=== PATIENT | male | born 1940 | race Caucasian/White ===

== ENCOUNTER 2023-03-27 20:06 | Inpatient (IN) | payer MEDICARE, OTHER, SELFPAY ==
[2023-03-27] VITALS (7 sets, daily range): BP systolic 132–143; BP diastolic 52–66; BMI 22.7; BMI 22.3
[2023-03-27 17:30] LABS: Hemoglobin 8.4 g/dL (13.0-18.0); Mean Corp Hgb Conc. 33.6 g/dL (33.0-37.0); Mean Corpuscular Hgb 29.2 pg (27.0-31.0); Mean Corpuscular Volume 86.8 fL (80.0-94.0); Mean Platelet Volume 10.6 fL (7.4-10.4); Platelet Count 103 10^3/uL (130-400); Red Blood Cell Count 2.88 10^6/uL (4.70-6.10); Red Cell Dist. Width 14.7 % (11.5-14.5)
[2023-03-27 17:40] LABS: INR 1.58; PT 18.7 Sec (11.4-14.6)
[2023-03-27 17:46] LABS: ALT (SGPT) 63 U/L (0-50); AST (SGOT) 66 U/L (17-59); Albumin 2.2 g/dl (3.5-5.0); Alkaline Phosphatase 326 U/L (38-126); Blood Urea Nitrogen 69 mg/dl (9-20); Calcium 8.5 mg/dl (8.4-10.2); Carbon Dioxide 24 mmol/L (22-30); Chloride 110 mmol/L (98-107); Estimated Creatinine Clearance 45 ml/min; Glucose 163 mg/dl (70-99); Potassium 4.5 mmol/L (3.5-5.1); Sodium 138 mmol/L (135-145); Total Bilirubin 1.3 mg/dl (0.2-1.3); Total Protein 5.1 g/dl (6.3-8.2); eGFR > 60.00
[2023-03-27 17:47] LABS: Lactic Acid 1.4 mmol/L (0.7-2.0)
--- NOTE | 2023-03-27 17:53 | PHANOTE ---
03/27/2023, [employer], spoke to pt.'s daughter to obtain pt.'s med. history; per daughter, pt. has Cyclophosphamide, Adriamycin, Rituxan, and Vincristine injections Q21D but is unsure of dosing. Could not confirm with another source. Per
daughter, pt. received chemo treatment last Monday (03/22/2023).
[2023-03-27 17:55] LABS: NT-proBNP 13000 pg/ml; Troponin I < 0.012 ng/ml
[2023-03-27 18:12] LABS: Absolute Neutrophils -Man Diff 1.4 10^3/uL (1.4-6.5); Band Neutrophils 8 % (0-3); Eosinophils 1 % (0-6); Lymphocytes 6 % (20-51); Monocytes 1 % (2-9); Normal RBC Morphology Yes; Platelets Checked Yes; Segmented Neutrophils 84 % (42-75); Total Cells Counted 100
[2023-03-27 18:13] LABS: White Blood Cell Count 1.6 10^3/uL (4.8-10.8)
--- NOTE | 2023-03-27 19:00 | EDRN ---
Report received, MART Silvestre in at bedside speaking with patient
--- NOTE | 2023-03-27 19:08 | ED.GENMED ---
History of Present Illness
General
Chief Complaint: Breathing Problem
Time Seen by Provider: 03/27/23 17:45
Travel History
Have you had any contact with someone who has COVID-19?: No
Do you have any symptoms of coronavirus? Fever > 100 degrees, chills, cough, shortness of breath, sore throat, loss of taste or smell, muscle aches, or headache?: Yes
Symptoms:: low pulseox.
History of Present Illness
History of Present Illness:
82-year-old male with history of hypertension and stage IV lymphoma currently being treated at [facility] in [facility] presents to the emergency department due to hypoxia. Patient was discharged from [facility]
last week, was admitted for inpatient chemotherapy and required multiple blood transfusions as well as iron infusion while inpatient. His last transfusion was 5 days ago. Per oncology protocol the patient is weighed and has a pulse ox screening
every day and was noted to have oxygen saturations in the low 80s today. He denies any chest pain or shortness of breath associated with that. He does note severe mouth discomfort and oral dryness as well as increase in urination today. He feels
generally weak and is unable to ambulate at his regular baseline. He also has reported leg swelling but his weights are stable. He is anticoagulated on Xarelto
Review of Systems
Review of Systems
Allergies reviewed?: Yes
All Other Systems: ROS reviewed and negative except as documented in HPI and ROS
Phy Exam
Physical Exam
Physical Exam:
GEN: Chronically ill-appearing, tachypneic but otherwise no immediate distress
Eyes: PERRLA, EOMs intact, no scleral icterus
HENT: NCAT, oral mucosa dry, no oral lesions
Lungs: Tachypneic, no accessory muscle use, faint crackles heard bilaterally but particularly in the left middle and lower [place]
Cardiac: RRR, no M/R/G, 1+ pitting edema bilateral lower extremities
Abdomen: S, NT, ND, NABS, no masses or hepatosplenomegaly
Neuro: AO x 3, no focal deficits to BUE/BLE, normal sensation throughout
MSK: No gross deformity or ecchymosis.
Skin: No rashes, petechiae. Normal color, no pallor or jaundice.
Psych: Calm, cooperative, proper hygiene
Scores
Heart Failure Risk
Heart Failure Risk Score: Yes
History of Stroke or TIA: No
History of intubation for respiratory distress: No
Heart rate on ED arrival >/= 110: No
SaO2 <90% on arrival on room air: Yes
HR >/=110 during 3min walk test (or too ill to perform test): Yes
ECG has acute ischemic changes: No
Urea >/=12mmol/L (BUN 33.6mg/dL): Yes
Serum CO2>/=35mmol/L: No
Troponin I or T elevated to HI Level (0.4mg/dL): No
NT-proBNP >/=5,000ng/L (5,000pg/ml): Yes
HF Risk Score: 5
Admission Status: VERY HIGH RISK 39.8% Consider admission to hospital
Course
Orders/Labs/Results
Orders:
Orders
03/27/23 16:54
Electrocardiogram (*1) Urgent
Reason for Study: Other
Other Reason for Exam: Possible Sepsis
Cardiac Monitoring- Treatment ONCE
EKG- Treatment ONCE
CR Chest - 2 Views Urgent
Comment:
Reason For Exam: suspected infection
03/27/23 17:12
Complete Blood Count/With Diff Urgent
Comprehensive Metabolic Panel Urgent
Lactic Acid Q4H
Comment: ON ICE, CANCEL 2ND ORDER IF FIRST LACTIC ACID LEVEL <2
Manual Differential Urgent
Prothrombin Time Urgent
Blood Culture Q30M
KEERTHI Source: Blood/Venous
Specimen Description:
Comment: FROM 2 SEPARATE SITES
Blood Culture Q30M
KEERTHI Source: Blood/Venous
Specimen Description:
Comment: FROM 2 SEPARATE SITES
03/27/23 17:23
NT-proBNP Urgent
Troponin I Urgent
03/27/23 19:08
0.9% Sodium Chloride 1000 ml [Nss] 1,000 ml IV BOLUS
03/27/23 19:14
COVID-19 Antigen Urgent
Source: Nasal Swab
Influenza A+B Rapid Molecular Urgent
KEERTHI Source: Nasal Swab
Specimen Description:
03/27/23 19:46
Procalcitonin Urgent
PCT Algorithmm Indication: Respiratory
03/27/23 19:49
Admit/Transfer Patient As Directed
Co-Sign Provider:
Level of Care: Inpatient admission
Assign to:: Telemetry
Physician / Group: vicente sandoval
Diagnosis: pneumonia
Reason for Telemetry: Arrhythmia
Date to Stop Telemetry: 03/30/23
Time to Stop Telemetry: 11:00
Reason for Hospitalization: pneumonia
Expected length of stay greater than two midnights?: Yes
ELOS- Estimated Length of Stay in days: 3
I certify the patient meets the requirements for IP care: Yes
03/27/23 19:51
Code Status As Directed
Resuscitation Status: Full Code
03/27/23 21:06
Acetaminophen [Tylenol] 650 mg PO Q4HPRN PRN
Sotalol [Betapace] 40 mg PO BID
03/27/23 21:06
ONCOLOGY CONSULT Routine
Consulting Provider: Bhargav Arzola
Was physician already notified: Yes
Legionella Urinary Antigen Routine
KEERTHI Source: Urine
Specimen Description:
Strep pneumoniae Antigen Routine
KEERTHI Source: Urine
Specimen Description:
Activity As Directed
Activity Level: Out of Bed-Early Mobility
Intake/ Output As Directed
Frequency: Per unit guidelines
Vital Signs As Directed
Frequency: Per unit guidelines
Weight As Directed
Frequency: Once
Comment: on admission
Pulse Ox/cont/shift [RESP] Routine
Quantity: 1
Pulse Ox/spot Check [RESP] Routine
Quantity: 1
Ot Eval And Treat Routine
Pt Eval And Treat Routine
Activity Level: As Tolerated
Speech Therapy Eval & Treat Routine
03/27/23 21:14
MRSA Screen Routine
KEERTHI Source: Nose
Specimen Description:
03/27/23 22:00
Latanoprost [Xalatan Ophthalmic Solution] 0 drop BOTH EYES HS
Piperacillin/Tazo 3.375 Gram [Zosyn] 3.375 gram in 50 ml IV Q6H
03/28/23 Breakfast
Regular
At Your Request: Limited Participation
Does patient need a safe tray?: No
Complete Blood Count/No Diff IN AM
Comprehensive Metabolic Panel IN AM
03/28/23 08:00
Allopurinol [Zyloprim] 300 mg PO DAILY
Amlodipine [Norvasc] 5 mg PO DAILY
Cholecalciferol (Vitamin D3) [VITAMIN D3 (cholecalciferol)] 25 mcg PO DAILY
Cyanocobalamin [Vitamin B-12] 1,000 mcg PO DAILY
Docusate Sodium [Colace] 100 mg PO DAILY
FOLic ACID [Folvite] 0.8 mg PO DAILY
Ferrous Sulfate [Feosol] 325 mg PO DAILY
Lactobac/Bifidobac [Visbiome] 1 cap PO DAILY
03/28/23 17:00
Rivaroxaban [Xarelto] 15 mg PO DAILY@1700
03/28/23 18:00
Atorvastatin [Lipitor] 20 mg PO QPM
Sodium Citrate/Citric Acid [Bicitra] 30 ml PO QPM
03/29/23 06:00
Complete Blood Count/No Diff IN AM
Comprehensive Metabolic Panel IN AM
03/30/23 06:00
Complete Blood Count/No Diff IN AM
Comprehensive Metabolic Panel IN AM
03/30/23 11:00
DC Protocol for Telemetry ONCE
03/31/23 06:00
Complete Blood Count/No Diff IN AM
Comprehensive Metabolic Panel IN AM
04/01/23 06:00
Complete Blood Count/No Diff IN AM
Comprehensive Metabolic Panel IN AM
Abnormal Lab Results
03/27/23 03/27/23
17:12 19:46
WBC 1.6 L* 10^3/uL
(4.8-10.8)
RBC 2.88 L 10^6/uL
(4.70-6.10)
Hgb 8.4 L g/dL
(13.0-18.0)
Hct 25.0 L %
(39.0-52.0)
RDW 14.7 H %
(11.5-14.5)
Plt Count 103 L 10^3/uL
(130-400)
MPV 10.6 H fL
(7.4-10.4)
Segmented Neutrophils 84 H %
(42-75)
Band Neutrophils 8 H %
(0-3)
Lymphocytes (Manual) 6 L %
(20-51)
Monocytes (Manual) 1 L %
(2-9)
PT 18.7 H Sec
(11.4-14.6)
Chloride 110 H mmol/L
(98-107)
BUN 69 H mg/dl
(9-20)
Glucose 163 H mg/dl
(70-99)
AST 66 H U/L
(17-59)
ALT 63 H U/L
(0-50)
Alkaline Phosphatase 326 H U/L
(38-126)
Total Protein 5.1 L g/dl
(6.3-8.2)
Albumin 2.2 L g/dl
(3.5-5.0)
Procalcitonin 1.75 H ng/ml
(0.0-0.25)
03/27/23 17:12
03/27/23 17:12
Vital Signs
Initial and Last Documented VS:
Initial Vital Signs
Temp Pulse Resp BP Pulse Ox
97.5 F 66 24 143/66 95
03/27/23 16:49 03/27/23 16:49 03/27/23 16:49 03/27/23 16:49 03/27/23 16:49
Last Documented Vital Signs
Temp Pulse Resp BP Pulse Ox
97.5 F 68 18 142/61 98
03/27/23 21:22 03/27/23 22:12 03/27/23 21:22 03/27/23 22:12 03/27/23 21:22
MDM/Problems Addressed
MDM/Problems Addressed:
At this point it is unclear whether the patient truly has a bilateral pneumonia versus vascular congestion with pulmonary edema. He does appear to be third spacing with lower extremity edema and bilateral crackles on exam however is intravascularly
dry. Hemoglobins are stable from his past hospitalization thus his elevated BUN to creatinine ratio is not likely indicative of a GI bleed particular given that he is anticoagulated. At this time we will try gentle IV hydration and determine if
the patient can handle this before jumping right to diuresis, feel it is prudent for the patient undergo an echocardiogram tomorrow morning to determine if this is truly acute CHF versus an alternative etiology such as pneumonia
*Critical Care Note
Total Time (30-74mins, 75-104mins- exclusive of procedures): Not Applicable
Update Note
Update Note:
Reviewed labs through patient's portal: Hemoglobin was in the mid eights at discharge from [facility]. BUN was 33 and creatinine 1.9 on March 21
ED Attending Note
-
Portions of this chart may have been created with voice recognition software.� Occasional wrong word or��sound alike� substitutions may have occurred due to the inherent limitations of voice recognition software.
Discharge Plan
Departure
Patient Disposition: Admit
Date of Disposition: 03/27/23
Time of Disposition: 19:14
Admit to: Med/Surg
Presentation/result/management discussed w/ accepting MD/DO: Hospitalist
Discharge Problem:
Acute hypoxemic respiratory failure
Interventions
Interventions:
*Risk Screen - Suicide Last Done: 03/27/23 16:56
*General Assessment Last Done: 03/27/23 16:56
*Neglect/Abuse Screening Last Done: 03/27/23 16:56
ED- Fall Risk Assessment Last Done: 03/27/23 16:57
*ED COVID-19 Vaccine History Last Done: 03/27/23 16:57
*Nursing Disposition Last Done: 03/27/23 21:19
ED- Cardiac Assessment Last Done: 03/27/23 16:57
ED- Pulmonary Assessment Last Done: 03/27/23 16:57
Discharge Date and Time
Discharge Date/Time: 03/27/23 21:22
[2023-03-27] MEDS: NSS 1000 IV (19:15)
--- NOTE | 2023-03-27 19:15 | HPS.HSE ---
Addendum entered and electronically signed by Kapil Martínez MD 03/27/23 20:36:
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
today at home. No fevers or cough or chest pain. Patient was recently hospitalized at [facility] in [place] for presumed pneumonia and heart failure. He received IV antibiotics and was diuresed. Patient completed cefdinir yesterday. Chest
x-ray shows bilateral reticulonodular markings. [place] [address] and pancytopenia with differential showing bands and decreased lymphocytes/monocytes.
Patient has hypoxic respiratory insufficiency. Cannot rule out recurrent pneumonia. Check blood cultures, Legionella, MRSA swab. Empiric vancomycin/Zosyn. Given IV fluid bolus. Could be an element of heart failure as well. Infiltrates on chest
x-ray concerning as well for diffuse large B-cell lymphoma/pneumonitis from chemotherapy. Oncology consulted. Patient recently had echocardiogram at [facility] and records available with daughter.
Original Note:
Family Physician
-
Family Physician:
Chief Complaint
-
Hypoxia
History of Present Illness
82-year-old with past medical history for A-fib, gout,, large B cell non-Hodgkin's lymphoma got his first dose of chemo last week presented to us with hypoxia at home. Patient was oxygenating only in the 80s at home. Patient denied any short of
breath, chest pain. Stated worsening of bilateral lower extremities edema. Denied weight gain. Stated chronic runny nose denied any cough. Patient denied any fever, chills. Patient denied any headache, dizziness, syncopal episode. Patient
denied any abdominal pain, nausea, vomiting, diarrhea.. Patient stated increased frequency in urination. Denied dysuria hematuria.
Chest x-ray with bilateral pneumonia. Admitting for further management.
Patient was admitted to hospital in [place] with pneumonia and heart failure. he was treated with diuretics and abx. patient also received multiple transfusion as well. Patient just finished cefdinir yesterday.
Medical History
Past Medical History
Past Medical History: Reports Other
Additional Past Medical History:
Diffuse large B cell non-Hodgkin's lymphoma
Glaucoma
Polycythemia
Hypertension
Gout
Hyperlipidemia
Past Surgical History: Reports Other
Additional Past Surgical History:
Meniscus repair
Hernia repair
Social History
Tobacco: Non-smoker
Alcohol: None
Drug: None
Personal: Single
Living: Alone
Family History
Family History: Not pertinent
Allergies / Home Medications
Allergies reflects when Allergies were last updated in [employer].
Home Medications with original date entered in [employer]
Allergy/Medication List:
Allergies
Allergy/AdvReac Type Severity Reaction Status Date / Time
No Known Allergies Allergy Unverified 03/27/23 16:49
Home Medications
Adriamycin 1 dose IV Q21D 03/27/23
Rituxan 1 dose IV Q21D 03/27/23
acidophilus-sporogenes 35 million-25 million cell tablet (Acidophilus Ex Str (L. sporog)) 1 tab PO DAILY 03/27/23
allopurinol 300 mg tablet 300 mg PO DAILY 03/27/23
amlodipine 5 mg tablet 5 mg PO DAILY 03/27/23
atorvastatin 20 mg tablet 20 mg PO QPM 03/27/23
cholecalciferol (vitamin D3) 1 tab PO DAILY 03/27/23
cyanocobalamin (vitamin B-12) 1 tab PO DAILY 03/27/23
cyclophosphamide 1 dose IV Q21D 03/27/23
docusate sodium 100 mg capsule (Stool Softener) 100 mg PO DAILY 03/27/23
ferrous sulfate 325 mg (65 mg iron) tablet 325 mg PO DAILY 03/27/23
folic acid 800 mcg tablet 0.8 mg PO DAILY 03/27/23
latanoprost 0.005 % eye drops 1 drp BOTH EYES HS 03/27/23
ondansetron 4 mg disintegrating tablet 4 mg PO Q6H PRN nausea/vomiting 03/27/23
prednisone 20 mg tablet 100 mg PO DIRECTED 03/27/23
rivaroxaban 15 mg tablet (Xarelto) 15 mg PO DAILY@1700 03/27/23
sodium citrate-citric acid 500 mg-334 mg/5 mL oral solution 30 ml PO QPM 03/27/23
sotalol 80 mg tablet 40 mg PO BID 03/27/23
vincristine 1 dose IV Q21D 03/27/23
Review of Systems
-
Constitutional: Reports No Symptoms
EENT: Reports No Symptoms
Respiratory: Reports Other (Hypoxia)
Cardiac: Reports No Symptoms
Abdomen/GI: Reports No Symptoms
: Reports No Symptoms
Musculoskeletal: Reports Edema (Bilateral lower extremities edema)
Skin: Reports No Symptoms
Neurological: Reports No Symptoms
Endocrine: Reports No Symptoms
Hematologic/Lymphatic: Reports No Symptoms
Psych: Reports No Symptoms
Physical Exam
Vital Signs
Vital Signs
Temp Pulse Resp BP Pulse Ox
97.5 F 61 19 137/54 95
03/27/23 16:49 03/27/23 19:00 03/27/23 19:00 03/27/23 19:00 03/27/23 16:49
Physical Exam
General: Well Developed, Well Nourished and No Apparent Distress
HEENT: NormoCephalic, Moist mucous membranes and Atraumatic
Respiratory: Clear
Cardiac: S1/S2 and Regular Rhythm; No Murmur or Rub
GI: Soft, Non Tender, Non Distended and Normal Bowel Sounds; No Organomegaly
Rectal: Deferred by Provider
Musculoskeletal: No Clubbing, No Cyanosis and Other (Bilateral lower extremities edema)
Skin: No Rash
Neuro: AO x 3 and Nonfocal/grossly intact
Psych: Calm
Laboratory Results
-
03/27/23 17:12
03/27/23 17:12
Laboratory Results
PT 18.7 Sec (11.4-14.6) H 03/27/23 17:12
INR 1.58 03/27/23 17:12
Lactic Acid Cancelled 03/27/23 21:00
Total Bilirubin 1.3 mg/dl (0.2-1.3) 03/27/23 17:12
AST 66 U/L (17-59) H 03/27/23 17:12
ALT 63 U/L (0-50) H 03/27/23 17:12
Alkaline Phosphatase 326 U/L (38-126) H 03/27/23 17:12
Troponin I < 0.012 ng/ml 03/27/23 17:23
Data Reviewed
-
Diagnostic Radiology: Report Reviewed by me
Lab Data: Labs Reviewed by me
Impression/Plan
-
# Acute hypoxia from bilateral pneumonia
-WBCs 1.6, bandemia
-COVID pending
-Flu pending
-Chest x-ray with impression of Bilateral reticulonodular markings as described, very likely representing bilateral pneumonia. Continued radiographic follow-up is advised.
-Blood cultures sent from ER
-IV Vanco and Zosyn
-Patient oxygenating 96% on 4 L
-Continue supplemental oxygen to keep sat greater than 92
-Wean as tolerated
- urine Legionella
-Strep pneumonia
# Anemia likely chronic/pancytopenia likely from diffuse large B cell non-Hodgkin's lymphoma
-got chemo a week ago, next due to 3 weeks.
-Hemoglobin 8.4, WBC 1.6, platelets 103
-No active bleeding
-Continue to monitor
-oncology consulted
# Elevated liver enzymes
-AST 66, ALT 63, ALK 326
-ctm
-denied abdominal pain
-ctm
# Gout
-Allopurinol continued
# Essential hypertension
-Norvasc continued
#HLD
-statin continued
# History of paroxysmal A-fib
-Sotalol and Xarelto continued
-EKG with impression of sinus rhythm with first-degree heart block, prolonged QT
# DVT prophylaxis
-On Xarelto
# CODE STATUS
-Full code
[2023-03-27 19:50] LABS: COVID-19 Antigen Negative (Negative)
[2023-03-27 20:26] LABS: Procalcitonin 1.75 ng/ml (0.0-0.25)
--- NOTE | 2023-03-27 21:17 | PTCARENOTE ---
pt arrived from ed, walked in unassisted on 4 L NC. aaox3, VSS, tele placed. see MAR and assessment for further details. call garvin within reach.
--- NOTE | 2023-03-27 21:41 | PHA.VAN.IN ---
Assessment
- Assessment
Renal Function: Unknown baseline
Concomitant Antimicrobials: ZOSYN
- Previous Dosing Experience
Previous Regimen: NONE
AUC Dosing Plan
- Dosing Variables
Dosing Weight (kg): 66.4
Dosing CrCl (ml/min): 44
Vd coefficient (L/kg): 0.7
- Empiric Dosing
Initial / Loading Dose: 1500MG
Maintenance Regimen: 1GM IV Q24H
Estimated AUC (mcg*h/mL): 526
Estimated Peak (mcg*h/mL): 34
Estimated Trough (mcg/ml): 13
Estimated Half Life (H): 16.6
Pharmacokinetics Vancomycin I
- -
Patient Age: 82
Patient Sex: Male
Vancomycin Day #: 1
Indication: Pulmonary/Respiratory
Requesting Provider: JAMARI
Height / Weight:
Height 5 ft 8 in
Actual Weight 66.395 kg
Pertinent Past Medical History: LARGE CELL LYMPHOMA
- Vital Signs / Lab Results
Temp Pulse Resp BP Pulse Ox
97.5 F 68 18 142/61 98
03/27/23 21:22 03/27/23 21:22 03/27/23 21:22 03/27/23 21:22 03/27/23 21:22
Lab Results - Hematology
03/27/23
17:12
WBC 1.6 L*
Band Neutrophils 8 H
Lab Results - Chemistry
03/27/23
17:12
BUN 69 H
Creatinine 1.2
Estimated Creat Clear 45
Albumin 2.2 L
03/27/23 03/27/23
17:12 21:00
Lactic Acid 1.4 Cancelled
Microbiology Results
03/27/23 19:14 Influenza Types A & B (FREDA) - Final
Nasal Swab Negative for Influenza A & B, NAAT
Negative results must be combined with clinical observations
and patient history.
Nucleic Acid Amplification test (NAAT)performed on the
[employer] platform.
[2023-03-27] MEDS: ZOSYN 50 IV (22:07)
[2023-03-27] MEDS: BETAPACE 40 MG PO (22:12)
[2023-03-27] MEDS: XALATAN OPHTHALMIC SOLUTION 1 DROP BOTH EYES (22:12)
[2023-03-27] MEDS: VANCOCIN 300 MG IV (23:01)
[2023-03-27] MEDS: VANCOCIN 300 ML IV (23:01)
[2023-03-28] VITALS (9 sets, daily range): BP systolic 124–147; BP diastolic 55–64
[2023-03-28] MEDS: ZOSYN 50 IV ×2 (03:20→09:16)
[2023-03-28 05:12] LABS: Mean Corp Hgb Conc. 32.4 g/dL (33.0-37.0); Mean Corpuscular Hgb 28.1 pg (27.0-31.0); Mean Corpuscular Volume 86.8 fL (80.0-94.0); Red Blood Cell Count 2.35 10^6/uL (4.70-6.10); Red Cell Dist. Width 14.6 % (11.5-14.5)
[2023-03-28 05:25] LABS: ALT (SGPT) 45 U/L (0-50); AST (SGOT) 43 U/L (17-59); Albumin 1.8 g/dl (3.5-5.0); Alkaline Phosphatase 242 U/L (38-126); Blood Urea Nitrogen 65 mg/dl (9-20); Calcium 8.2 mg/dl (8.4-10.2); Carbon Dioxide 25 mmol/L (22-30); Chloride 112 mmol/L (98-107); Estimated Creatinine Clearance 45 ml/min; Glucose 158 mg/dl (70-99); Potassium 4.3 mmol/L (3.5-5.1); Sodium 142 mmol/L (135-145); Total Bilirubin 1.4 mg/dl (0.2-1.3); Total Protein 4.4 g/dl (6.3-8.2); eGFR > 60.00
[2023-03-28] MEDS: VANCOCIN 200 IV (05:39)
[2023-03-28 05:40] LABS: Hematocrit 20.4 % (39.0-52.0); Hemoglobin 6.6 g/dL (13.0-18.0); White Blood Cell Count 0.8 10^3/uL (4.8-10.8)
[2023-03-28 07:05] LABS: Hematocrit 19.9 % (39.0-52.0); Hemoglobin 6.6 g/dL (13.0-18.0)
--- NOTE | 2023-03-28 07:05 | W.PN.UPDATE ---
Update Note
Progress Note Update
RN reports HH dropped from 8.4 to 6.6
Will recheck hh given sig drop and obtain type and screen
Blood consent obtained from pt. He has had transfusions before and understand benefits and risks. I asked if her needs premedication with prior transfusions but he said no.
Will order 1 unit PRBC
[2023-03-28 08:12] LABS: Mean Platelet Volume 11.1 fL (7.4-10.4); Platelet Count 79 10^3/uL (130-400)
[2023-03-28] MEDS: COLACE 100 MG PO (08:12)
[2023-03-28] MEDS: ZYLOPRIM 300 MG PO (08:12)
[2023-03-28] MEDS: FEOSOL 325 MG PO (08:12)
[2023-03-28] MEDS: VITAMIN D3 (cholecalciferol) 25 MCG PO (08:12)
[2023-03-28] MEDS: FOLVITE 0.800000000000000044 MG PO (08:12)
[2023-03-28] MEDS: VITAMIN B-12 1000 MCG PO (08:12)
[2023-03-28] MEDS: VISBIOME 1 CAP PO (08:12)
[2023-03-28] MEDS: BETAPACE PO (08:13)
[2023-03-28] MEDS: NORVASC 5 MG PO (08:13)
--- NOTE | 2023-03-28 09:03 | PTOTSP ---
Dysphagia Evaluation
Patient presents with signs concerning for WFL-mild oropharyngeal dysphagia. He reported signs of aspiration (i.e., coughing with liquids greater than solids) prior to admission and has had recurrent PNA (i.e., recently hospitalized with PNA and/or
HF, now admitted with concern for b/l PNA.) He is at an elevated risk for complications if aspiration were to occur given lymphoma with current chemo.
Video swallow study warranted to assess oral and pharyngeal stages of swallowing, r/o aspiration, and provide further recommendations. Patient would like to discuss this further with his daughter who is an SEMICONDUCTOR EQUIPMENT TECHNICIAN.
Recommend:
1. Regular, Thin Liquids
2. Medications as best tolerated
3. General aspiration precautions
4. Oral care 3-5x daily to reduce risk for complication if aspiration were to occur
5. Video swallow study if patient in agreement.
[2023-03-28] MEDS: MIRALAX 17 GRAMS PO (09:17)
--- NOTE | 2023-03-28 09:30 | CON.ONC ---
Addendum entered and electronically signed by Liliana Narvaez MD 03/28/23 10:58:
Case d/w Dr. Christian. She's been following patient for 14 years, originally for ET, on Hydrea
She notes patient recently had weight loss and cytopenias, hydrea stopped
BM biopsy showed marginal zone lymphoma
PET showed patchy areas of uptake in bone marrow, as well as a focus of uptake at left pectoral muscle - biopsy c/w DLBCL
Pretreatment chemo w/ EF 60%
Patient underwent port placement and spiked fever to 103 the next day
He was admitted to hospital, chest imaging showed lung infiltrates, treated as pneumonia and CHF
He then got chemo #1, R-mini CHOP (adriamycin 25mg/m2) on 03/22, with GCSF on 03/23
Still concern for atypical infection. Would consider bronch.
Original Note:
Impression
Impression
hypoxia, abnormal CXR
DLBCL, s/p cycle #1 'half-dose' RCHOP + GCSF, given early/mid Mar 2023
hospital admission ([facility]) last week for hypoxia, treated for PNA and CHF
afib on Xarelto
pancytopenia, from chemo
h/o PVera, previously treated w/ Hydrea
Plan
Plan
Agree w/ plans for pRBCs
It appears that he received GCSF, no role for additional growth factor
Monitor CBC
Currently on empiric Zosyn/Vanco (just completed course of cefdinir)
Clinical picture does not seem c/w typical pneumonia or CHF exacerbation - would consider pulm and cardiology evaluation
Would obtain CT chest if/when renal function improves, I have concern for atypical infection and/or pneumonitis
Records requested from [facility]. Will reach out to Dr. Christian as well.
Patient History
History of Present Illness
82 yo M w/ recently diagnosed DLBCL (via biopsy of right axilla or right lung/chest, unclear site, also BM biopsy), received cycle # RCHOP + GCSF ('half dose' per patient) with Dr. Christian in [place], presented with hypoxia, pulse ox in the low
80s at home. His recent history is noted for hospital admission in shortly after first chemo treatment, for dyspnea, treated for heart failure + pneumonia, recently finished cefdinir. CXR showed bilateral reticulonodular markings. CBC noted for
WBC 0.8, hgb 6.6, platelet 79. BUN is 65, creatinine is 1.2. He's required prbcs and was given iron infusions, reports. complains of dry mouth, decreased appetite, and some leg swelling. He denies bleeding, fevers.
He's well known to Dr. Christian, has seen her for 14 years for history of PVera, previously treated with Hydrea, now discontinued. He has afib, on Xarelto, director energy is Dr. Rossi in . PMD is Dr. Canela in .
Past-Medical/Surgical History
PMH/PSH - as per the HPI, also noted for gout, HTN, HLD, glaucoma
SH - Lives in , family in [place], non smoker
FH - N/C
Patient Medication
Medication Instructions Recorded Confirmed Last Taken Type
Adriamycin 1 dose IV Q21D Cancer 03/27/23 Unknown History
Rituxan 1 dose IV Q21D Cancer 03/27/23 Unknown History
acidophilus-sporogenes 35 1 tab PO DAILY probiotic 03/27/23 03/27/23 03/27/23 History
million-25 million cell tablet
(Acidophilus Ex Str (L. sporog))
allopurinol 300 mg tablet 300 mg PO DAILY gout 03/27/23 03/27/23 03/27/23 History
amlodipine 5 mg tablet 5 mg PO DAILY blood pressure 03/27/23 03/27/23 03/27/23 History
atorvastatin 20 mg tablet 20 mg PO QPM High Cholesterol 03/27/23 03/27/23 03/26/23 History
cholecalciferol (vitamin D3) 1 tab PO DAILY Supplement 03/27/23 03/27/23 03/27/23 History
cyanocobalamin (vitamin B-12) 1 tab PO DAILY Supplement 03/27/23 03/27/23 03/27/23 History
cyclophosphamide 1 dose IV Q21D Cancer 03/27/23 Unknown History
docusate sodium 100 mg capsule 100 mg PO DAILY Constipation 03/27/23 03/27/23 03/27/23 History
(Stool Softener)
ferrous sulfate 325 mg (65 mg 325 mg PO DAILY Supplement 03/27/23 03/27/23 03/27/23 History
iron) tablet
folic acid 800 mcg tablet 0.8 mg PO DAILY Supplement 03/27/23 03/27/23 03/27/23 History
latanoprost 0.005 % eye drops 1 drp BOTH EYES HS Eye Condition 03/27/23 03/27/23 03/26/23 History
ondansetron 4 mg disintegrating 4 mg PO Q6H PRN nausea/vomiting 03/27/23 03/27/23 Unknown History
tablet
prednisone 20 mg tablet 100 mg PO DIRECTED 03/27/23 03/27/23 03/26/23 History
Anti-Inflammatory
rivaroxaban 15 mg tablet (Xarelto) 15 mg PO DAILY@1700 Blood Clot 03/27/23 03/27/23 03/26/23 History
Prevention/Tx
sodium citrate-citric acid 500 30 ml PO QPM 03/27/23 03/27/23 03/26/23 History
mg-334 mg/5 mL oral solution
sotalol 80 mg tablet 40 mg PO BID Arrhythmia 03/27/23 03/27/23 03/27/23 History
vincristine 1 dose IV Q21D Cancer 03/27/23 Unknown History
Active Medications
Generic Name Dose Route Start Last Admin
Trade Name Freq PRN Reason Stop Dose Admin
Acetaminophen 650 mg 03/27/23 21:06
Acetaminophen 325 Mg Tablet PO 04/24/23 21:05
Q4HPRN PRN
if temp > 101 F
Allopurinol 300 mg 03/28/23 08:00 03/28/23 08:12
Allopurinol 300 Mg Tablet PO 04/25/23 07:59 300 mg
DAILY ENRIQUE Administration
Amlodipine Besylate 5 mg 03/28/23 08:00 03/28/23 08:13
Amlodipine 5 Mg Tablet PO 04/25/23 07:59 5 mg
DAILY ENRIQUE Administration
Atorvastatin Calcium 20 mg 03/28/23 18:00
Atorvastatin (Lipitor) 20 Mg Tablet PO 04/25/23 17:59
QPM ENRIQUE
Cholecalciferol 25 mcg 03/28/23 08:00 03/28/23 08:12
Cholecalciferol (Vitamin D3) 25 Mcg Tablet (1,000 Units) PO 04/25/23 07:59 25 mcg
DAILY ENRIQUE Administration
Citric Acid/Sodium Citrate 30 ml 03/28/23 18:00
Sodium Citrate/Citric Acid (Oral Solution) 30 Ml Cup PO 04/25/23 17:59
QPM ENRIQUE
Cyanocobalamin 1,000 mcg 03/28/23 08:00 03/28/23 08:12
Cyanocobalamin 1,000 Mcg Tablet PO 04/25/23 07:59 1,000 mcg
DAILY ENRIQUE Administration
Docusate Sodium 100 mg 03/28/23 08:00 03/28/23 08:12
Docusate Sodium 100 Mg Capsule PO 04/25/23 07:59 100 mg
DAILY ENRIQUE Administration
Ferrous Sulfate 325 mg 03/28/23 08:00 03/28/23 08:12
Ferrous Sulfate 325 Mg Tablet PO 04/25/23 07:59 325 mg
DAILY ENRIQUE Administration
Folic Acid 0.8 mg 03/28/23 08:00 03/28/23 08:12
Folic Acid 0.4 Mg Tablet PO 04/25/23 07:59 0.8 mg
DAILY ENRIQUE Administration
Heparin Sodium (Porcine) 500 unit 03/28/23 03:57 03/28/23 04:34
Heparin Flush Pf (100 Unit/Ml) 5 Ml Syringe IV 04/25/23 03:56 500 unit
PRN PRN Administration
PORT FLUSH
Piperacillin Sod/Tazobactam Sod 3.375 gram in 50 mls @ 100 mls/hr 03/27/23 22:00 03/28/23 09:16
Zosyn IV 50 mls
Q6H ENRIQUE Administration
Vancomycin HCl 1 gram in 200 mls @ 200 mls/hr 03/28/23 06:00 03/28/23 05:39
Vancocin IV 200 mls
Q24H ENRIQUE Administration
Protocol
Lactobacillus/Bifidobacterium 1 cap 03/28/23 08:00 03/28/23 08:12
Lactobac/Bifidobac (Visbiome) PO 04/25/23 07:59 1 cap
DAILY ENRIQUE Administration
Latanoprost 0 drop 03/27/23 22:00 03/27/23 22:12
Latanoprost 0.005% (Ophthalmic Solution) 2.5 Ml Bottle BOTH EYES 04/24/23 21:59 1 drop
HS ENRIQUE Administration
Polyethylene Glycol 17 grams 03/28/23 10:00 03/28/23 09:17
Polyethylene Glycol Powder 17 Grams Packet PO 04/25/23 09:59 17 grams
DAILY ENRIQUE Administration
Rivaroxaban 15 mg 03/28/23 17:00
Rivaroxaban 15 Mg Tablet PO 04/25/23 16:59
DAILY@1700 ENRIQUE
Sodium Chloride 0 flush 03/27/23 22:00
Sodium Chloride 0.9% (Flush) Syringe IV 04/24/23 21:59
PER PROTOCOL ENRIQUE
Sotalol HCl 40 mg 03/27/23 21:06 03/28/23 08:13
Sotalol 80 Mg Tablet PO 04/24/23 21:05 Not Given
BID ENRIQUE
Review of Systems
-
History Source: Patient
Constitutional: Reports No Appetite and Fatigue; Denies Fever
EENT: Reports Other (dry mouth, chapped lips); Denies Sore Throat
Respiratory: Reports Trouble Breathing; Denies Hemoptysis
Cardiac: Denies Chest Pain
GI: Denies Abdominal Pain, Nausea, Vomiting, Diarrhea, Constipated or Bloody Stools
Musculoskeletal: Reports Edema
Hematologic/Lymphatic: Denies Swollen Glands
Physical Exam
-
General: Well Developed, Well Nourished, No Apparent Distress and Comfortable; Negative Appears in Distress
HEENT: Negative Moist Mucous Membranes
Cardiology: Normal Sinus Rhythm and Murmur
Pulmonary: Rales (dry rales throughout)
GI: Soft and Normal Bowel Sounds
Musculoskeletal: Edema, Right Lower Extrem and Edema, Left Lower Extrem
Extremities: Edema (trace LE); Negative Phlebitic Signs
Neurology: Non Focal, No Lateralizing Symptoms and No Word Finding Difficulty
Skin: Warm and Dry; Negative Rash
Hematologic / Lymphatic: No Lymphadenopathy
Psych: Calm and Intact Judgement/Insight
Labs
Lab Results
WBC 0.8 10^3/uL (4.8-10.8) L* 03/28/23 04:32
RBC 2.35 10^6/uL (4.70-6.10) L 03/28/23 04:32
Hgb 6.6 g/dL (13.0-18.0) L* 03/28/23 05:57
Hct 19.9 % (39.0-52.0) L* 03/28/23 05:57
MCV 86.8 fL (80.0-94.0) 03/28/23 04:32
MCH 28.1 pg (27.0-31.0) 03/28/23 04:32
MCHC 32.4 g/dL (33.0-37.0) L 03/28/23 04:32
RDW 14.6 % (11.5-14.5) H 03/28/23 04:32
Plt Count 79 10^3/uL (130-400) L D 03/28/23 04:32
MPV 11.1 fL (7.4-10.4) H 03/28/23 04:32
Creatinine 1.2 mg/dL (0.7-1.3) 03/28/23 04:32
Vital Signs
Vital Signs
Temp Pulse Resp BP Pulse Ox
97.1 F 58 20 124/59 96
03/28/23 08:07 03/28/23 08:13 03/28/23 08:07 03/28/23 08:13 03/28/23 08:07
--- NOTE | 2023-03-28 10:28 | PHA.VAN.FU ---
Vancomycin Assessment / Plan
- Assessment
Renal Function: Stable
WBC's are: Trending Down
Neutropenia: ANC 1400 03/27
In the past 24 hrs, patient has been: Afebrile
Concomitant Antimicrobials: piperacillin/tazobactam
- Dosing Plan
Adjust Regimen to: dosing by level - unknown baseline, will follow level trends for now
Received 1500mg 03/27 23:01 PLUS 1000mg 03/28 05:39 - no further dosing today
- Monitoring Plan
Random Level: 03/29 0600
MRSA Screen: Ordered per protocol
- Follow Up
Pharmacy will continue to follow.
Vancomycin Follow UP
- -
Patient Age: 82
Patient Sex: Male
Vancomycin Day #: 2
Indication: Pulmonary/Respiratory
Requesting Provider: Tammie Frost
Pertinent Antimicrobial Allergies:
NKDA
Height / Weight:
Height 5 ft 8 in
Actual Weight 66.395 kg
Pertinent Past Medical History: DLBCL (s/p cycle 1)
- Vital Signs / Lab Results
Temp Pulse Resp BP Pulse Ox
97.1 F 60 16 130/55 96
03/28/23 10:24 03/28/23 10:24 03/28/23 10:24 03/28/23 10:24 03/28/23 08:07
Lab Results - Hematology
03/27/23 03/28/23
17:12 04:32
WBC 1.6 L* 0.8 L*
Band Neutrophils 8 H
Lab Results - Chemistry
03/27/23 03/28/23
17:12 04:32
BUN 69 H 65 H
Creatinine 1.2 1.2
Estimated Creat Clear 45 45
Albumin 2.2 L 1.8 L
03/27/23 03/27/23
17:12 21:00
Lactic Acid 1.4 Cancelled
Microbiology Results
03/27/23 21:14 Nasal Screen MRSA (PCR) - Final
Nose MRSA not detected - performed by PCR methodology.
03/28/23 03:25 Legionella Urinary Antigen - Final
Urine Negative for Legionella pneumophila Serogroup 1 antigen.
A negative result does not rule out the possiblity of
Legionella infection due to other serogroups or species of
Legionella. Clinical correlation is recommended.
Streptococcus pneumoniae Antigen (M - Final
Negative for Streptococcus pneumoniae antigen.
A negative result does not exclude infection with
Streptococcus pneumoniae. Clinical correlation is
recommended.
03/27/23 19:14 Influenza Types A & B (FREDA) - Final
Nasal Swab Negative for Influenza A & B, NAAT
Negative results must be combined with clinical observations
and patient history.
Nucleic Acid Amplification test (NAAT)performed on the
[employer] platform.
--- NOTE | 2023-03-28 10:57 | W.PN.HOSP.TC ---
Today's Communication/Plan
-
Obtain echocardiogram. Consult cardiology
Consult ID. Continue with antibiotics for now.
Assessment / Plan
Assessment / Plan
# Acute hypoxia from bilateral pneumonia
-WBCs 1.6, bandemia
-COVID pending
-Flu pending
-Chest x-ray with impression of Bilateral reticulonodular markings as described, very likely representing bilateral pneumonia. Continued radiographic follow-up is advised.
-Blood cultures sent from ER
-IV Vanco and Zosyn
-Patient oxygenating 96% on 4 L
-Continue supplemental oxygen to keep sat greater than 92
-Wean as tolerated
- urine Legionella
-Strep pneumonia
# Shortness of breath with hypoxia -Patient has bilateral reticular nodular markings. He apparently was treated for possible pneumonia and heart failure just over a week and another hospital. He went home without need of oxygen. Symptoms
reoccurred while at home. Discussing with oncologist he apparently had abnormal chest x-ray before he went on chemotherapy last week.
He is pancytopenic but not neutropenic. He is nontoxic. Afebrile. Unclear etiology for his bilateral reticulonodular shadowing noticed got broad differential including infectious but not acting like typical pneumonia. He does have elevated
procalcitonin. Continue with empirical antibiotics. Consult ID.
With more rapid symptom onset and increasing lower extremity edema suspect heart failure is in the differential-consult cardiology and obtain an echocardiogram.
- Anemia likely chronic/pancytopenia likely from diffuse large B cell non-Hodgkin's lymphoma
-got chemo a week ago, next due to 3 weeks.
-Hemoglobin dropped to 6.6. He recently had transfusion a week ago. Denies rectal bleeding. He does have hemorrhoids-and the bleeding on and off.
-No active bleeding
-Transfuse 1 unit of PRBC and follow H&H.
Lymphoma on chemotherapy
-Consult hematology
# Elevated liver enzymes
-AST 66, ALT 63, ALK 326
-ctm
-denied abdominal pain
-ctm
# Gout
-Allopurinol continued
# Essential hypertension
-Norvasc continued
#HLD
-statin continued
# History of paroxysmal A-fib
-Sotalol and Xarelto continued
-EKG with impression of sinus rhythm with first-degree heart block, prolonged QT
# DVT prophylaxis
-On Xarelto
# CODE STATUS
-Full code
Discussed with the daughter.
Discussed with Dr. Liliana Narvaez oncologist.
Anticipated Discharge: > 48 hours
Subjective/Interval History
-
Date of Service: March 28, 2023
Post discharge from recent admission in [facility] he did not require oxygen.
Once he was at home he started become short of breath and hypoxic.
Denies chest pain or palpitations.
Losing weight. Increasing lower extremity edema noted.
Denies much of cough. No fever or chills.
Objective Data
-
Labs:
Laboratory Results
03/28/23 03/28/23
04:32 05:57
WBC 0.8 L*
Hgb 6.6 L* D 6.6 L*
Hct 20.4 L* 19.9 L*
Plt Count 79 L D
Sodium 142
Potassium 4.3
Chloride 112 H
Carbon Dioxide 25
BUN 65 H
Creatinine 1.2
Glucose 158 H
Calcium 8.2 L
Total Bilirubin 1.4 H
AST 43
ALT 45
Alkaline Phosphatase 242 H
Vital Signs:
Vital Signs
Temp Pulse Resp BP Pulse Ox
97.4 F 63 16 134/55 96
03/28/23 10:46 03/28/23 10:46 03/28/23 10:46 03/28/23 10:46 03/28/23 08:55
I&O
03/27/23 03/28/23 03/29/23
06:59 06:59 06:59
Intake Total 720 / 720 0 / 0
Output Total 375 / 375
Balance 345 / 345 0 / 0
Review of Systems
-
Constitutional: Denies Fever
EENT: Denies Sore Throat
Respiratory: Reports Trouble Breathing; Denies Cough
Cardiac: Denies Chest Pain
Genitourinary: Denies Dysuria
Neuro: Denies Dizzy
Physical Exam
-
General: No Apparent Distress
HEENT: Moist Mucous Membranes
Respiratory: Crackles (Bilateral lower zone left more obvious than right); Negative Wheezes
Cardiac: Regular Rhythm, S1/S2 and JVD
Musculoskeletal: Edema, Right Lower Extrem and Edema, Left Lower Extrem
Neuro: AO x 3
Psych: Calm
Data Reviewed
-
Medical Tests (Nuc Med, Echo etc): Report Reviewed by me (Chest x-ray)
Labs: Labs Reviewed by me
--- NOTE | 2023-03-28 12:53 | PN.CDI ---
CDI
- -
CDI:
Physician Documentation Request
Admit Date: 03/27/23 20:06
Dear Doctor Bonifacio,
Patient admitted with pneumonia.
03/27 Nursing skin assessment, 'Stage 1 sacral pressure injury, POA.'
Physician documentation of the type and location of wounds is required for compliant documentation. Based on the above clinical findings and your assessment, please provide the following in your progress note:
Type (etiology) of ulcer/wound:
- Pressure (decubitus) ulcer
- Other
- Unable to determine
For a pressure ulcer, please also include the stage* of the ulcer:
- Stage 1 - Skin intact, non-blanchable redness
- Stage 2 - Partial thickness loss of dermis, includes intact or open blister
- Stage 3 - Full thickness tissue not including bone, tendon or muscle
- Stage 4 - Full thickness tissue loss, including exposed bone, tendon or muscle
- Unstageable - Full thickness loss in which the base of the ulcer is covered by slough (yellow, robin, pierre, green or brown) and/or eschar (robin, brown or black) in the wound bed.
- Unable to determine
Use of terms such as suspected, likely, concern for, or probable (associated with a specific diagnosis that is being evaluated, monitored, or treated as if it exists) are acceptable and can be coded in the inpatient setting, when documented at the
time of discharge.
Thank you,
Hailee DURÁN,RN,CCDS
CDI Specialist
Available via tiger text
Please use your independent medical judgment in providing your response.
*Source: National Pressure Ulcer Advisory Panel (NPUAP)
--- NOTE | 2023-03-28 13:21 | PN.CDI ---
CDI
- -
CDI:
Physician Documentation Request
Admit Date: 03/27/23 20:06
Dear Doctor Bonifacio,
Patient admitted with pneumonia.
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
Please provide in your note the likely etiology/ etiologies of pancytopenia:
Multifactorial due to diffuse large B cell non-Hodgkin's lymphoma and chemotherapy
Diffuse large B cell non-Hodgkin's lymphoma only
Other
Use of terms such as suspected, likely, concern for, or probable (associated with a specific diagnosis that is being evaluated, monitored, or treated as if it exists) are acceptable and can be coded in the inpatient setting, when documented at the
time of discharge.
Thank you,
Hailee DURÁN,RN,CCDS
CDI Specialist
Available via [place] text
Please use your independent medical judgment in providing your response.
--- NOTE | 2023-03-28 15:44 | CON.CAR ---
Addendum entered and electronically signed by Aakash Farley DO 03/28/23 20:07:
I saw and examined the patient.
The Bond Clerk's note was reviewed and I agree with the note.
Comment:
Plan:
Multifacctorial dyspnea.
His pBNP is lower than recent admit. Await records
Echo reviewed with pt and daughter, EF is preserved and discussed pathophysiology of MR and neither of which are significant.
Will give Lasix 40 mg IV X1 and assess response
Imaging showed bilateral pneumonia. COVID and flu negative.� Procalcitonin elevated.� X-ray did show reticulonodular markings, and proBNP elevated at 13,000 resulting in cardiology consultation for evaluation for component of CHF.� Of note upon
review of records from [facility] admission, at that time proBNP was 19,927, and creatinine was 1.9.� Today creatinine is 1.2.
Remains in sinus, cont Sotalol and renally dosed Xarelto.
Pt would like to transition to [facility] for cardiology with Dr Curtis if possible
Original Note:
Consultation
Consultation Request
Date/Time Consultation Performed: 03/28/23
Requesting Provider: Dr. Valdovinos
Performing Provider: Zuleima Whiteside PA-C for Dr. Farley
Reason for Consultation: concern for CHF
Medical History
-
Chief Complaint: hypoxia
History of Present Illness:
Patient is an 82 yo M with PMH of non Hodgkin's lymphoma, followed by Dr. Ron Christian in [place], currently on chemotherapy including rituxan, adriamycin, vincristine, udenyea, and cyclophosphamide (next chemo scheduled for 04/12/23). He has history of
paroxysmal atrial fibrillation on chronic sotalol and xarelto, followed by Dr. Tramaine Rossi in [place]. He also has history of gout, hypertension, hyperlipidemia. He was admitted to [facility] 2 weeks ago for shortness of breath and diagnosed
with a unilateral pneumonia and treated. He came to reside with his daughter after this admission. Yesterday morning he had a pulse ox reading which was in the 80s, resulting in him coming to the emergency room. He did not feel shortness of
breath like prior to his [place] admission. Imaging showed bilateral pneumonia, COVID and flu negative. Procalcitonin elevated. X-ray did show reticulonodular markings, and proBNP elevated at 13,000 resulting in cardiology consultation for
evaluation for component of CHF. Of note upon review of records from [facility] admission, at that time proBNP was 19,927, and creatinine was 1.9. Today creatinine is 1.2. No CP, palpitations, LE edema, weight gain. He did have 3 transfusions
last week per daughter. hgb 6.6 on 03/28. He states he feels as though he has been urinating a lot as an outpatient. He is not on diuretic as OP. No prior history of kidney issues to his/family knowledge.
Past Medical History
Past Medical History: Other (in HPI)
Social History
Tobacco: Former Smoker
Living: With Family (daughter and son in law)
Employment: Retired
Allergies / Home Medications
Allergy/AdvReac Type Severity Reaction Status Date / Time
No Known Allergies Allergy Unverified 03/27/23 16:49
Medication Instructions Recorded Confirmed Type
Adriamycin 1 dose IV Q21D Cancer 03/27/23 History
Rituxan 1 dose IV Q21D Cancer 03/27/23 History
acidophilus-sporogenes 35 1 tab PO DAILY probiotic 03/27/23 03/27/23 History
million-25 million cell tablet
(Acidophilus Ex Str (L. sporog))
allopurinol 300 mg tablet 300 mg PO DAILY gout 03/27/23 03/27/23 History
amlodipine 5 mg tablet 5 mg PO DAILY blood pressure 03/27/23 03/27/23 History
atorvastatin 20 mg tablet 20 mg PO QPM High Cholesterol 03/27/23 03/27/23 History
cholecalciferol (vitamin D3) 1 tab PO DAILY Supplement 03/27/23 03/27/23 History
cyanocobalamin (vitamin B-12) 1 tab PO DAILY Supplement 03/27/23 03/27/23 History
cyclophosphamide 1 dose IV Q21D Cancer 03/27/23 History
docusate sodium 100 mg capsule 100 mg PO DAILY Constipation 03/27/23 03/27/23 History
(Stool Softener)
ferrous sulfate 325 mg (65 mg 325 mg PO DAILY Supplement 03/27/23 03/27/23 History
iron) tablet
folic acid 800 mcg tablet 0.8 mg PO DAILY Supplement 03/27/23 03/27/23 History
latanoprost 0.005 % eye drops 1 drp BOTH EYES HS Eye Condition 03/27/23 03/27/23 History
ondansetron 4 mg disintegrating 4 mg PO Q6H PRN nausea/vomiting 03/27/23 03/27/23 History
tablet
prednisone 20 mg tablet 100 mg PO DIRECTED 03/27/23 03/27/23 History
Anti-Inflammatory
rivaroxaban 15 mg tablet (Xarelto) 15 mg PO DAILY@1700 Blood Clot 03/27/23 03/27/23 History
Prevention/Tx
sodium citrate-citric acid 500 30 ml PO QPM 03/27/23 03/27/23 History
mg-334 mg/5 mL oral solution
sotalol 80 mg tablet 40 mg PO BID Arrhythmia 03/27/23 03/27/23 History
vincristine 1 dose IV Q21D Cancer 03/27/23 History
Review of Systems
-
History Source: Patient and Family
All other systems: Negative unless noted
Physical Exam
Vital Signs
Temp Pulse Resp BP Pulse Ox
97.9 F 69 17 144/64 94
03/28/23 15:00 03/28/23 15:00 03/28/23 15:00 03/28/23 15:00 03/28/23 15:00
Lab Results
03/28/23 05:57
03/28/23 04:32
Troponin I < 0.012 ng/ml 03/27/23 17:23
Hll-Y-Lfzcarevcat Pept 50854 pg/ml 03/27/23 17:23
Physical Exam
General: No Apparent Distress, Comfortable and Other (on supp O2, appears frail)
HEENT: Normocephalic, Anicteric and Moist Mucous Membranes
Respiratory: Crackles (B/L bases)
Cardiac: S1/S2, Regular Rhythm and Murmur
GI: Soft, Non Tender, Non Distended and Normal Bowel Sounds
Skin: Warm and Dry
Neuro: AO x 3
Impression / Plan
-
Primary Social Psychologist: Dr. Tramaine Rossi in [place]
Assessment:
-Hypoxia
-B/L PNA, concern for atypical bacteria
-elevated procalcitonin
-suspected component of acute CHF, unknown type
-recent admission to [facility] for PNA 03/2023
-Paroxysmal atrial fibrillation
-chronic sotalol therapy
-chronic xarelto therapy
-cardiac murmur on exam
-anemia/thrombocytopenia
-recent JACOBY/renal insufficiency
-diffuse large B cell non-Hodgkin's lymphoma, on chemotherapy
-elevated LFTs, improving
-gout
-HTN
-HLD
Nuclear stress test 07/06/2022: EF 83%, no evidence of transient cavity dilatation, images negative for exercise-induced ischemia
ECHO 02/20/23 at [facility]: EF 67.5%, minimal aortic stenosis with peak/mean gradients 18/9 mmHg
ECHO 03/28/23: EF preserved, mild cLVH, mild to mod MR, mild with peak/mean gradients 28/14mmHg
Plan:
-Patient presented after family noted hypoxia by pulse ox at home
-CXR with evidence of bilateral pneumonia. Continue antibiotics per primary service
-As imaging with evidence of reticulonodular markings, and elevated proBNP, concern for acute CHF also contributing. Of note compared to recent admission at [facility] within the last 2 weeks, proBNP is slightly improved (06868 to 50751)
-continue supp O2
-echo with results as above
-would plan to give dose of IV lasix today and assess response.
-Cr improved from admission at [facility] (Cr was 1.9), now 1.2. follow with diuresis
-records requested and reviewed from primary bag shaker - including last office visit 11/01/22, echo 02/20/23, EKG 03/20/23, nuclear stress test 07/07/23.
-in SR on review of tele. continue sotalol 40mg BID (may need to reduce dose based on renal function) and renally dosed xarelto 15mg QPM. QTc 515ms by EKG 03/27/23
-trop negative
-d/w patient and family at bedside.
Data Reviewed
-
EKG: Tracing Personally Visualized and interpreted
Radiology: Report Reviewed by me
Medical Tests (Nuc Med, Echo etc): Report Reviewed by me
Labs: Labs Reviewed by me
Old Records: Requested and Reviewed
--- NOTE | 2023-03-28 15:53 | CM ---
Alert awake oriented patient who lives alone in a rancher home with 3 step to enter and bed and bathroom on first floor. He is independent in driving and in all activities of daily living.He lives in [place] but is staying with daughter Lilian in
[place] ([address] [facility]) He current with [facility] requested resumption . Spoke with liaison Hailee vasques [facility] .He has chemotherpay treatments also.
Current [facility] hx / No SNF history
Pharmacy [facility]
PCP Chad Espino
PLAN Home with [facility]
--- NOTE | 2023-03-28 16:17 | PTOTSP ---
Video Swallow Examination
Patient presents with functional oral stage and at least moderate-severe pharyngeal dysphagia. Esophageal sweep was concerning for retention and possible retrograde flow below the level of the pharyngoesophageal segment.
*Silent aspiration occurred with thin liquids via consecutive cup sips and as a thin liquid wash.
*Pharyngoesphageal segment opening was reduced and with solids this lead to retention of entire bolus. Patient did not sense retention but could partially clear it with cued swallows. There is an elevated risk for choking with regular solids at
this time.
Etiology of dysphagia may be due to deconditioning/weakness from patient's lymphoma and chemo treatment. However, etiology of sensory changes (i.e., decreased sensation of aspiration and pharyngeal residue) are unknown. Patient's daughter (also
an INSULATION MECHANIC) reported chronic dysphagia on-going 1-1.5 months with patient slowly eliminating solids (bagels, then meats). Consider a GI consult to further assess pharyngoesophageal segment and determine if patient may be a candidate for any
intervention to assist with pharyngoesophageal clearance.
Extensive education completed with patient and his daughter (Lilian) with his consent. Patient consented to modified diet below understanding risks/complications of aspiration.
Recommend:
1. IDDSI Level 5 (Minced and Moist), IDDSI Level 0 (Thin Liquids) via single cup sips
2. Medications - crushed and mixed in applesauce
3. Strategies: small single sips/bites, slow rate, multiple swallows (to clear pharynx), intermittent cough and re-swallow (to try and clear voice box/airway)
4. Precautions: avoid alternating solids and liquids, remain upright for 30 minutes after PO intake as a reflux precaution, oral care 3-5x daily to reduce risk for complications from aspiration
5. GI consult to assess pharyngoesophageal sphincter
6. Dietitian consult to ensure adequate nutrition/hydration on modified diet
7. Continued dysphagia tx at the acute care level for instruction in compensatory strategies and if/when appropriate dysphagia rehabilitation.
--- NOTE | 2023-03-28 16:50 | CON.ID ---
Consultation
-
Date/Time Consultation Requested: 03/28/2023 1031
Date/Time Consultation Performed: 03/28/2023 1455
Requesting Provider: Dr. Valdovinos
Performing Provider: Dr. Bowser
Reason for Consultation: Pneumonia
Chief Complaint / Past History
History of Present Illness
Ed Senior is a 82-year-old man being evaluated at the request of Dr. Valdovinos in regards to pneumonia and neutropenia. History is obtained from chart review, along with patient interview. Additional history was obtained from the patient's daughter
who was at the bedside. The patient was diagnosed with large B-cell lymphoma approximate 3 weeks ago and received his first chemotherapy last week and . Because of debility he was staying with his daughter in the local area over the past
week. He presented to the hospital following the development of hypoxemia with a noted pulse ox of 84%, although he notes that when this was performed he did not feel especially short of breath.
Medical notes were reviewed, and the patient recently completed a 7-day course of cefdinir.
At the present time he denies any cough. He denies any current shortness of breath. He denies any fevers or chills. He notes generalized weakness.
Past History
Additional Past Medical History:
A-fib
HTN
Large B-cell lymphoma
Additional Past Surgical History:
Port-A-Cath placement (2 weeks ago
Knee surgery
Hernia repair
Allergy History:
No Known Allergies Allergy (Unverified 03/27/23 16:49)
Medications Reviewed: Yes
Current Antibiotics:
Zosyn
Vancomycin
Social History
Tobacco: Non-Smoker
Alcohol: None
Drug: None
Living: With Family
Employment: Retired
Family History
Family History: Not Pertinent
Review of Systems
Vital Signs
Temp Pulse Resp BP Pulse Ox
97.9 F 69 17 144/64 94
03/28/23 15:00 03/28/23 15:00 03/28/23 15:00 03/28/23 15:00 03/28/23 15:00
Physical Exam
Physical Exam
Constitutional: No Acute Distress, Comfortable, Chronically Ill, Non-toxic and Cachetic (Mild)
Head: Normocephalic
Eyes: No Conjunctival Hemorrhage and Sclera Anicteric
Oral: No Thrush and No Ulcers
Cardiovascular: Regular Rate and S1/S2; Negative S3/S4
Pulmonary: Rales, Coarse and Non Labored; Negative Wheezes or Rhonchi
Gastrointestinal: Soft, Non Tender, Non Distended and Normal Bowel Sounds
Extremities: Edema; Negative Cyanosis or Erythema
Skin: Warm and Dry; Negative Rash or Jaundice
Neurological: Awake and Alert
Psychological: Calm
Lab / Diagnostic Study Results
03/28/23 05:57
03/28/23 04:32
Total Counted 100 03/27/23 17:12
Abs Neuts (Manual) 1.4 10^3/uL (1.4-6.5) 03/27/23 17:12
Segmented Neutrophils 84 % (42-75) H 03/27/23 17:12
Band Neutrophils 8 % (0-3) H 03/27/23 17:12
Lymphocytes (Manual) 6 % (20-51) L 03/27/23 17:12
Eosinophils (Manual) 1 % (0-6) 03/27/23 17:12
PT 18.7 Sec (11.4-14.6) H 03/27/23 17:12
INR 1.58 03/27/23 17:12
Lactic Acid Cancelled 03/27/23 21:00
Procalcitonin 1.75 ng/ml (0.0-0.25) H 03/27/23 19:46
Microbiology Results
Micro:
03/27/23 21:14 Nasal Screen MRSA (PCR) - Final
Nose MRSA not detected - performed by PCR methodology.
03/28/23 03:25 Legionella Urinary Antigen - Final
Urine Negative for Legionella pneumophila Serogroup 1 antigen.
A negative result does not rule out the possiblity of
Legionella infection due to other serogroups or species of
Legionella. Clinical correlation is recommended.
Streptococcus pneumoniae Antigen (M - Final
Negative for Streptococcus pneumoniae antigen.
A negative result does not exclude infection with
Streptococcus pneumoniae. Clinical correlation is
recommended.
03/27/23 19:14 Influenza Types A & B (RFEDA) - Final
Nasal Swab Negative for Influenza A & B, NAAT
Negative results must be combined with clinical observations
and patient history.
Nucleic Acid Amplification test (NAAT)performed on the
[employer] platform.
03/27/23 17:12 Blood Culture - Pending
Blood/Venous
03/27/23 17:12 Blood Culture - Pending
Blood/Venous
Imaging:
03/27/2023 CXR (2 view): Bilateral reticulonodular markings noted
Assessment / Plan
Reported hypoxemia with depressed pulse ox
- Currently on 4 L O2
Pulmonary infiltrates; not clear if fluid overload or pneumonia
- Currently without pulmonary symptomatology
Large B-cell lymphoma
-Status post first chemo
Leukopenia/neutropenia
Recommendations:
Continue with antibiotic coverage, although consolidate to cefepime 2 g IV every 12 hours.
Patient currently without sputum production. Check sputum culture if he develops a cough.
Monitor white count and temperature curve.
Follow CXR
[2023-03-28] MEDS: ZOSYN IV (16:57)
[2023-03-28] MEDS: XARELTO 15 MG PO (17:13)
[2023-03-28] MEDS: BICITRA 30 ML PO (17:13)
[2023-03-28] MEDS: MAXIPIME 2000 MG IV (17:13)
[2023-03-28] MEDS: STERILE WATER FOR INJECTION 10 ML IV (17:13)
[2023-03-28] MEDS: LIPITOR 20 MG PO (17:14)
[2023-03-28] MEDS: LASIX 40 MG IV (18:17)
[2023-03-28] MEDS: BETAPACE 40 MG PO (20:10)
[2023-03-28] MEDS: LIORESAL 2.5 MG PO (20:55)
[2023-03-28] MEDS: XALATAN OPHTHALMIC SOLUTION 1 DROP BOTH EYES (20:58)
[2023-03-29] VITALS (9 sets, daily range): BP systolic 130–160; BP diastolic 52–64; PULSE 73; O2SAT 94–95; BMI 22.3
[2023-03-29] MEDS: MAALOX PLUS 1 TABLET PO (04:22)
--- NOTE | 2023-03-29 04:26 | DOWNTIME ---
There was a [employer] Client Home Health Scheduler Downtime on 03/29/2023 from 0111 to 03/29/2023 at 0405. Downtime documentation of patient's care, including medication administrations, has been reconciled in the electronic record per guidelines. Refer to the
patient's paper chart under the miscellaneous tab to see printed paper medication records and downtime forms.
[2023-03-29 05:19] LABS: Absolute Lymphocytes 0.1 10^3/uL (1.2-3.4); Absolute Monocytes 0.1 10^3/uL (0.1-0.6); Hematocrit 22.9 % (39.0-52.0); Hemoglobin 7.7 g/dL (13.0-18.0); Mean Corp Hgb Conc. 33.6 g/dL (33.0-37.0); Mean Corpuscular Hgb 28.5 pg (27.0-31.0); Mean Corpuscular Volume 84.8 fL (80.0-94.0); Nucleated Red Blood Cells % 0 % (-); Platelet Count 71 10^3/uL (130-400); Red Cell Dist. Width 14.8 % (11.5-14.5)
[2023-03-29 05:30] LABS: White Blood Cell Count 0.2 10^3/uL (4.8-10.8)
[2023-03-29 05:50] LABS: ALT (SGPT) 43 U/L (0-50); AST (SGOT) 33 U/L (17-59); Albumin 2.1 g/dl (3.5-5.0); Alkaline Phosphatase 254 U/L (38-126); Blood Urea Nitrogen 55 mg/dl (9-20); Calcium 8.2 mg/dl (8.4-10.2); Carbon Dioxide 25 mmol/L (22-30); Chloride 111 mmol/L (98-107); Estimated Creatinine Clearance 49 ml/min; Glucose 115 mg/dl (70-99); Potassium 3.8 mmol/L (3.5-5.1); Sodium 138 mmol/L (135-145); Total Bilirubin 1.4 mg/dl (0.2-1.3); Total Protein 4.7 g/dl (6.3-8.2); eGFR > 60.00
--- NOTE | 2023-03-29 06:11 | PTCARENOTE ---
pts neutrophils came back at 0.0, pt moved to private room 432 (4 west), report called to GUILLERMINA Cohen.
--- NOTE | 2023-03-29 06:15 | PTCARENOTE ---
Patient arrived as a transferred from [facility]. Patient placed on neutropenic precautions. Skin intact, sacrum is red and blanchable. Call garvin within reach. Patient oriented to room/unit.
[2023-03-29] MEDS: MAXIPIME 2000 MG IV ×2 (06:20→18:30)
[2023-03-29] MEDS: STERILE WATER FOR INJECTION 10 ML IV ×2 (06:20→18:30)
--- NOTE | 2023-03-29 07:16 | W.PN.UPDATE ---
Update Note
Progress Note Update
late entry:
start of shift RN reporting intractable hiccoughs. Due to prolonged QT unable to give reglan or thorazine. Will try low dose baclofen.
--- NOTE | 2023-03-29 08:36 | W.PN.ONC2 ---
Today's Communication / Plan
-
Continue antibiotic therapy and supportive care. Appreciate cardiology and ID input.
Spoke at length with patient's daughter. Patient will be transferring his care to [place] so that treatment can be given locally
Impression
Impression
Pulmonary infiltrates w hypoxia
DLBCL, s/p cycle #1 'half-dose' mini-RCHOP + GCSF, given early/mid Mar 2023
hospital admission ([facility]) last week for hypoxia, treated for PNA and CHF
afib on Xarelto
pancytopenia, from chemo
h/o PVera, previously treated w/ Hydrea
Plan
Plan
Continue broad-spectrum cefepime for neutropenic fever with possible pneumonia.
Records requested from [facility]. Will reach out to Dr. Christian as well.
Patient was treated with G-CSF so no role for additional growth factor while inpatient.
Hemoglobin has improved following blood transfusion. It is currently adequate = 7.7.
Spoke with daughter Lilian who is a speech pathologist at [employer] but lives in [place]. Patient wishes to transfer his care to [place] so that he can live in [place] while he is on active treatment and then move back to [place] once
treatment has completed.
Subjective/Objective
Chief Complaint
ACS Heme Onc
Subjective
Doing relatively well. No fever. + hiccups last night.
Vital Signs:
Vital Signs
Temp Pulse Resp BP Pulse Ox
97.8 F 69 18 130/54 95
03/29/23 07:35 03/29/23 07:35 03/29/23 07:35 03/29/23 07:35 03/29/23 07:35
Lab Results:
Laboratory Data
WBC 0.2 10^3/uL (4.8-10.8) L* 03/29/23 04:42
Hgb 7.7 g/dL (13.0-18.0) L 03/29/23 04:42
Plt Count 71 10^3/uL (130-400) L 03/29/23 04:42
PT 18.7 Sec (11.4-14.6) H 03/27/23 17:12
INR 1.58 03/27/23 17:12
eGFR > 60.00 03/29/23 04:42
Physical Exam
HEENT: No Jaundice
Cardiology: S1, S2 and Irregular rate/rhythm
Pulmonary: Clear
GI: Soft
Extremities: No C/C/E
--- NOTE | 2023-03-29 08:45 | VNURNOTE ---
[facility] liason spoke with patient's daughter Larissa. She and patient are agreeable to resume [facility] when patient returns home. Will watch if home 02 needs. Per daughter unclear about chemo plan at this time. Daughter confirmed that the patient will
be staying with her in [place]. Referral placed in [facility]. [facility] Intake dept aware.
[2023-03-29] MEDS: NORVASC PO (09:34)
[2023-03-29] MEDS: MIRALAX PO (09:39)
[2023-03-29] MEDS: BETAPACE 40 MG PO ×2 (09:40→20:08)
[2023-03-29] MEDS: COLACE 100 MG PO (09:42)
[2023-03-29] MEDS: FEOSOL 325 MG PO (09:43)
[2023-03-29] MEDS: VISBIOME 1 CAP PO (09:44)
[2023-03-29] MEDS: VITAMIN D3 (cholecalciferol) 25 MCG PO (09:46)
[2023-03-29] MEDS: VITAMIN B-12 1000 MCG PO (09:46)
--- NOTE | 2023-03-29 12:55 | PTOTSP ---
Speech-Language Pathology
Pt seen for dysphagia tx. Daughter and another family member present at bedside. Daughter had requested DEHYDROGENATION CONVERTER HELPER follow up this date for diet upgrade, as pt dislikes current diet and appetite is already poor. P.O. trials of softened regular solids and
thin liquids provided. Pt reported some globus sensation to solids, to which pt was not sensate to yesterday on VSE. Liquid wash resulted in coughing. He attempted to take 3 more sips of thin liquid via cup with same cough. Outside of this, no
other coughing noted. Question aspiration with liquid wash. Reviewed safe swallowing strategies as identified on VSE. Discussed risks of increased solids, but pt/daughter would like to trial increased diet to see if this improves appetite.
Recommend:
1. Trial upgrade to IDDSI 6 solids (soft/bite-sized) and thin liquids per discussion with pt/family
2. Medications - crushed and mixed in applesauce
3. Strategies: small single sips/bites, slow rate, multiple swallows (to clear pharynx), intermittent cough and re-swallow (to try and clear voice box/airway)
4. Precautions: avoid alternating solids and liquids, remain upright for 30 minutes after PO intake as a reflux precaution, oral care 3-5x daily to reduce risk for complications from aspiration
5. Daughter requesting GI consult
6. Continued dysphagia tx at the acute care level for instruction in compensatory strategies and if/when appropriate dysphagia rehabilitation.
--- NOTE | 2023-03-29 14:08 | CM ---
Chart reviewed and plan is to home with [facility].
Plan; Home with [facility]
--- NOTE | 2023-03-29 14:14 | W.PN.HOSP.TC ---
Addendum entered and electronically signed by Adolfo Valdovinos MD 03/29/23 14:24:
QTc prolonged on adx EKG
Repeat
Will check with ID for alternatives
Original Note:
Today's Communication/Plan
-
CW ABX
Add oral fluconazole
Lasix per cards
Assessment / Plan
Assessment / Plan
# Shortness of breath with hypoxia -Patient has bilateral reticular nodular markings. He apparently was treated for possible pneumonia and heart failure just over a week and another hospital. He went home without need of oxygen. Symptoms
reoccurred while at home. Discussing with oncologist he apparently had abnormal chest x-ray before he went on chemotherapy last week.
He is pancytopenic but not neutropenic. He is nontoxic. Afebrile. Unclear etiology for his bilateral reticulonodular shadowing noticed got broad differential including infectious but not acting like typical pneumonia. He does have elevated
procalcitonin. Continue with empirical antibiotics per ID. Patient with neutropenia.
COVID-19 negative, flu negative
With more rapid symptom onset and increasing lower extremity edema suspect heart failure is in the differential; rapid improvement in hypoxia also makes me think it is heart failure primarily. Continue with diuretics per cardiology.
Echocardiogram shows EF of 60 to 65% with mild to moderate MR, mild aortic stenosis. Repeat chest x-ray tomorrow to see further infiltrates resolution.
- Anemia likely chronic/pancytopenia likely from diffuse large B cell non-Hodgkin's lymphoma
-got chemo a week ago, next due to 3 weeks.
-Hemoglobin dropped to 6.6. He recently had transfusion a week ago. Denies rectal bleeding. He does have hemorrhoids-and the bleeding on and off.
-No active bleeding
-Transfuse 1 unit of PRBC and follow H&H.
-Oncology following
Oropharyngeal and possible esophageal candidiasis-patient has reflux symptoms, hiccups, some odynophagia. His oropharyngeal thrush. His absolute neutrophils are 0. Start on fluconazole treatment.
Lymphoma on chemotherapy
-Consult hematology
# Elevated liver enzymes
-AST 66, ALT 63, ALK 326
-ctm
-denied abdominal pain
-ctm
# Gout
-Allopurinol continued
# Essential hypertension
-Norvasc continued
#HLD
-statin continued
# History of paroxysmal A-fib
-Sotalol and Xarelto continued
-EKG with impression of sinus rhythm with first-degree heart block, prolonged QT
# DVT prophylaxis
-On Xarelto
# CODE STATUS
-Full code
Discussed with the daughter at bedside.
Anticipated Discharge: > 48 hours
Subjective/Interval History
-
Date of Service: March 29, 2023
Complaints of esophageal reflux, some odynophagia, hiccups. He always had stomach reflux but has been getting worse.
Breathing improved. Off of O2.
Objective Data
-
Labs:
Laboratory Results
03/29/23
04:42
WBC 0.2 L*
Hgb 7.7 L
Hct 22.9 L
Plt Count 71 L
Sodium 138
Potassium 3.8
Chloride 111 H
Carbon Dioxide 25
BUN 55 H
Creatinine 1.1
Glucose 115 H
Calcium 8.2 L
Total Bilirubin 1.4 H
AST 33
ALT 43
Alkaline Phosphatase 254 H
Vital Signs:
Vital Signs
Temp Pulse Resp BP Pulse Ox
97.6 F 68 18 133/54 93
03/29/23 11:26 03/29/23 11:26 03/29/23 11:26 03/29/23 11:26 03/29/23 11:26
I&O
03/28/23 03/29/23 03/30/23
06:59 06:59 06:59
Intake Total 720 / 720 1000 / 1000
Output Total 375 / 375 2600 / 2600
Balance 345 / 345 -1600 / -1600
Review of Systems
-
Constitutional: Denies Fever or Chills
EENT: Reports Sore Throat
Respiratory: Denies Cough or Trouble Breathing
Cardiac: Denies Chest Pain
Abdomen/GI: Reports Pain and GERD
Neuro: Denies Dizzy
Physical Exam
-
General: No Apparent Distress
HEENT: Moist Mucous Membranes and Other (extensive oropharyngeal thrush)
Respiratory: Crackles (crackles left > Rt base); Negative Wheezes
Cardiac: Regular Rhythm and S1/S2
GI: Soft
Neuro: AO x 3
Psych: Calm
Data Reviewed
-
Labs: Labs Reviewed by me
[2023-03-29] MEDS: FOLVITE 0.800000000000000044 MG PO (14:36)
[2023-03-29] MEDS: ZYLOPRIM 300 MG PO (14:36)
[2023-03-29] MEDS: FIRST-MOUTHWASH BLM SUSPENSION 5 ML PO (14:46)
[2023-03-29] MEDS: MYCELEX TROCHE 10 MG PO ×3 (15:51→22:33)
--- NOTE | 2023-03-29 17:31 | W.PN.ID1 ---
Date of Service
Date of Service: March 29, 2023
Today's Communication
Continue antibiotics.
Assessment / Plan
Reported hypoxemia with depressed pulse ox
- Currently on 4 L O2
Pulmonary infiltrates; not clear if fluid overload or pneumonia
- Currently without pulmonary symptomatology
Large B-cell lymphoma
-Status post first chemo
Leukopenia/neutropenia
Recommendations:
Continue with cefepime 2 g IV every 12 hours.
Patient currently without sputum production. Check sputum culture if he develops a cough.
Begin clotrimazole bhaskar for thrush.
Monitor white count and temperature curve.
Follow CXR
Given profound neutropenia, will discontinue probiotics as there is a risk of iatrogenic bacteremia from them.
����������������������������������������������������������
Chief Complaint
-: Other (Neutropenia)
Subjective / Review of Systems
Patient seen and examined. Reports mild odynophagia in the oropharynx.
Review of Systems: No Fever and No Chills
Vital Signs / Physical Exam
Vital Signs
Vital Signs
Temp Pulse Resp BP Pulse Ox
97.8 F 82 18 160/63 95
03/29/23 15:35 03/29/23 15:35 03/29/23 15:35 03/29/23 15:35 03/29/23 15:35
Physical Exam
Constitutional: No Acute Distress, Comfortable, Chronically Ill and Cachetic
Eyes: No Conjunctival Hemorrhage and Sclera Anicteric
Oropharyngeal: Thrush
Cardiovascular: S1/S2; Negative S3/S4
Pulmonary: Non Labored; Negative Wheezes or Rales
Gastrointestinal: Soft, Non Tender and Non Distended
Extremities: Edema; Negative Cyanosis or Erythema
Neurological: Awake and Alert
Psychological: Calm
Objective Data
Lab Data
Lab Results
03/29/23 04:42
03/29/23 04:42
PT 18.7 Sec (11.4-14.6) H 03/27/23 17:12
INR 1.58 03/27/23 17:12
Estimated Creat Clear 49 ml/min 03/29/23 04:42
Lactic Acid Cancelled 03/27/23 21:00
Total Bilirubin 1.4 mg/dl (0.2-1.3) H 03/29/23 04:42
AST 33 U/L (17-59) 03/29/23 04:42
ALT 43 U/L (0-50) 03/29/23 04:42
Alkaline Phosphatase 254 U/L (38-126) H 03/29/23 04:42
Most recent labs reviewed.
Micro Results:
03/27/23 17:12 Blood Culture - Preliminary
Blood/Venous No Growth in 48 hours- Final report to follow
03/27/23 17:12 Blood Culture - Preliminary
Blood/Venous No Growth in 48 hours- Final report to follow
03/27/23 21:14 Nasal Screen MRSA (PCR) - Final
Nose MRSA not detected - performed by PCR methodology.
03/28/23 03:25 Legionella Urinary Antigen - Final
Urine Negative for Legionella pneumophila Serogroup 1 antigen.
A negative result does not rule out the possiblity of
Legionella infection due to other serogroups or species of
Legionella. Clinical correlation is recommended.
Streptococcus pneumoniae Antigen (M - Final
Negative for Streptococcus pneumoniae antigen.
A negative result does not exclude infection with
Streptococcus pneumoniae. Clinical correlation is
recommended.
03/27/23 19:14 Influenza Types A & B (FREDA) - Final
Nasal Swab Negative for Influenza A & B, NAAT
Negative results must be combined with clinical observations
and patient history.
Nucleic Acid Amplification test (NAAT)performed on the
[employer] platform.
Imaging:
03/27/2023 CXR (2 view): Bilateral reticulonodular markings noted
[2023-03-29] MEDS: BICITRA 30 ML PO (18:30)
[2023-03-29] MEDS: XARELTO 15 MG PO (18:30)
[2023-03-29] MEDS: LIPITOR 20 MG PO (18:30)
--- NOTE | 2023-03-29 19:58 | W.PN.CARDCBS ---
Today's Communication / Plan
-
IV Lasix tomorrow morning
Impression / Plan
-
Primary Keyboard Teacher: Dr. Tramaine Rossi in [place]
Assessment:
-Hypoxia
-B/L PNA, concern for atypical bacteria
-elevated procalcitonin
-suspected component of acute CHF, unknown type
-recent admission to [facility] for PNA 03/2023
-Paroxysmal atrial fibrillation
-chronic sotalol therapy
-chronic xarelto therapy
-cardiac murmur on exam
-anemia/thrombocytopenia
-recent JACOBY/renal insufficiency
-diffuse large B cell non-Hodgkin's lymphoma, on chemotherapy
-elevated LFTs, improving
-gout
-HTN
-HLD
Nuclear stress test 07/06/2022: EF 83%, no evidence of transient cavity dilatation, images negative for exercise-induced ischemia
ECHO 02/20/23 at [facility]: EF 67.5%, minimal aortic stenosis with peak/mean gradients 18/9 mmHg
ECHO 03/28/23: EF preserved, mild cLVH, mild to mod MR, mild with peak/mean gradients 28/14mmHg
Plan:
Medically complex 82-year-old gentleman who presents with shortness of breath and hypoxic respiratory failure
-CXR with evidence of bilateral pneumonia possibly with a component of volume overload with elevated proBNP
-Responded well to IV Lasix yesterday. We discussed repeating a dose of IV Lasix and has agreed to a dose tomorrow morning
-Monitor renal function and electrolytes with diuresis
-Recent 2D echocardiogram with preserved EF with mild to moderate MR and mild
-ID following on antibiotics
-COVID-negative, flu negative
History of paroxysmal atrial fibrillation on sotalol and Xarelto in sinus rhythm
-Monitor serial EKGs /QT interval particularly in the setting of antibiotics/antifungals
-Telemetry monitoring
-Records requested from his outpatient epic ambulatory specialists
Multifactorial anemia status posttransfusion 1 unit with hemoglobin today 7.7, up from 6.6 yesterday.
Diffuse large B cell non-Hodgkin's lymphoma on chemotherapy with anemia and pancytopenia dose postchemotherapy approximately 1 week ago
-Oncology following
Progress Note - Keyboard Teacher
Subjective
Date of Service: March 29, 2023
Seen and examined. Patient remains short of breath on nasal cannula O2 but states he is feeling slightly better. No chest pain or pressure.
Objective
Labs:
03/29/23 04:42
03/29/23 04:42
Labs
Hgb 7.7 g/dL (13.0-18.0) L 03/29/23 04:42
Hct 22.9 % (39.0-52.0) L 03/29/23 04:42
Plt Count 71 10^3/uL (130-400) L 03/29/23 04:42
PT 18.7 Sec (11.4-14.6) H 03/27/23 17:12
INR 1.58 03/27/23 17:12
Sodium 138 mmol/L (135-145) 03/29/23 04:42
Potassium 3.8 mmol/L (3.5-5.1) 03/29/23 04:42
BUN 55 mg/dl (9-20) H 03/29/23 04:42
Creatinine 1.1 mg/dL (0.7-1.3) 03/29/23 04:42
Glucose 115 mg/dl (70-99) H 03/29/23 04:42
Troponins
03/27/23
17:23
Troponin I < 0.012
Vital Signs and I&O:
Vital Signs
Temp Pulse Resp BP Pulse Ox
98.2 F 76 18 139/52 93
03/29/23 19:30 03/29/23 19:30 03/29/23 19:30 03/29/23 19:30 03/29/23 19:30
Vital Signs
Temp Pulse Resp BP Pulse Ox
98.2 F 76 18 139/52 93
03/29/23 19:30 03/29/23 19:30 03/29/23 19:30 03/29/23 19:30 03/29/23 19:30
Intake & Output
03/27/23 03/28/23 03/29/23 03/30/23
06:59 06:59 06:59 06:59
Intake Total 720 / 720 1000 / 1000
Output Total 375 / 375 2600 / 2600
Balance 345 / 345 -1600 / -1600
Physical Exam
Physical Exam
General: Appears chronically ill. Nasal cannula O2. AAOx3
Heart: Regular, positive S1/S2, Negative S4, No murmur2/6 SM
Lungs: Bronchovesicular breath sounds with coarse rhonchi
Abd: Positive BS, NT/ND, neg rebound/rigidity/guarding
Ext: Trace pedal edema
Neuro: nonfocal
[2023-03-29] MEDS: XALATAN OPHTHALMIC SOLUTION 1 DROP BOTH EYES (22:33)
[2023-03-30] VITALS (9 sets, daily range): BP systolic 122–154; BP diastolic 52–59; BMI 22.2
[2023-03-30] MEDS: MAALOX PLUS 1 TABLET PO ×2 (01:54→09:52)
[2023-03-30 04:30] LABS: % Eosinophils 5.3 % (0-6); % Lymphocytes 52.6 % (20.5-51.1); % Monocytes 42.1 % (1.7-9.3); Absolute Lymphocytes 0.1 10^3/uL (1.2-3.4); Absolute Monocytes 0.1 10^3/uL (0.1-0.6); Hematocrit 21.2 % (39.0-52.0); Mean Corpuscular Hgb 28.6 pg (27.0-31.0); Mean Corpuscular Volume 86.5 fL (80.0-94.0); Mean Platelet Volume 11.9 fL (7.4-10.4); Nucleated Red Blood Cells % 0 % (-); Platelet Count 48 10^3/uL (130-400); Red Blood Cell Count 2.45 10^6/uL (4.70-6.10); Red Cell Dist. Width 14.6 % (11.5-14.5)
[2023-03-30 04:31] LABS: White Blood Cell Count 0.2 10^3/uL (4.8-10.8)
[2023-03-30 04:46] LABS: ALT (SGPT) 28 U/L (0-50); AST (SGOT) 19 U/L (17-59); Alkaline Phosphatase 203 U/L (38-126); Blood Urea Nitrogen 45 mg/dl (9-20); Calcium 8.2 mg/dl (8.4-10.2); Carbon Dioxide 30 mmol/L (22-30); Chloride 105 mmol/L (98-107); Estimated Creatinine Clearance 49 ml/min; Glucose 127 mg/dl (70-99); Potassium 3.5 mmol/L (3.5-5.1); Sodium 138 mmol/L (135-145); Total Bilirubin 1.5 mg/dl (0.2-1.3); Total Protein 4.8 g/dl (6.3-8.2); eGFR > 60.00
[2023-03-30] MEDS: MAXIPIME 2000 MG IV ×2 (06:11→20:31)
[2023-03-30] MEDS: LASIX 20 MG IV (06:12)
[2023-03-30] MEDS: STERILE WATER FOR INJECTION 10 ML IV ×2 (06:12→20:32)
[2023-03-30] MEDS: MYCELEX TROCHE 10 MG PO ×4 (09:49→21:00)
[2023-03-30] MEDS: BETAPACE 40 MG PO ×2 (09:56→20:59)
[2023-03-30] MEDS: FOLVITE 0.800000000000000044 MG PO (09:57)
[2023-03-30] MEDS: COLACE 100 MG PO (09:58)
[2023-03-30] MEDS: FEOSOL 325 MG PO (09:58)
[2023-03-30] MEDS: VITAMIN D3 (cholecalciferol) 25 MCG PO (09:58)
[2023-03-30] MEDS: NORVASC 5 MG PO (09:59)
[2023-03-30] MEDS: VITAMIN B-12 1000 MCG PO (09:59)
[2023-03-30] MEDS: ZYLOPRIM 300 MG PO (10:00)
[2023-03-30] MEDS: MIRALAX PO (10:04)
--- NOTE | 2023-03-30 10:34 | CM ---
Chart reviewed and plan is to home with daughter and [facility].
Plan; Home with daughter and [facility].
--- NOTE | 2023-03-30 11:37 | W.PN.ONC ---
Addendum entered and electronically signed by Bhargav Arzola DO 03/30/23 12:30:
Agree with the impression and plan as outlined by NATHANIEL below. Patient interviewed and examined independently. Discussed disposition with son-in-law. No focal symptoms of infection. Continue transfusion support. Will transition to outpatient
treatment at [facility].
Original Note:
Today's Communication / Plan
-
03/30 WBC 0.2, ANC 0
Neutropenic precautions
Monitor for fevers, continue abx per ID
03/30 Hgb 7, Hct 21.2
Transfuse as needed to maintain Hgb >7
1 unit pRBCs ordered this AM
Continue supportive care
Patient was treated with G-CSF so no role for additional growth factor while inpatient
Medical records to be provided to [facility] by family this weekend
Office has been notified regarding arrangements for close follow up with [facility]
Impression
Impression
Pulmonary infiltrates w hypoxia
DLBCL, s/p cycle #1 'half-dose' mini-RCHOP + GCSF, given early/mid Mar 2023
hospital admission ([facility]) last week for hypoxia, treated for PNA and CHF
Afib on Xarelto
Chemo-induced pancytopenia
Neutropenia
h/o PVera, previously treated w/ Hydrea
Subjective/Objective
Subjective/Objective
patient is resting comfortably in bed. son at bedside. they are inquiring about home oxygen
Vital Signs:
Vital Signs
Temp Pulse Resp BP Pulse Ox
97.9 F 75 18 142/54 93
03/30/23 07:45 03/30/23 07:45 03/30/23 07:45 03/30/23 07:45 03/30/23 07:45
physical exam:
aaox3, pale, chronically ill appearing
HRR, lungs dim, +1 LE edema
Lab Results:
Laboratory Data
WBC 0.2 10^3/uL (4.8-10.8) L* 03/30/23 04:17
Hgb 7.0 g/dL (13.0-18.0) L 03/30/23 04:17
Plt Count 48 10^3/uL (130-400) L D 03/30/23 04:17
PT 18.7 Sec (11.4-14.6) H 03/27/23 17:12
INR 1.58 03/27/23 17:12
eGFR > 60.00 03/30/23 04:17
[2023-03-30] MEDS: FIRST-MOUTHWASH BLM SUSPENSION 5 ML PO (12:55)
--- NOTE | 2023-03-30 13:43 | W.PN.HOSP.TC ---
Today's Communication/Plan
-
CXR
CW diuresis per cards
CW ABX
Add PPI and Baclofen
Assessment / Plan
Assessment / Plan
# Shortness of breath with hypoxia -Patient has bilateral reticular nodular markings. He apparently was treated for possible pneumonia and heart failure just over a week and another hospital. He went home without need of oxygen. Symptoms
reoccurred while at home. Discussing with oncologist he apparently had abnormal chest x-ray before he went on chemotherapy last week.
He is pancytopenic . He is nontoxic. Afebrile. Unclear etiology for his bilateral reticulonodular shadowing noticed got broad differential including infectious but not acting like typical pneumonia. He does have elevated procalcitonin.
Continue with empirical antibiotics per ID. Patient with neutropenia precautions.
COVID-19 negative, flu negative
With more rapid symptom onset and increasing lower extremity edema suspect heart failure is in the differential; rapid improvement in hypoxia also makes me think it is heart failure primarily. Continue with diuretics per cardiology.
Echocardiogram shows EF of 60 to 65% with mild to moderate MR, mild aortic stenosis. Repeat chest x-ray to see further infiltrates resolution.
- Anemia likely chronic/pancytopenia likely from diffuse large B cell non-Hodgkin's lymphoma
-got chemo a week ago, next due to 3 weeks.
-Hemoglobin dropped to 6.6. He recently had transfusion a week ago. Denies rectal bleeding. He does have hemorrhoids-and the bleeding on and off.
-No active bleeding
-Transfuse 1 unit of PRBC and follow H&H.
-Oncology following
Oropharyngeal and possible esophageal candidiasis-patient has reflux symptoms, hiccups, some odynophagia. His oropharyngeal thrush. No fluocanazole due to qtc issues -on clotrimazole troches.
Intractable hiccups -strart PPI and baclofen and if improved drop Baclofen
Lymphoma on chemotherapy
-onc following
# Elevated liver enzymes
-AST 66, ALT 63, ALK 326
-ctm
-denied abdominal pain
-ctm
# Gout
-Allopurinol continued
# Essential hypertension
-Norvasc continued
#HLD
-statin continued
# History of paroxysmal A-fib
-Sotalol and Xarelto continued
-EKG with impression of sinus rhythm with first-degree heart block, prolonged QT
# DVT prophylaxis
-On Xarelto
# CODE STATUS
-Full code
Anticipated Discharge: > 48 hours
Subjective/Interval History
-
Date of Service: March 30, 2023
Continues to complains of intermittent hiccups.
Sore mouth. Denies any odynophagia today. Denying any stomach reflux today.
No nausea vomiting.
Breathing is improved. Remains off oxygen.
Objective Data
-
Labs:
Laboratory Results
03/30/23
04:17
WBC 0.2 L*
Hgb 7.0 L
Hct 21.2 L
Plt Count 48 L D
Sodium 138
Potassium 3.5
Chloride 105
Carbon Dioxide 30
BUN 45 H
Creatinine 1.1
Glucose 127 H
Calcium 8.2 L
Total Bilirubin 1.5 H
AST 19
ALT 28
Alkaline Phosphatase 203 H
Vital Signs:
Vital Signs
Temp Pulse Resp BP Pulse Ox
99.5 F 71 18 154/59 93
03/30/23 11:46 03/30/23 11:59 03/30/23 11:59 03/30/23 11:59 03/30/23 07:45
I&O
03/29/23 03/30/23 03/31/23
06:59 06:59 06:59
Intake Total 1000 / 1000
Output Total 2600 / 2600 625 / 625
Balance -1600 / -1600 -625 / -625
Review of Systems
-
Constitutional: Denies Fever
Cardiac: Denies Chest Pain
Neuro: Denies Dizzy
Physical Exam
-
General: No Apparent Distress
HEENT: Moist Mucous Membranes and Other (oropharyngeal thrush )
Respiratory: Crackles (BL ) and Non Labored Respirations; Negative Wheezes or Accessory Resp Muscle Use
Cardiac: Regular Rhythm and S1/S2
Neuro: AO x 3
Psych: Calm
Data Reviewed
-
Labs: Labs Reviewed by me
--- NOTE | 2023-03-30 14:09 | W.PN.CARDCBS ---
Addendum entered and electronically signed by Tanner Alcala MD 03/30/23 15:21:
I saw and examined the patient.
The District Sales Coordinator's note was reviewed and I agree with the note.
Comment:
GEN: No distress, awake, Ox3
HEENT: supple, anicteric, mmm
LUNGS: CTA, no wheezes/rales
CV: Reg, S1/S2, 1/6 syst LSB, no gallop
ABD: soft, BS+, NT/ND
EXT: No edema
NEURO: Gross non-focal
SKIN: No rash
Plan:
Will continue to try to diurese for likely multifactorial hypoxia. Continue IV Lasix. Replete electrolytes. Creatinine 1.1 and stable. Potassium 3.5
Continue to follow on telemetry as he has had some nonsustained VT. Check EKG to follow QT interval on sotalol.
Remains pancytopenic.
Original Note:
Today's Communication / Plan
-
replete K. check mag. follow on tele
assess response to IV lasix 20mg x1 given this AM
repeat EKG to assess QTc
follow anemia - remains on xarelto at present
Impression / Plan
-
Primary Business Professor: Dr. Tramaine Rossi in [place]
Assessment:
-Hypoxia
-B/L PNA, concern for atypical bacteria
-elevated procalcitonin
-suspected component of acute CHF, unknown type
-recent admission to [facility] for PNA 03/2023
-Paroxysmal atrial fibrillation
-chronic sotalol therapy
-chronic xarelto therapy
-cardiac murmur on exam
-anemia/thrombocytopenia
-recent JACOBY/renal insufficiency
-diffuse large B cell non-Hodgkin's lymphoma, on chemotherapy
-elevated LFTs, improving
-gout
-HTN
-HLD
Nuclear stress test 07/06/2022: EF 83%, no evidence of transient cavity dilatation, images negative for exercise-induced ischemia
ECHO 02/20/23 at [facility]: EF 67.5%, minimal aortic stenosis with peak/mean gradients 18/9 mmHg
ECHO 03/28/23: EF preserved, mild cLVH, mild to mod MR, mild with peak/mean gradients 28/14mmHg
Plan:
-patient vomited last night and also with persistent hiccuping
-continue treatment of PNA per primary service
-was given IV lasix 40mg x1 03/28 and 20mg x1 03/30 AM. assess response and consider need for lasix dosing as OP. was not on diuretic prior to admission
-Recent 2D echocardiogram with preserved EF with mild to moderate MR and mild
-patient in SR with frequent PVCs and 1 12-beat and 1 10-beat run of NSVT. replete K, 3.5 on 03/30. check mag
-reassess QTc by EKG as on sotalol and abx/antifungal
-treatment of anemia per primary service. chronically on xarelto - ? reassess candidacy if hgb persistently dropping. hgb 7.0 on 03/30. oncology following
-patient recently staying with daughter in this area and would like to transition his care to [facility].
Progress Note - Business Professor
Subjective
Date of Service: March 30, 2023
vomited once last night, persistent hiccuping, poor appetite
Objective
Labs:
03/30/23 04:17
03/30/23 04:17
Labs
Hgb 7.0 g/dL (13.0-18.0) L 03/30/23 04:17
Hct 21.2 % (39.0-52.0) L 03/30/23 04:17
Plt Count 48 10^3/uL (130-400) L D 03/30/23 04:17
PT 18.7 Sec (11.4-14.6) H 03/27/23 17:12
INR 1.58 02/19/24 17:12
Sodium 138 mmol/L (135-145) 03/30/23 04:17
Potassium 3.5 mmol/L (3.5-5.1) 03/30/23 04:17
BUN 45 mg/dl (9-20) H 03/30/23 04:17
Creatinine 1.1 mg/dL (0.7-1.3) 03/30/23 04:17
Glucose 127 mg/dl (70-99) H 03/30/23 04:17
Troponins
03/27/23
17:23
Troponin I < 0.012
Vital Signs and I&O:
Vital Signs
Temp Pulse Resp BP Pulse Ox
99.5 F 71 18 154/59 93
03/30/23 11:46 03/30/23 11:59 03/30/23 11:59 03/30/23 11:59 03/30/23 07:45
Vital Signs
Temp Pulse Resp BP Pulse Ox
99.5 F 71 18 154/59 93
03/30/23 11:46 03/30/23 11:59 03/30/23 11:59 03/30/23 11:59 03/30/23 07:45
Intake & Output
03/28/23 03/29/23 03/30/23 03/31/23
07:59 07:59 07:59 07:59
Intake Total 720 / 720 1000 / 1000
Output Total 375 / 375 2600 / 2600 625 / 625
Balance 345 / 345 -1600 / -1600 -625 / -625
--- NOTE | 2023-03-30 15:00 | PTCARENOTE ---
1400 Noted on heart monitor 12 beat run of V-tach, pt was coughing, no chest pain. BP 137/57 pulse 71 resp 18. temp 98.7 pulse ox on room air 94%
DR. Alcala (cardiology) notified. 1430 Noted orders per Zuleima CEVALLOS,continue to monitor pt closely.
[2023-03-30 15:19] LABS: Magnesium 1.6 mg/dl (1.6-2.3)
--- NOTE | 2023-03-30 15:55 | W.PN.ID1 ---
Date of Service
Date of Service: March 30, 2023
Today's Communication
Continue abx.
Assessment / Plan
Reported hypoxemia with depressed pulse ox
- Currently on 4 L O2
Pulmonary infiltrates; not clear if fluid overload or pneumonia
- Currently without pulmonary symptomatology
Large B-cell lymphoma
-Status post first chemo
Leukopenia/neutropenia
Recommendations:
Continue with cefepime 2 g IV every 12 hours.
Continue clotrimazole bhaskar for thrush. Given ongoing oropharyngeal candidiasis and profound neutropenia, begin micafungin
Monitor white count and temperature curve.
Follow CXR
����������������������������������������������������������
Chief Complaint
-: Other (Neutropenia)
Subjective / Review of Systems
Review of Systems: No Fever and No Chills
Vital Signs / Physical Exam
Vital Signs
Vital Signs
Temp Pulse Resp BP Pulse Ox
99.5 F 71 18 154/59 93
03/30/23 11:46 03/30/23 11:59 03/30/23 11:59 03/30/23 11:59 03/30/23 07:45
Physical Exam
Constitutional: Acutely Ill, Chronically Ill and Non-toxic
Eyes: No Conjunctival Hemorrhage
Oropharyngeal: Thrush
Cardiovascular: S1/S2; Negative S3/S4
Pulmonary: Non Labored
Gastrointestinal: Soft and Non Tender
Neurological: Awake and Alert
Psychological: Calm
Objective Data
Lab Data
Lab Results
03/30/23 04:17
03/30/23 04:17
PT 18.7 Sec (11.4-14.6) H 03/27/23 17:12
INR 1.58 03/27/23 17:12
Estimated Creat Clear 49 ml/min 03/30/23 04:17
Lactic Acid Cancelled 03/27/23 21:00
Total Bilirubin 1.5 mg/dl (0.2-1.3) H 03/30/23 04:17
AST 19 U/L (17-59) 03/30/23 04:17
ALT 28 U/L (0-50) 03/30/23 04:17
Alkaline Phosphatase 203 U/L (38-126) H 03/30/23 04:17
Most recent labs reviewed.
Micro Results:
03/27/23 17:12 Blood Culture - Preliminary
Blood/Venous No Growth in 48 hours- Final report to follow
03/27/23 17:12 Blood Culture - Preliminary
Blood/Venous No Growth in 48 hours- Final report to follow
03/27/23 21:14 Nasal Screen MRSA (PCR) - Final
Nose MRSA not detected - performed by PCR methodology.
03/28/23 03:25 Legionella Urinary Antigen - Final
Urine Negative for Legionella pneumophila Serogroup 1 antigen.
A negative result does not rule out the possiblity of
Legionella infection due to other serogroups or species of
Legionella. Clinical correlation is recommended.
Streptococcus pneumoniae Antigen (M - Final
Negative for Streptococcus pneumoniae antigen.
A negative result does not exclude infection with
Streptococcus pneumoniae. Clinical correlation is
recommended.
03/27/23 19:14 Influenza Types A & B (FREDA) - Final
Nasal Swab Negative for Influenza A & B, NAAT
Negative results must be combined with clinical observations
and patient history.
Nucleic Acid Amplification test (NAAT)performed on the
[employer] platform.
Imaging:
03/27/2023 CXR (2 view): Bilateral reticulonodular markings noted
[2023-03-30] MEDS: KLOR-CON 20 MEQ PO (16:13)
[2023-03-30] MEDS: TYLENOL 650 MG PO (16:13)
[2023-03-30] MEDS: PROTONIX 40 MG PO (16:14)
[2023-03-30] MEDS: LIORESAL 5 MG PO ×2 (17:02→21:00)
[2023-03-30] MEDS: LIPITOR 20 MG PO (17:02)
[2023-03-30] MEDS: XARELTO 15 MG PO (17:02)
[2023-03-30] MEDS: MYCELEX TROCHE PO (17:03)
--- NOTE | 2023-03-30 17:30 | PTCARENOTE ---
1700 Started one unit of PRBC's as ordered. VS stable, Checked with second RN per protocol. Stayed with pt first 15 minutes. Pt tolerated blood transfusion,continue to monitor pt closely.
[2023-03-30] MEDS: BICITRA 30 ML PO (18:37)
[2023-03-30] MEDS: MYCAMINE 105 MG IV (20:31)
[2023-03-30] MEDS: XALATAN OPHTHALMIC SOLUTION 1 DROP BOTH EYES (21:04)
[2023-03-31] VITALS (7 sets, daily range): BP systolic 109–152; BP diastolic 52–60; PULSE 71; O2SAT 96; BMI 22.1
[2023-03-31] MEDS: MAXIPIME 2000 MG IV ×2 (05:23→16:45)
[2023-03-31] MEDS: STERILE WATER FOR INJECTION 10 ML IV ×2 (05:24→16:45)
[2023-03-31 06:08] LABS: % Eosinophils 5.6 % (0-6); % Lymphocytes 38.9 % (20.5-51.1); % Monocytes 22.2 % (1.7-9.3); % Neutrophils 33.3 % (42.2-75.2); Absolute Lymphocytes 0.1 10^3/uL (1.2-3.4); Absolute Monocytes 0.1 10^3/uL (0.1-0.6); Hematocrit 24.7 % (39.0-52.0); Hemoglobin 8.3 g/dL (13.0-18.0); Mean Corp Hgb Conc. 33.6 g/dL (33.0-37.0); Mean Corpuscular Hgb 27.9 pg (27.0-31.0); Mean Corpuscular Volume 83.2 fL (80.0-94.0); Mean Platelet Volume 10.9 fL (7.4-10.4); Nucleated Red Blood Cells % 0 % (-); Platelet Count 43 10^3/uL (130-400); Red Blood Cell Count 2.97 10^6/uL (4.70-6.10); Red Cell Dist. Width 15.5 % (11.5-14.5)
[2023-03-31 06:32] LABS: White Blood Cell Count 0.4 10^3/uL (4.8-10.8)
[2023-03-31 06:39] LABS: ALT (SGPT) 21 U/L (0-50); AST (SGOT) 17 U/L (17-59); Albumin 1.8 g/dl (3.5-5.0); Alkaline Phosphatase 209 U/L (38-126); Blood Urea Nitrogen 38 mg/dl (9-20); Calcium 7.8 mg/dl (8.4-10.2); Carbon Dioxide 32 mmol/L (22-30); Chloride 103 mmol/L (98-107); Estimated Creatinine Clearance 59 ml/min; Glucose 115 mg/dl (70-99); Potassium 3.5 mmol/L (3.5-5.1); Sodium 137 mmol/L (135-145); Total Protein 4.6 g/dl (6.3-8.2); eGFR > 60.00
[2023-03-31 08:14] LABS: Absolute Neutrophils 0.1 10^3/uL (1.4-6.5)
[2023-03-31] MEDS: BETAPACE 40 MG PO ×2 (09:06→20:15)
[2023-03-31] MEDS: FEOSOL 325 MG PO (09:07)
[2023-03-31] MEDS: COLACE 100 MG PO (09:07)
[2023-03-31] MEDS: FOLVITE 0.800000000000000044 MG PO (09:07)
[2023-03-31] MEDS: MIRALAX 17 GRAMS PO (09:08)
[2023-03-31] MEDS: NORVASC 5 MG PO (09:08)
[2023-03-31] MEDS: MYCELEX TROCHE 10 MG PO ×2 (09:08→11:50)
[2023-03-31] MEDS: LIORESAL 5 MG PO (09:08)
[2023-03-31] MEDS: VITAMIN B-12 1000 MCG PO (09:09)
[2023-03-31] MEDS: ZYLOPRIM 300 MG PO (09:09)
[2023-03-31] MEDS: PROTONIX 40 MG PO (09:09)
[2023-03-31] MEDS: VITAMIN D3 (cholecalciferol) 25 MCG PO (09:09)
--- NOTE | 2023-03-31 10:56 | W.PN.ONC ---
Addendum entered and electronically signed by Jerome Oden MD 03/31/23 15:17:
Hematology/ Oncology addendum:
Patient seen and evaluated - agree w/ TIRE REPAIRER note and plan as outlined
-DLBCL - s/p 1 cycle split dose R-CHOP w/ neulasta in [place] - w/ plans to transition care to [facility]
-cytopenias persist - afebrile
-continue to monitor CBC and transfuse prn
-admit w/ SOB - pneumonia - possible component of CHF
-cont antibiotics as per ID
-cont supportive care
Will continue to follow with you
Original Note:
Today's Communication / Plan
-
03/31 WBC 0.4, ANC 100
Neutropenic precautions
Monitor for fevers, continue abx per ID
03/31 Hgb 8.3, Hct 24.7
s/p 1unit PRBCs improved from 7
Transfuse as needed to maintain Hgb >7
Patient received GCS-F this month with first cycle of R-CHOP
Office has been notified regarding arrangements for close follow up with [facility]
Continue supportive care
Nausea management
Aspiration precautions
Impression
Impression
Pulmonary infiltrates w hypoxia
DLBCL, s/p cycle #1 'half-dose' mini-RCHOP + GCSF, given early/mid Mar 2023
hospital admission ([facility]) recently for hypoxia, treated for PNA and CHF
Afib on Xarelto
Chemo-induced pancytopenia
Neutropenia
h/o PVera, previously treated w/ Hydrea
Weakness
Vomiting
Subjective/Objective
Subjective/Objective
Patient is resting in bed. He states he had a horrible morning and that he vomited 'thick bile mucous'. he states he worked with physical therapy and he is very tired. denies pain.
Vital Signs:
Vital Signs
Temp Pulse Resp BP Pulse Ox
98.3 F 72 18 140/56 94
03/31/23 08:29 03/31/23 08:29 03/31/23 08:29 03/31/23 08:29 03/31/23 08:29
physical exam unchanged.
Lab Results:
Laboratory Data
WBC 0.4 10^3/uL (4.8-10.8) L* 03/31/23 05:32
Hgb 8.3 g/dL (13.0-18.0) L 03/31/23 05:32
Plt Count 43 10^3/uL (130-400) L 03/31/23 05:32
PT 18.7 Sec (11.4-14.6) H 03/27/23 17:12
INR 1.58 03/27/23 17:12
eGFR > 60.00 03/31/23 05:32
Orders
Orders
Orders From Last 24 Hours
03/30/23 11:56
* Blood Bank Products Urgent
03/30/23 12:20
Acetaminophen [Tylenol] 650 mg PO NOW STA
--- NOTE | 2023-03-31 12:15 | W.PN.ID1 ---
Date of Service
Date of Service: March 31, 2023
Today's Communication
Continue antibiotics.
Assessment / Plan
Hypoxemia; improved.
Pulmonary infiltrates; not clear if fluid overload or pneumonia
- Currently without pulmonary symptomatology
Oropharyngeal candidiasis
Large B-cell lymphoma
-Status post first chemo
Leukopenia/neutropenia
Recommendations:
Continue with cefepime 2 g IV every 12 hours.
Continue clotrimazole bhaskar & micafungin.
Monitor white count and temperature curve.
Follow CXR
����������������������������������������������������������
Chief Complaint
-: Other (Neutropenia; oropharyngeal candidiasis)
Subjective / Review of Systems
Review of Systems: No Fever, No Chills, Pharyngitis and Cough
Vital Signs / Physical Exam
Vital Signs
Vital Signs
Temp Pulse Resp BP Pulse Ox
98.3 F 72 18 140/56 94
03/31/23 08:29 03/31/23 08:29 03/31/23 08:29 03/31/23 08:29 03/31/23 08:50
Physical Exam
Constitutional: Comfortable, Chronically Ill and Non-toxic
Head: Normocephalic
Eyes: Pupils Equal, Pupils Round, No Conjunctival Hemorrhage and Sclera Anicteric
Oropharyngeal: Thrush (Slightly improved from yesterday's exam)
Cardiovascular: S1/S2; Negative S3/S4
Pulmonary: Non Labored
Gastrointestinal: Soft and Non Distended
Neurological: Awake and Alert
Psychological: Calm
Objective Data
Lab Data
Lab Results
03/31/23 05:32
03/31/23 05:32
PT 18.7 Sec (11.4-14.6) H 03/27/23 17:12
INR 1.58 03/27/23 17:12
Estimated Creat Clear 59 ml/min 03/31/23 05:32
Lactic Acid Cancelled 03/27/23 21:00
Total Bilirubin 2.0 mg/dl (0.2-1.3) H 03/31/23 05:32
AST 17 U/L (17-59) 03/31/23 05:32
ALT 21 U/L (0-50) 03/31/23 05:32
Alkaline Phosphatase 209 U/L (38-126) H 03/31/23 05:32
Most recent labs reviewed.
Micro Results:
03/27/23 17:12 Blood Culture - Preliminary
Blood/Venous No Growth in 72 hours- Final report to follow
03/27/23 17:12 Blood Culture - Preliminary
Blood/Venous No Growth in 72 hours- Final report to follow
03/27/23 21:14 Nasal Screen MRSA (PCR) - Final
Nose MRSA not detected - performed by PCR methodology.
03/28/23 03:25 Legionella Urinary Antigen - Final
Urine Negative for Legionella pneumophila Serogroup 1 antigen.
A negative result does not rule out the possiblity of
Legionella infection due to other serogroups or species of
Legionella. Clinical correlation is recommended.
Streptococcus pneumoniae Antigen (M - Final
Negative for Streptococcus pneumoniae antigen.
A negative result does not exclude infection with
Streptococcus pneumoniae. Clinical correlation is
recommended.
03/27/23 19:14 Influenza Types A & B (FREDA) - Final
Nasal Swab Negative for Influenza A & B, NAAT
Negative results must be combined with clinical observations
and patient history.
Nucleic Acid Amplification test (NAAT)performed on the
[employer] platform.
Imaging:
03/27/2023 CXR (2 view): Bilateral reticulonodular markings noted
--- NOTE | 2023-03-31 13:20 | W.PN.HOSP.TC ---
Addendum entered and electronically signed by Adolfo Valdovinos MD 03/31/23 15:38:
Stage 1 sacral pressure injury, POA- cw wound care
Pancytopenia sec to chemotherapy for Lymphoma
Original Note:
Today's Communication/Plan
-
cw abx
cw antifungal
cw lasix
dc baclofen
Assessment / Plan
Assessment / Plan
# Shortness of breath with hypoxia -Patient has bilateral reticular nodular markings. He apparently was treated for possible pneumonia and heart failure just over a week and another hospital. He went home without need of oxygen. Symptoms
reoccurred while at home. Discussing with oncologist he apparently had abnormal chest x-ray before he went on chemotherapy last week.
He is pancytopenic . He is nontoxic. Afebrile. Unclear etiology for his bilateral reticulonodular shadowing noticed got broad differential including infectious but not acting like typical pneumonia. He does have elevated procalcitonin.
Continue with empirical antibiotics per ID. Patient with neutropenia precautions.
COVID-19 negative, flu negative
With more rapid symptom onset and increasing lower extremity edema suspect heart failure is in the differential; rapid improvement in hypoxia also makes me think it is heart failure primarily. Continue with diuretics per cardiology.
Echocardiogram shows EF of 60 to 65% with mild to moderate MR, mild aortic stenosis. Repeat chest x-ray shows no change . I see that he is not on Lasix as recommended by cards - will start them today and follow wt .
- Anemia likely chronic/pancytopenia likely from diffuse large B cell non-Hodgkin's lymphoma
-got chemo a week ago, next due to 3 weeks.
-Hemoglobin dropped to 6.6. He recently had transfusion a week ago. Denies rectal bleeding. He does have hemorrhoids-and the bleeding on and off.
-No active bleeding
-Transfused 2 unit of PRBC and follow H&H.
-Oncology following
- ANC 100 today which is an improvement
Oropharyngeal and possible esophageal candidiasis-patient has reflux symptoms, hiccups, some odynophagia. His oropharyngeal thrush. No fluocanazole due to qtc issues -dc clotrimazole troches as he is on Micafungin now
Intractable hiccups -cw PPI ,dc baclofen as improved
Lymphoma on chemotherapy
-onc following
# Elevated liver enzymes
-AST 66, ALT 63, ALK 326
-ctm
-denied abdominal pain
-ctm
# Gout
-Allopurinol continued
# Essential hypertension
-Norvasc continued
#HLD
-statin continued
# History of paroxysmal A-fib
-Sotalol and Xarelto continued
-EKG with impression of sinus rhythm with first-degree heart block, prolonged QT
# DVT prophylaxis
-On Xarelto
# CODE STATUS
-Full code
Anticipated Discharge: 24 - 48 hours
Subjective/Interval History
-
Date of Service: March 31, 2023
Not much of sore throat today. No hiccups. He does notice some dysphagia with food but no odynophagia.
Breathing remains okay. No chest pain. No fevers.
Objective Data
-
Labs:
Laboratory Results
03/31/23
05:32
WBC 0.4 L*
Hgb 8.3 L
Hct 24.7 L
Plt Count 43 L
Sodium 137
Potassium 3.5
Chloride 103
Carbon Dioxide 32 H
BUN 38 H
Creatinine 0.9
Glucose 115 H
Calcium 7.8 L
Total Bilirubin 2.0 H
AST 17
ALT 21
Alkaline Phosphatase 209 H
Vital Signs:
Vital Signs
Temp Pulse Resp BP Pulse Ox
98.7 F 70 18 109/60 96
03/31/23 12:07 03/31/23 12:07 03/31/23 12:07 03/31/23 12:07 03/31/23 12:07
I&O
03/30/23 03/31/23 04/01/23
06:59 06:59 06:59
Intake Total 1630 / 1630
Output Total 625 / 625 2350 / 2350
Balance -625 / -625 -720 / -720
Review of Systems
-
Respiratory: Denies Trouble Breathing
Cardiac: Denies Chest Pain
Abdomen/GI: Denies Abdominal Pain or Nausea
Neuro: Denies Dizzy
Physical Exam
-
General: Comfortable
HEENT: Moist Mucous Membranes
Respiratory: Crackles (more focal in left base today) and Non Labored Respirations; Negative Wheezes or Accessory Resp Muscle Use
Cardiac: Regular Rhythm and S1/S2
GI: Soft and Nontender
Neuro: AO x 3
Data Reviewed
-
Labs: Labs Reviewed by me
[2023-03-31] MEDS: FIRST-MOUTHWASH BLM SUSPENSION 5 ML PO (13:36)
--- NOTE | 2023-03-31 13:40 | PTOTSP ---
ST Follow-Up
Pt continues to present with moderately-severe pharyngoesophageal dysphagia 2/2 unmanaged candidiasis.
Recommendations:
- Continue with soft bite sized solids and thin liquids, as tolerated.
- Magic mouthwash q4-6 hours -- swish and swallow.
- Meds via IV.
- WAD COMPRESSOR OPERATOR ADJUSTER to continue to follow closely.
[2023-03-31] MEDS: LASIX 40 MG IV (13:41)
--- NOTE | 2023-03-31 14:06 | CM ---
Home to daughters house with [facility].
Plan; To daughter house in [place] with [employer].
[2023-03-31] MEDS: MYCAMINE 105 MG IV (15:20)
--- NOTE | 2023-03-31 16:36 | W.PN.CARDCBS ---
Documented by User: Zuleima Whiteside PA-C 03/31/23 16:40
Today's Communication / Plan
-
continue diuresis
replete K/mag
follow QTc
follow up with DCA upon DC
Impression / Plan
-
Primary Design Editor: Dr. Tramaine Rossi in [place]
Assessment:
-Hypoxia
-B/L PNA, concern for atypical bacteria
-elevated procalcitonin
-suspected component of acute CHF, unknown type
-recent admission to [facility] for PNA 03/2023
-Paroxysmal atrial fibrillation
-chronic sotalol therapy
-chronic xarelto therapy
-cardiac murmur on exam
-anemia/thrombocytopenia
-recent JACOBY/renal insufficiency
-diffuse large B cell non-Hodgkin's lymphoma, on chemotherapy
-elevated LFTs, improving
-gout
-HTN
-HLD
Nuclear stress test 07/06/2022: EF 83%, no evidence of transient cavity dilatation, images negative for exercise-induced ischemia
ECHO 02/20/23 at [facility]: EF 67.5%, minimal aortic stenosis with peak/mean gradients 18/9 mmHg
ECHO 03/28/23: EF preserved, mild cLVH, mild to mod MR, mild with peak/mean gradients 28/14mmHg
Plan:
-he reports improvement in breathing from admission and reports frequent urination
-contiue IV lasix 40mg daily. was not on diuretic prior to admission. Cr stable
-in SR upon review of tele with 3 and 7 beat run of NSVT, patient asymptomatic. replete k and mag
-continue treatment of PNA per primary service
-QTc stable at 501ms on sotalol, abx, antifungal. follow
-treatment of anemia per primary service. chronically on xarelto - ? reassess candidacy if hgb persistently dropping. hgb up to 8.3 on 03/31. oncology following
-patient recently staying with daughter in this area and would like to transition his care to [facility].
Progress Note - Design Editor
Subjective
Date of Service: March 31, 2023
reports improvement in breathing and frequent urination.
Objective
Labs:
03/31/23 05:32
03/31/23 05:32
Labs
Hgb 8.3 g/dL (13.0-18.0) L 03/31/23 05:32
Hct 24.7 % (39.0-52.0) L 03/31/23 05:32
Plt Count 43 10^3/uL (130-400) L 03/31/23 05:32
PT 18.7 Sec (11.4-14.6) H 03/27/23 17:12
INR 1.58 03/27/23 17:12
Sodium 137 mmol/L (135-145) 03/31/23 05:32
Potassium 3.5 mmol/L (3.5-5.1) 03/31/23 05:32
BUN 38 mg/dl (9-20) H 03/31/23 05:32
Creatinine 0.9 mg/dL (0.7-1.3) 03/31/23 05:32
Glucose 115 mg/dl (70-99) H 03/31/23 05:32
Vital Signs and I&O:
Vital Signs
Temp Pulse Resp BP Pulse Ox
98.7 F 70 18 109/60 96
03/31/23 12:07 03/31/23 12:07 03/31/23 12:07 03/31/23 12:07 03/31/23 12:07
Vital Signs
Temp Pulse Resp BP Pulse Ox
98.7 F 70 18 109/60 96
03/31/23 12:07 03/31/23 12:07 03/31/23 12:07 03/31/23 12:07 03/31/23 12:07
Intake & Output
02/03/30/23 03/31/23 04/01/23
07:59 07:59 07:59 07:59
Intake Total 1000 / 1000 1630 / 1630
Output Total 2600 / 2600 625 / 625 2350 / 2350
Balance -1600 / -1600 -625 / -625 -720 / -720
Physical Exam
Physical Exam
GEN: No distress, awake, alert, oriented x3
HEENT: supple, anicteric, mmm, eomi
LUNGS: Few crackles B/L bases, no wheezes
CV: Reg, S1/S2, no murmur
ABD: soft, BS+, NT/ND
EXT: No cyanosis, clubbing. trace edema of B/L LE
NEURO: Gross non-focal
SKIN: Warm, pink, dry. No rash. R chest port

Documented by User: Lj Srivastava, DO 03/31/23 18:35
Today's Communication / Plan
-
continue diuresis
EKG in AM for QT monitoring
replete K/mag
follow QTc
follow up with DCA upon DC
Impression / Plan
-
I saw and examined the patient.
The [facility]'s note was reviewed and I agree with the note.
Comment:
Primary Design Editor: Dr. Tramaine Rossi in [place]
Assessment:
-Hypoxia
-B/L PNA, concern for atypical bacteria
-elevated procalcitonin
-suspected component of acute CHF, unknown type
-recent admission to [facility] for PNA 03/2023
-Paroxysmal atrial fibrillation
-chronic sotalol therapy
-chronic xarelto therapy
-cardiac murmur on exam
-anemia/thrombocytopenia
-recent JACOBY/renal insufficiency
-diffuse large B cell non-Hodgkin's lymphoma, on chemotherapy
-elevated LFTs, improving
-gout
-HTN
-HLD
Nuclear stress test 07/06/2022: EF 83%, no evidence of transient cavity dilatation, images negative for exercise-induced ischemia
ECHO 02/20/23 at [facility]: EF 67.5%, minimal aortic stenosis with peak/mean gradients 18/9 mmHg
ECHO 03/28/23: EF preserved, mild cLVH, mild to mod MR, mild with peak/mean gradients 28/14mmHg
Plan:
-he reports improvement in breathing from admission and reports frequent urination
-contiue IV lasix 40mg daily. was not on diuretic prior to admission. Cr stable
-in SR upon review of tele with 3 and 7 beat run of NSVT, patient asymptomatic. replete k and mag
-continue treatment of PNA per primary service
-QTc stable at 501ms on sotalol, abx, antifungal. follow-- Check ECG in AM for QT monitoring
-treatment of anemia per primary service. chronically on xarelto - ? reassess candidacy if hgb persistently dropping. hgb up to 8.3 on 03/31. oncology following
-patient recently staying with daughter in this area and would like to transition his care to [facility].
[2023-03-31] MEDS: KLOR-CON 40 MEQ PO (16:44)
[2023-03-31] MEDS: MAGNESIUM OXIDE 500 MG PO (16:45)
[2023-03-31] MEDS: XARELTO 15 MG PO (16:45)
[2023-03-31] MEDS: LIPITOR 20 MG PO (16:45)
[2023-03-31] MEDS: BICITRA 30 ML PO (16:45)
[2023-03-31] MEDS: TYLENOL 650 MG PO (17:39)
[2023-03-31] MEDS: XALATAN OPHTHALMIC SOLUTION 1 DROP BOTH EYES (22:19)
[2023-04-01] MEDS: FIRST-MOUTHWASH BLM SUSPENSION 5 ML PO (01:06)
[2023-04-01] MEDS: TYLENOL 650 MG PO (01:06)
[2023-04-01 03:00] VITALS: BP 123/47
[2023-04-01] MEDS: MAXIPIME 2000 MG IV ×2 (05:00→17:11)
[2023-04-01] MEDS: STERILE WATER FOR INJECTION 10 ML IV ×2 (05:00→17:11)
[2023-04-01] MEDS: ANESTHETIC LOZENGE 1 LOZENGE PO (05:03)
[2023-04-01 05:11] LABS: % Basophils 1.4 % (0-2); % Eosinophils 4.1 % (0-6); % Immature Granulocytes 2.7 % (0-0.5); % Monocytes 20.3 % (1.7-9.3); % Neutrophils 48.5 % (42.2-75.2); Absolute Lymphocytes 0.2 10^3/uL (1.2-3.4); Absolute Monocytes 0.2 10^3/uL (0.1-0.6); Hematocrit 23.1 % (39.0-52.0); Hemoglobin 7.7 g/dL (13.0-18.0); Mean Corp Hgb Conc. 33.3 g/dL (33.0-37.0); Mean Corpuscular Hgb 27.7 pg (27.0-31.0); Mean Corpuscular Volume 83.1 fL (80.0-94.0); Mean Platelet Volume 10.8 fL (7.4-10.4); Nucleated Red Blood Cells % 0 % (-); Platelet Count 41 10^3/uL (130-400); Red Blood Cell Count 2.78 10^6/uL (4.70-6.10); Red Cell Dist. Width 15.4 % (11.5-14.5)
[2023-04-01 05:31] LABS: White Blood Cell Count 0.7 10^3/uL (4.8-10.8)
[2023-04-01 06:00] VITALS: BMI 21.0
[2023-04-01 06:02] LABS: ALT (SGPT) 20 U/L (0-50); AST (SGOT) 19 U/L (17-59); Albumin 1.8 g/dl (3.5-5.0); Alkaline Phosphatase 236 U/L (38-126); Blood Urea Nitrogen 34 mg/dl (9-20); Calcium 7.3 mg/dl (8.4-10.2); Carbon Dioxide 33 mmol/L (22-30); Chloride 103 mmol/L (98-107); Estimated Creatinine Clearance 53 ml/min; Glucose 99 mg/dl (70-99); Magnesium 1.7 mg/dl (1.6-2.3); Potassium 3.2 mmol/L (3.5-5.1); Sodium 135 mmol/L (135-145); Total Bilirubin 1.4 mg/dl (0.2-1.3); Total Protein 4.4 g/dl (6.3-8.2); eGFR > 60.00
[2023-04-01 08:00] VITALS: BP 131/57
[2023-04-01] MEDS: FEOSOL 325 MG PO (08:22)
[2023-04-01] MEDS: FOLVITE 0.800000000000000044 MG PO (08:22)
[2023-04-01] MEDS: COLACE 100 MG PO (08:22)
[2023-04-01] MEDS: NORVASC 5 MG PO (08:22)
[2023-04-01] MEDS: VITAMIN B-12 1000 MCG PO (08:23)
[2023-04-01] MEDS: VITAMIN D3 (cholecalciferol) 25 MCG PO (08:23)
[2023-04-01] MEDS: ZYLOPRIM 300 MG PO (08:23)
[2023-04-01] MEDS: BETAPACE 40 MG PO ×2 (08:23→19:56)
[2023-04-01] MEDS: MIRALAX 17 GRAMS PO (08:23)
[2023-04-01] MEDS: PROTONIX 40 MG PO (08:23)
[2023-04-01] MEDS: LASIX 40 MG IV (08:24)
[2023-04-01] MEDS: FLUSH (NSS) 1 FLUSH IV (08:26)
[2023-04-01 09:01] LABS: Absolute Neutrophils 0.4 10^3/uL (1.4-6.5)
--- NOTE | 2023-04-01 09:07 | W.PN.HOSP.TC ---
Today's Communication/Plan
-
Decrease Lasix
Replete K
CW abx and antifungal
Hold Xarelto with thrombocytopenia
Assessment / Plan
Assessment / Plan
# Shortness of breath with hypoxia -Patient has bilateral reticular nodular markings. He apparently was treated for possible pneumonia and heart failure just over a week and another hospital. He went home without need of oxygen. Symptoms
reoccurred while at home. Discussing with oncologist he apparently had abnormal chest x-ray before he went on chemotherapy last week.
He is pancytopenic . He is nontoxic. Afebrile. Unclear etiology for his bilateral reticulonodular shadowing noticed got broad differential including infectious but not acting like typical pneumonia. He does have elevated procalcitonin.
Continue with empirical antibiotics per ID. Patient with neutropenia precautions.
COVID-19 negative, flu negative
With more rapid symptom onset and increasing lower extremity edema suspect heart failure is in the differential; rapid improvement in hypoxia also makes me think it is heart failure primarily. Echocardiogram shows EF of 60 to 65% with mild to
moderate MR, mild aortic stenosis. Repeat chest x-ray shows no change . Continue with diuretics per cardiology. Good improvement in weight-dropped 7 pounds. Will decrease the dose of Lasix.
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
-got chemo a week ago, next due to 3 weeks.
-Hemoglobin dropped to 6.6. He recently had transfusion a week ago. Denies rectal bleeding. He does have hemorrhoids-and the bleeding on and off.
-No active bleeding
-Transfused 2 unit of PRBC and follow H&H.
-Oncology following
- ANC 700 today which is an improvement
-Platelets around thousand today-hold anticoagulation
Oropharyngeal and possible esophageal candidiasis-patient has reflux symptoms, hiccups, some odynophagia. His oropharyngeal thrush. No fluocanazole due to qtc issues -dc clotrimazole troches as he is on Micafungin now. Improved oral thrush.
Continue with symptomatic treatment for sore mouth.
Intractable hiccups -cw PPI ,dc baclofen as improved
Hypokalemia-replete
Lymphoma on chemotherapy
-onc following
# Elevated liver enzymes
-AST 66, ALT 63, ALK 326
-ctm
-denied abdominal pain
-ctm
# Gout
-Allopurinol continued
# Essential hypertension
-Norvasc continued
#HLD
-statin continued
# History of paroxysmal A-fib
-Continue with sotalol; hold Xarelto due to thrombocytopenia
-EKG with impression of sinus rhythm with first-degree heart block, prolonged QT
# DVT prophylaxis
-On Xarelto
# CODE STATUS
-Full code
Anticipated Discharge: > 48 hours
Subjective/Interval History
-
Date of Service: April 01, 2023
Complains of sore mouth.
Urinating frequently because of Lasix.
Breathing is improved.
No fever or chills.
Denies any shortness of breath or chest pain.
Mild discomfort with swallowing but able to swallow without much dysphagia today.
Objective Data
-
Labs:
Laboratory Results
04/01/23
04:41
WBC 0.7 L*
Hgb 7.7 L
Hct 23.1 L
Plt Count 41 L
Sodium 135
Potassium 3.2 L
Chloride 103
Carbon Dioxide 33 H
BUN 34 H
Creatinine 1.0
Glucose 99
Calcium 7.3 L
Total Bilirubin 1.4 H
AST 19
ALT 20
Alkaline Phosphatase 236 H
Vital Signs:
Vital Signs
Temp Pulse Resp BP Pulse Ox
97.8 F 62 18 131/57 96
04/01/23 08:00 04/01/23 08:00 04/01/23 08:00 04/01/23 08:00 04/01/23 08:00
I&O
03/31/23 04/01/23 04/02/23
06:59 06:59 06:59
Intake Total 1630 / 1630 1065 / 1065
Output Total 2350 / 2350 3000 / 3000
Balance -720 / -720 -193 / -1934
Review of Systems
-
Abdomen/GI: Denies Abdominal Pain
Genitourinary: Denies Dysuria
Neuro: Denies Dizzy
Physical Exam
-
General: No Apparent Distress
HEENT: Moist Mucous Membranes and Other (improved thrush)
Respiratory: Clear to Auscultation and Non Labored Respirations; Negative Wheezes, Crackles (not hearing them today) or Accessory Resp Muscle Use
Cardiac: Regular Rhythm and S1/S2
Neuro: AO x 3
Psych: Calm
Data Reviewed
-
Labs: Labs Reviewed by me
[2023-04-01] MEDS: KCL ELIXIR 40 MEQ PO (09:47)
--- NOTE | 2023-04-01 11:35 | W.PN.ONC2 ---
Today's Communication / Plan
-
- continue abx, neutropenia precautions, CBC daily.
Impression
Impression
Pulmonary infiltrates w hypoxia
DLBCL, s/p cycle #1 'half-dose' mini-RCHOP + GCSF, given early/mid Mar 2023
hospital admission ([facility]) recently for hypoxia, treated for PNA and CHF
Afib on Xarelto
Chemo-induced pancytopenia
Neutropenia
h/o PVera, previously treated w/ Hydrea
Weakness
Vomiting
Plan
Plan
Continue broad-spectrum cefepime for neutropenic fever with possible pneumonia.
Records requested from [facility]. Will reach out to Dr. Christian as well.
Patient was treated with G-CSF so no role for additional growth factor while inpatient. continue neutropenic precautions. remains afebrile.
Hemoglobin has improved following blood transfusion. It is currently adequate = 7.7.
Subjective/Objective
Chief Complaint
DLBCL with tx induced pancytopenia
Subjective
pt with no new complaints today. continued to have pain in mouth. denies fevers, chills.
Vital Signs:
Vital Signs
Temp Pulse Resp BP Pulse Ox
97.8 F 62 18 131/57 96
04/01/23 08:00 04/01/23 08:00 04/01/23 08:00 04/01/23 08:00 04/01/23 08:00
Lab Results:
Laboratory Data
WBC 0.7 10^3/uL (4.8-10.8) L* 04/01/23 04:41
Hgb 7.7 g/dL (13.0-18.0) L 04/01/23 04:41
Plt Count 41 10^3/uL (130-400) L 04/01/23 04:41
PT 18.7 Sec (11.4-14.6) H 03/27/23 17:12
INR 1.58 03/27/23 17:12
eGFR > 60.00 04/01/23 04:41
Physical Exam
HEENT: Other (erythema with superificial ulceration on posterior pharynx, white plaque on tongue.); No Jaundice
Cardiology: Normal Sinus Rhythm
Pulmonary: Clear
GI: Soft; No Distended
Extremities: No Edema
Neuro: Non Focal
Review of Systems
Review of Systems
Constitutional: Reports Fatigue; Denies Fever
Head: Reports Sore Throat
Respiratory: Denies Dyspnea
Cardiovascular: Denies Chest Pain
Neurological: Denies Headache
[2023-04-01 12:00] VITALS: BP 132/54
--- NOTE | 2023-04-01 12:17 | W.PN.CARDCBS ---
Today's Communication / Plan
-
Weight is down with IV Lasix. Transition to Lasix 20 mg daily. Daughter expressed concern about daily Lasix. May consider Lasix 20 mg daily as needed pending weight gain as outpatient.
Patient was not on a diuretic prior to admission. Creatinine remains stable.
Remains sinus rhythm.
EKG reviewed from today April 01, 2023. QTc stable on sotalol.
Xarelto currently on hold given significant thrombocytopenia and anemia
Continue magnesium and potassium repletion as necessary as per primary service.
Cont tx of PNA as per primary service.
Daughter would like to transition care to [facility], likely Dr. Kirsten Mensah
Discussed with daughter at bedside.
Impression / Plan
-
.
Primary Brim Molder: Dr. Tramaine Rossi in [place]
Impression:
-Hypoxia
-B/L PNA, concern for atypical bacteria
-elevated procalcitonin
-suspected component of acute CHF, unknown type
-recent admission to [facility] for PNA 03/2023
-Paroxysmal atrial fibrillation
-chronic sotalol therapy
-chronic xarelto therapy
-Mild to moderate MR
-Mild aortic stenosis
-anemia/thrombocytopenia
-recent JACOBY/renal insufficiency
-diffuse large B cell non-Hodgkin's lymphoma, on chemotherapy
-elevated LFTs, improving
-gout
-HTN
-HLD
Nuclear stress test 07/06/2022: EF 83%, no evidence of transient cavity dilatation, images negative for exercise-induced ischemia
ECHO 02/20/23 at [facility]: EF 67.5%, minimal aortic stenosis with peak/mean gradients 18/9 mmHg
ECHO 03/28/23: EF preserved, mild cLVH, mild to mod MR, mild with peak/mean gradients 28/14mmHg
Plan:
Weight is down with IV Lasix. Transition to Lasix 20 mg daily. Daughter expressed concern about daily Lasix. May consider Lasix 20 mg daily as needed pending weight gain as outpatient.
Patient was not on a diuretic prior to admission. Creatinine remains stable.
Remains sinus rhythm.
EKG reviewed from today April 01, 2023. QTc stable on sotalol.
Xarelto currently on hold given significant thrombocytopenia and anemia
Continue magnesium and potassium repletion as necessary as per primary service.
Cont tx of PNA as per primary service.
Daughter would like to transition care to [facility], likely Dr. Kirsten Mensah
Discussed with daughter at bedside.
Progress Note - Brim Molder
Subjective
Date of Service: April 01, 2023
Pt seen and examined. No complaints. No chest pain or shortness of breath.
Objective
Labs:
04/01/23 04:41
04/01/23 04:41
Labs
Hgb 7.7 g/dL (13.0-18.0) L 04/01/23 04:41
Hct 23.1 % (39.0-52.0) L 04/01/23 04:41
Plt Count 41 10^3/uL (130-400) L 04/01/23 04:41
PT 18.7 Sec (11.4-14.6) H 03/27/23 17:12
INR 1.58 03/27/23 17:12
Sodium 135 mmol/L (135-145) 04/01/23 04:41
Potassium 3.2 mmol/L (3.5-5.1) L 04/01/23 04:41
BUN 34 mg/dl (9-20) H 04/01/23 04:41
Creatinine 1.0 mg/dL (0.7-1.3) 04/01/23 04:41
Glucose 99 mg/dl (70-99) 04/01/23 04:41
Vital Signs and I&O:
Vital Signs
Temp Pulse Resp BP Pulse Ox
97.9 F 71 18 132/54 98
04/01/23 12:00 04/01/23 12:00 04/01/23 12:00 04/01/23 12:00 04/01/23 12:00
Vital Signs
Temp Pulse Resp BP Pulse Ox
97.9 F 71 18 132/54 98
04/01/23 12:00 04/01/23 12:00 04/01/23 12:00 04/01/23 12:00 04/01/23 12:00
Intake & Output
03/30/23 03/31/23 04/01/23 04/02/23
06:59 06:59 06:59 06:59
Intake Total 1630 / 1630 1065 / 1065
Output Total 625 / 625 2350 / 2350 3000 / 3000
Balance -625 / -625 -720 / -720 -193 / -1934
Physical Exam
Physical Exam
General: No acute distress, AAOX3
Neck: Negative JVD
Heart: Regular, Negative S3 positive S1/S2, Negative S4, No murmur
Lungs: CTA b/l, negative wheezes/rales/rhonchi
Abd: Positive BS, NT/ND, neg rebound/rigidity/guarding
Ext: Negative cyanosis/clubbing/edema
Neuro: nonfocal
[2023-04-01 15:00] VITALS: BP 107/49
[2023-04-01] MEDS: MYCAMINE 105 MG IV (15:44)
[2023-04-01] MEDS: BICITRA 30 ML PO (17:10)
[2023-04-01] MEDS: LIPITOR 20 MG PO (17:10)
[2023-04-01 19:00] VITALS: BP 114/51
[2023-04-01] MEDS: XALATAN OPHTHALMIC SOLUTION 1 DROP BOTH EYES (19:57)
[2023-04-01 23:00] VITALS: BP 115/48
[2023-04-02 03:00] VITALS: BP 125/48
[2023-04-02] MEDS: MAXIPIME 2000 MG IV (05:42)
[2023-04-02] MEDS: STERILE WATER FOR INJECTION 10 ML IV (05:42)
[2023-04-02 06:00] VITALS: BMI 19.8
[2023-04-02 06:08] LABS: % Basophils 1.1 % (0-2); % Eosinophils 1.6 % (0-6); % Immature Granulocytes 9.2 % (0-0.5); % Monocytes 10.9 % (1.7-9.3); % Neutrophils 65.2 % (42.2-75.2); Absolute Immature Granulocytes 0.2 10^3/uL (0-0.05); Absolute Lymphocytes 0.2 10^3/uL (1.2-3.4); Absolute Monocytes 0.2 10^3/uL (0.1-0.6); Absolute Neutrophils 1.2 10^3/uL (1.4-6.5); Hematocrit 24.3 % (39.0-52.0); Hemoglobin 8.1 g/dL (13.0-18.0); Mean Corp Hgb Conc. 33.3 g/dL (33.0-37.0); Mean Corpuscular Hgb 27.4 pg (27.0-31.0); Mean Corpuscular Volume 82.1 fL (80.0-94.0); Mean Platelet Volume 11.6 fL (7.4-10.4); Nucleated Red Blood Cells % 0 % (-); Platelet Count 81 10^3/uL (130-400); Red Blood Cell Count 2.96 10^6/uL (4.70-6.10); Red Cell Dist. Width 15.4 % (11.5-14.5); White Blood Cell Count 1.8 10^3/uL (4.8-10.8)
[2023-04-02 06:37] LABS: Blood Urea Nitrogen 37 mg/dl (9-20); Calcium 7.7 mg/dl (8.4-10.2); Carbon Dioxide 32 mmol/L (22-30); Chloride 102 mmol/L (98-107); Estimated Creatinine Clearance 51 ml/min; Glucose 100 mg/dl (70-99); Potassium 3.7 mmol/L (3.5-5.1); Sodium 132 mmol/L (135-145); eGFR > 60.00
[2023-04-02 07:45] VITALS: BP 124/43
[2023-04-02] MEDS: COLACE 100 MG PO (08:54)
[2023-04-02] MEDS: PROTONIX 40 MG PO (08:54)
[2023-04-02] MEDS: ZYLOPRIM 300 MG PO (08:54)
[2023-04-02] MEDS: BETAPACE 40 MG PO ×2 (08:54→19:44)
[2023-04-02] MEDS: VITAMIN D3 (cholecalciferol) 25 MCG PO (08:54)
[2023-04-02] MEDS: NORVASC 5 MG PO (08:55)
[2023-04-02] MEDS: FEOSOL 325 MG PO (08:55)
[2023-04-02] MEDS: FOLVITE 0.800000000000000044 MG PO (08:55)
[2023-04-02] MEDS: LASIX 20 MG PO (08:55)
[2023-04-02] MEDS: VITAMIN B-12 1000 MCG PO (08:55)
[2023-04-02] MEDS: MIRALAX 17 GRAMS PO (08:56)
--- NOTE | 2023-04-02 09:16 | W.PN.HOSP.TC ---
Today's Communication/Plan
-
DC planning
Assessment / Plan
Assessment / Plan
# Shortness of breath with hypoxia -Patient has bilateral reticular nodular markings. He apparently was treated for possible pneumonia and heart failure just over a week at another hospital. He went home without need of oxygen. Symptoms
reoccurred while at home. Discussing with oncologist he apparently had abnormal chest x-ray before he went on chemotherapy last week.
He is pancytopenic . He is nontoxic. Afebrile. Unclear etiology for his bilateral reticulonodular shadowing , broad differential including infectious but not acting like typical pneumonia. He does have elevated procalcitonin. Continue with
empirical antibiotics per ID.
COVID-19 negative, flu negative
With more rapid symptom onset and increasing lower extremity edema suspect heart failure is in the differential; rapid improvement in hypoxia also makes me think it is heart failure primarily. Echocardiogram shows EF of 60 to 65% with mild to
moderate MR, mild aortic stenosis. Repeat chest x-ray shows no change . Continue with diuretics per cardiology. Good improvement in weight.cw Lasix per cards. Patient is off of oxygen.
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
- got chemo a week ago, next due to 3 weeks.
- Hemoglobin dropped to 6.6. He recently had transfusion a week ago. Denies rectal bleeding. He does have hemorrhoids-and the bleeding on and off.
- No active bleeding
- Transfused 2 unit of PRBC. H&H stable
- Oncology following
- Neutrophils improved to 1200
- Platelets improved . Resume AC.
Oropharyngeal and possible esophageal candidiasis-patient has reflux symptoms, hiccups, some odynophagia. His oropharyngeal thrush. No fluocanazole due to qtc issues -dc clotrimazole troches as he is on Micafungin now. Improved oral thrush.
Continue with symptomatic treatment for sore mouth.
Intractable hiccups -cw PPI ,dc baclofen as improved. Now resolved.
Lymphoma on chemotherapy
-onc following
# Elevated liver enzymes
-AST 66, ALT 63, ALK 326
-ctm
-denied abdominal pain
-ctm
# Gout
-Allopurinol continued
# Essential hypertension
-Norvasc continued
#HLD
-statin continued
# History of paroxysmal A-fib
-Continue with sotalol; hold Xarelto due to thrombocytopenia
-EKG with impression of sinus rhythm with first-degree heart block, prolonged QT
# DVT prophylaxis
-On Xarelto
# CODE STATUS
-Full code
DC home with services when ok from ID standpoint
Anticipated Discharge: Today
Subjective/Interval History
-
Date of Service: April 02, 2023
Today patient is feeling improved. His sore mouth is better. Eating better. Denies any shortness of breath. No fevers.
Objective Data
-
Labs:
Laboratory Results
04/02/23
05:22
WBC 1.8 L*
Hgb 8.1 L
Hct 24.3 L
Plt Count 81 L D
Sodium 132 L
Potassium 3.7
Chloride 102
Carbon Dioxide 32 H
BUN 37 H
Creatinine 1.0
Glucose 100 H
Calcium 7.7 L
Vital Signs:
Vital Signs
Temp Pulse Resp BP Pulse Ox
97.6 F 64 20 124/43 98
04/02/23 07:45 04/02/23 07:45 04/02/23 07:45 04/02/23 07:45 04/02/23 07:45
I&O
04/01/23 04/02/23 04/03/23
06:59 06:59 06:59
Intake Total 1065 / 1065 1760 / 1760
Output Total 3000 / 3000 1900 / 1900
Balance -1935 / -1935 -140 / -140
Review of Systems
-
Constitutional: Denies Fever or Chills
Respiratory: Denies Cough or Trouble Breathing
Cardiac: Denies Chest Pain
Abdomen/GI: Denies Abdominal Pain, Nausea or Vomiting
Neuro: Denies Dizzy
Physical Exam
-
General: No Apparent Distress
HEENT: Moist Mucous Membranes
Respiratory: Clear to Auscultation
Cardiac: Regular Rhythm and S1/S2
GI: Soft, Nontender, Nondistended and Normal Bowel Sounds
Neuro: AO x 3
Psych: Calm
Data Reviewed
-
Labs: Labs Reviewed by me
--- NOTE | 2023-04-02 12:13 | W.PN.CARDCBS ---
Today's Communication / Plan
-
He had chest pressure after walking the andrade today.
Check EKG and troponin. Symptoms are atypical.
Weight is down with diuresis.
Continue Lasix 20 mg daily as needed for wt gain of greater than 2 lbs in a day or 5 lbs in a week.
Daughter expressed concern about daily Lasix.�
Patient was not on a diuretic prior to admission.�
Creatinine remains stable.
Remains sinus rhythm. QTc stable on sotalol. Check EKG today.
Cont Xarelto
Daughter would like to transition care to [facility].
Impression / Plan
-
.
Primary Director Of Acquisitions: Dr. Tramaine Rossi in [place]
Impression:
-Hypoxia
-B/L PNA, concern for atypical bacteria
-elevated procalcitonin
-suspected component of acute CHF, unknown type
-recent admission to [facility] for PNA 03/2023
-Paroxysmal atrial fibrillation
-chronic sotalol therapy
-chronic xarelto therapy
-Mild to moderate MR
-Mild aortic stenosis
-anemia/thrombocytopenia
-recent JACOBY/renal insufficiency
-diffuse large B cell non-Hodgkin's lymphoma, on chemotherapy
-elevated LFTs, improving
-gout
-HTN
-HLD
Nuclear stress test 07/06/2022: EF 83%, no evidence of transient cavity dilatation, images negative for exercise-induced ischemia
ECHO 02/20/23 at [facility]: EF 67.5%, minimal aortic stenosis with peak/mean gradients 18/9 mmHg
ECHO 03/28/23: EF preserved, mild cLVH, mild to mod MR, mild with peak/mean gradients 28/14mmHg
Plan:
He had chest pressure after walking the andrade today.
Check EKG and troponin. Symptoms are atypical.
Weight is down with diuresis.
Continue Lasix 20 mg daily as needed for wt gain of greater than 2 lbs in a day or 5 lbs in a week.
Daughter expressed concern about daily Lasix.�
Patient was not on a diuretic prior to admission.�
Creatinine remains stable.
Remains sinus rhythm. QTc stable on sotalol. Check EKG today.
Cont Xarelto
Daughter would like to transition care to [facility].
Discussed with nursing.
Progress Note - Director Of Acquisitions
Subjective
Date of Service: April 02, 2023
Pt seen and examined. Episode of chest pressure with walking the andrade. No dyspnea
Objective
Labs:
04/02/23 05:22
04/02/23 05:22
Labs
Hgb 8.1 g/dL (13.0-18.0) L 04/02/23 05:22
Hct 24.3 % (39.0-52.0) L 04/02/23 05:22
Plt Count 81 10^3/uL (130-400) L D 04/02/23 05:22
PT 18.7 Sec (11.4-14.6) H 03/27/23 17:12
INR 1.58 03/27/23 17:12
Sodium 132 mmol/L (135-145) L 04/02/23 05:22
Potassium 3.7 mmol/L (3.5-5.1) 04/02/23 05:22
BUN 37 mg/dl (9-20) H 04/02/23 05:22
Creatinine 1.0 mg/dL (0.7-1.3) 04/02/23 05:22
Glucose 100 mg/dl (70-99) H 04/02/23 05:22
Vital Signs and I&O:
Vital Signs
Temp Pulse Resp BP Pulse Ox
97.6 F 64 20 124/43 98
04/02/23 07:45 04/02/23 07:45 04/02/23 07:45 04/02/23 07:45 04/02/23 07:45
Vital Signs
Temp Pulse Resp BP Pulse Ox
97.6 F 64 20 124/43 98
04/02/23 07:45 04/02/23 07:45 04/02/23 07:45 04/02/23 07:45 04/02/23 07:45
Intake & Output
03/31/23 04/01/23 04/02/23 04/03/23
06:59 06:59 06:59 06:59
Intake Total 1630 / 1630 1065 / 1065 1760 / 1760
Output Total 2350 / 2350 3000 / 3000 1900 / 1900
Balance -720 / -720 -1935 / -1935 -140 / -140
Physical Exam
Physical Exam
General: No acute distress, AAOX3
Neck: Negative JVD
Heart: Regular, Negative S3 positive S1/S2, Negative S4, No murmur
Lungs: CTA b/l, negative wheezes/rales/rhonchi
Abd: Positive BS, NT/ND, neg rebound/rigidity/guarding
Ext: Negative cyanosis/clubbing/edema
Neuro: nonfocal
[2023-04-02 13:47] LABS: Troponin I < 0.012 ng/ml
[2023-04-02] MEDS: MYCAMINE 105 MG IV (15:31)
[2023-04-02 15:50] VITALS: BP 127/50
--- NOTE | 2023-04-02 16:23 | W.PN.UPDATE ---
Update Note
Progress Note Update
chart reviewed
neutropenia resolving
has completed a week of IV cefepime - stopped
switch to clotrimazole trouch x7 more days
follow up with oncology
stable for dc from ID perspective
[2023-04-02] MEDS: BICITRA 30 ML PO (17:08)
[2023-04-02] MEDS: LIPITOR 20 MG PO (17:08)
[2023-04-02] MEDS: XARELTO 15 MG PO (17:09)
[2023-04-02] MEDS: MYCELEX TROCHE 10 MG PO ×2 (17:10→21:54)
[2023-04-02] MEDS: XALATAN OPHTHALMIC SOLUTION 1 DROP BOTH EYES (21:55)
[2023-04-02 23:52] VITALS: BP 125/53
[2023-04-03 03:35] VITALS: BP 131/52
[2023-04-03 05:17] LABS: % Basophils 1.2 % (0-2); % Eosinophils 1.6 % (0-6); % Immature Granulocytes 1.2 % (0-0.5); % Lymphocytes 9.3 % (20.5-51.1); % Monocytes 8.5 % (1.7-9.3); % Neutrophils 78.2 % (42.2-75.2); Absolute Lymphocytes 0.2 10^3/uL (1.2-3.4); Absolute Monocytes 0.2 10^3/uL (0.1-0.6); Absolute Neutrophils 1.9 10^3/uL (1.4-6.5); Hematocrit 24.4 % (39.0-52.0); Mean Corp Hgb Conc. 32.8 g/dL (33.0-37.0); Mean Corpuscular Volume 82.4 fL (80.0-94.0); Mean Platelet Volume 10.8 fL (7.4-10.4); Nucleated Red Blood Cells % 0 % (-); Platelet Count 112 10^3/uL (130-400); Red Blood Cell Count 2.96 10^6/uL (4.70-6.10); Red Cell Dist. Width 15.5 % (11.5-14.5); White Blood Cell Count 2.5 10^3/uL (4.8-10.8)
[2023-04-03 06:00] VITALS: BMI 19.6
[2023-04-03 07:00] VITALS: BP 127/53
[2023-04-03] MEDS: BETAPACE 40 MG PO (07:56)
[2023-04-03] MEDS: MYCELEX TROCHE 10 MG PO ×3 (07:57→16:21)
[2023-04-03] MEDS: LASIX 20 MG PO (07:57)
[2023-04-03] MEDS: MIRALAX 17 GRAMS PO (07:57)
[2023-04-03] MEDS: NORVASC 5 MG PO (07:57)
[2023-04-03] MEDS: COLACE 100 MG PO (07:57)
[2023-04-03] MEDS: FEOSOL 325 MG PO (07:57)
[2023-04-03] MEDS: FOLVITE 0.800000000000000044 MG PO (07:57)
[2023-04-03] MEDS: ZYLOPRIM 300 MG PO (07:58)
[2023-04-03] MEDS: VITAMIN B-12 1000 MCG PO (07:58)
[2023-04-03] MEDS: PROTONIX 40 MG PO (07:58)
[2023-04-03] MEDS: VITAMIN D3 (cholecalciferol) 25 MCG PO (07:58)
--- NOTE | 2023-04-03 08:52 | W.PN.HOSP.TC ---
Today's Communication/Plan
-
Continue current management. Discharge planning today.
Assessment / Plan
Assessment / Plan
Physical exam:
General: Well Developed, Well Nourished and No Apparent Distress
HEENT: Normocephalic, Atraumatic and Moist Mucous Membranes and thrush.
Respiratory: Clear to Auscultation; Negative Wheezes, Rales or Rhonchi
Cardiac: Regular Rhythm and S1/S2
GI: Soft, Nontender and Nondistended
Musculoskeletal: No Clubbing, No Cyanosis and No Edema
Neuro: Awake, Alert and Oriented
Psych: Calm
A/P:
# Shortness of breath with hypoxia -Patient has bilateral reticular nodular markings. He apparently was treated for possible pneumonia and heart failure just over a week at another hospital. He went home without need of oxygen. Symptoms
reoccurred while at home. Discussing with oncologist he apparently had abnormal chest x-ray before he went on chemotherapy last week.
He is pancytopenic . He is nontoxic. Afebrile. Unclear etiology for his bilateral reticulonodular shadowing , broad differential including infectious but not acting like typical pneumonia. He does have elevated procalcitonin. Continue with
empirical antibiotics per ID.
COVID-19 negative, flu negative
Discussed with son-in-law at bedside today on 04/03
Discussed with manager valuation Dr. Aakash Farley today on 04/03, recommended low-dose diuretics, Lasix 20 mg daily
With more rapid symptom onset and increasing lower extremity edema suspect heart failure is in the differential; rapid improvement in hypoxia also makes me think it is heart failure primarily. Echocardiogram shows EF of 60 to 65% with mild to
moderate MR, mild aortic stenosis. Repeat chest x-ray shows no change . Continue with diuretics per cardiology. Good improvement in weight.cw Lasix per cards. Patient is off of oxygen.
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
- got chemo a week ago, next due to 3 weeks.
- Hemoglobin dropped to 6.6. He recently had transfusion a week ago. Denies rectal bleeding. He does have hemorrhoids-and the bleeding on and off.
- No active bleeding
- Transfused 2 unit of PRBC. H&H stable
- Oncology following
- Neutrophils improved to 1200
- Platelets improved . Resume AC.
Oropharyngeal and possible esophageal candidiasis-patient has reflux symptoms, hiccups, some odynophagia. His oropharyngeal thrush. No fluocanazole due to qtc issues -dc clotrimazole troches as he is on Micafungin now. Improved oral thrush.
Continue with symptomatic treatment for sore mouth.
Intractable hiccups -cw PPI ,dc baclofen as improved. Now resolved.
Lymphoma on chemotherapy
-onc following
# Elevated liver enzymes
-AST 66, ALT 63, ALK 326
-ctm
-denied abdominal pain
-ctm
# Gout
-Allopurinol continued
# Essential hypertension
-Norvasc continued
#HLD
-statin continued
# History of paroxysmal A-fib
-Continue with sotalol; hold Xarelto due to thrombocytopenia
-EKG with impression of sinus rhythm with first-degree heart block, prolonged QT
# DVT prophylaxis
-On Xarelto
# CODE STATUS
-Full code
DC home with services today since ID cleared him last evening.
Anticipated Discharge: Today
Subjective/Interval History
-
Date of Service: April 03, 2023
No chest pain or shortness of breath or bleeding. Mild throat discomfort. No fever
Objective Data
-
Labs:
Laboratory Results
04/03/23
04:35
WBC 2.5 L
Hgb 8.0 L
Hct 24.4 L
Plt Count 112 L D
Vital Signs:
Vital Signs
Temp Pulse Resp BP Pulse Ox
97.5 F 63 18 127/53 96
04/03/23 07:00 04/03/23 07:57 04/03/23 07:00 04/03/23 07:57 04/03/23 07:00
I&O
04/02/23 04/03/23 04/04/23
06:59 06:59 06:59
Intake Total 1759 / 1759
Output Total 1899 1325 / 1325
Balance -140 / -140 745 / 745
Review of Systems
-
All other systems: Reviewed and negative
--- NOTE | 2023-04-03 11:35 | CM ---
Chart reviewed and plan is to home to daughters house with [facility].
Plan; Home to daughter's house with [facility].
--- NOTE | 2023-04-03 13:10 | W.DCSUMMARY ---
Discharge Summary
Discharge Data
Date of Admission: 03/27/23
Date of Discharge: 04/03/23
-
Pending Results: No
Hospital Course
Patient 82 years old male recently diagnosed with DLBCL and recent chemotherapy, gout, hypertension, hyperlipidemia, glaucoma, presented to the hospital with hypoxia. Patient had a recent hospitalization at another hospital and treated for heart
failure and pneumonia. This time he was also treated for heart failure and pneumonia. Cardiology and ID were consulted. He finished course of antibiotics of IV cefepime and was continued with clotrimazole for his oral candidiasis. ID has cleared
him for discharge. He also was diuresed, and echocardiogram on 03/28 showed EF of 60 to 65%, mild concentric left ventricular hypertrophy, no regional wall motion abnormalities, mild to moderate mitral regurgitation, mild aortic stenosis with no
prior study available for comparison. Cardiology discussed about the use of diuretics standing doses or as needed for increased weight but ultimately decided on low-dose of diuretic standing and reevaluate as outpatient. Oncology followed patient
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
and left pectoral muscle and biopsy was consistent with DLBCL and his echo pretreatment was EF 68 he underwent chemotherapy with R-mini CHOP on 03/22 and G-CSF 03/23. Oncology noticed his CBC was adequate close to discharge. Patient hypoxia improved
and he is back to his baseline. He will be discharged in stable condition today.
Discharge duration: 37 minutes
Discharge Plan
-
Patient Disposition: Home with Home Care
Discharge Diagnosis/Procedures: Hypoxia. Acute on chronic diastolic congestive heart failure. Pneumonia. Oropharyngeal candidiasis. Large B-cell lymphoma. Pancytopenia. Hyponatremia.
Condition: Good
Diet: Low Cholesterol
Activity: As tolerated
Driving Restrictions: As prior to admission
Blood Work: Please PCP to order CBC, BMP within 1 week.
Referrals:
Bhargav Arzola DO [Active] - in two to four weeks
Chad Posey DO [Family Provider] - in less than 1 week
Bettie Gonsalez PA-C [Specified Professional Personl] - 04/19/23 1:40 am (You have a cardiology follow with Bettie Gonsalez on April 18 at 1:40 pm in [address] [facility]. If you are unable to make this
appointment please call [phone] to reschedule)
Prescriptions:
New
clotrimazole 10 mg Rivera
10 mg PO 5/D 7 Days Qty: 35 0RF
furosemide 20 mg Tablet
20 mg PO DAILY 30 Days Qty: 30 0RF
Continued
Adriamycin
1 dose IV Q21D
latanoprost 0.005 % Drops
1 drp BOTH EYES HS
atorvastatin 20 mg Tablet
20 mg PO QPM
sotalol 80 mg Tablet
40 mg PO BID
prednisone 20 mg Tablet
100 mg PO DIRECTED
Rx Instructions:
03/27/2023, take 5 tablets for 4 days following chemotherapy treatment Q21D.
amlodipine 5 mg Tablet
5 mg PO DAILY
sodium citrate-citric acid 500-334 mg/5 mL Solution
30 ml PO QPM
docusate sodium [Stool Softener] 100 mg Capsule
100 mg PO DAILY
allopurinol 300 mg Tablet
300 mg PO DAILY
ondansetron 4 mg Tablet,Disintegrating
4 mg PO Q6H PRN (Reason: nausea/vomiting)
Acidophilus Ex Str (L. sporog) 35 million- 25 million cell tablet
1 tab PO DAILY
Xarelto 15 mg Tablet
15 mg PO DAILY@1700
Rituxan
1 dose IV Q21D
cholecalciferol (vitamin D3)
1 tab PO DAILY
cyanocobalamin (vitamin B-12)
1 tab PO DAILY
Patient Comments:
03/27/2023, sublingual tablet.
cyclophosphamide
1 dose IV Q21D
vincristine
1 dose IV Q21D
ferrous sulfate 325 mg (65 mg iron) Tablet
325 mg PO DAILY
folic acid 800 mcg Tablet
0.8 mg PO DAILY
Discharge Orders:
Discharge Patient (As Directed); Ordered 04/03/23
Ordered By: Fernando Grant
Discharge Date and Time
Discharge Date/Time: 04/03/23 16:43
== END 2023-04-03 16:43 | disposition home health service (06) | DRG 193 ==
LOC: 4 WEST ACU 20:06
PROVIDERS: Internal Medicine; Nurse Practitioner Family; Physician Assistant; Registered Nurse; ADMITTING PHYSICIAN Hospitalist; ATTENDING PHYSICIAN Hospitalist; CONSULT PHYSICIAN Internal Medicine Hematology & Oncology; CONSULT PHYSICIAN Internal Medicine Infectious Disease; CONSULT PHYSICIAN Nuclear Medicine Nuclear Cardiology; EMERGENCY PHYSICIAN Emergency Medicine; FAMILY PHYSICIAN Internal Medicine
DX: J18.9 Pneumonia, unspecified organism (principal); D61.810 Antineoplastic chemotherapy induced pancytopenia; I50.31 Acute diastolic (congestive) heart failure; D61.818 Other pancytopenia; C83.30 Diffuse large B-cell lymphoma, unspecified site; B37.0 Candidal stomatitis; I11.0 Hypertensive heart disease with heart failure; I48.0 Paroxysmal atrial fibrillation; L89.151 Pressure ulcer of sacral region, stage 1; D69.6 Thrombocytopenia, unspecified
CPT/HCPCS: 71046; 74230; 80048; 80053; 83605; 83735; 83880; 84145; 84484; 85014; 85018; 85025; 85027; 85610; 86850; 86900; 86901; 86920; 87040; 87070; 87449; 87502; 87641; 87811; 87899; 92526; 92610; 92611; 93005; 93306; 97163; 97166; 97530; 99285; P9016

== ENCOUNTER → 2023-04-05 14:15 | Outpatient (REF) | payer MEDICARE, OTHER, SELFPAY ==
[2023-04-05 19:20] LABS: % Basophils 1.1 % (0-2); % Eosinophils 0.6 % (0-6); % Immature Granulocytes 3.6 % (0-0.5); % Monocytes 13.1 % (1.7-9.3); % Neutrophils 71.6 % (42.2-75.2); Absolute Immature Granulocytes 0.1 10^3/uL (0-0.05); Absolute Lymphocytes 0.4 10^3/uL (1.2-3.4); Absolute Monocytes 0.5 10^3/uL (0.1-0.6); Absolute Neutrophils 2.6 10^3/uL (1.4-6.5); Hematocrit 25.8 % (39.0-52.0); Hemoglobin 8.4 g/dL (13.0-18.0); Mean Corp Hgb Conc. 32.6 g/dL (33.0-37.0); Mean Corpuscular Hgb 27.5 pg (27.0-31.0); Mean Corpuscular Volume 84.3 fL (80.0-94.0); Mean Platelet Volume 10.9 fL (7.4-10.4); Nucleated Red Blood Cells % 0 % (-); Platelet Count 234 10^3/uL (130-400); Red Blood Cell Count 3.06 10^6/uL (4.70-6.10); Red Cell Dist. Width 17.1 % (11.5-14.5); White Blood Cell Count 3.6 10^3/uL (4.8-10.8)
== END ==
LOC: CLAB 14:15
PROVIDERS: ATTENDING PHYSICIAN Internal Medicine
DX: D63.0 Anemia in neoplastic disease (principal); C85.10 Unspecified B-cell lymphoma, unspecified site; J18.9 Pneumonia, unspecified organism
CPT/HCPCS: 85025

== ENCOUNTER → 2023-04-28 12:07 | Outpatient (REF) | payer MEDICARE, OTHER, SELFPAY ==
[2023-04-28 12:19] LABS: Hematocrit 25.5 % (39.0-52.0); Hemoglobin 8.1 g/dL (13.0-18.0); Mean Corp Hgb Conc. 31.8 g/dL (33.0-37.0); Mean Corpuscular Hgb 29.8 pg (27.0-31.0); Mean Corpuscular Volume 93.8 fL (80.0-94.0); Mean Platelet Volume 10.6 fL (7.4-10.4); Platelet Count 325 10^3/uL (130-400); Red Blood Cell Count 2.72 10^6/uL (4.70-6.10); Red Cell Dist. Width 22.4 % (11.5-14.5); White Blood Cell Count 19.6 10^3/uL (4.8-10.8)
[2023-04-28 13:16] LABS: Absolute Neutrophils -Man Diff 16.8 10^3/uL (1.4-6.5); Anisocytosis 1+; Band Neutrophils 7 % (0-3); Eosinophils 2 % (0-6); Hypochromasia 1+; Lymphocytes 5 % (20-51); Metamyelocytes 2 % (-); Monocytes 5 % (2-9); Normal RBC Morphology No; Ovalocytes 1+; Platelets Checked Yes; Polychromasia 1+; Segmented Neutrophils 79 % (42-75)
[2023-04-28 13:17] LABS: Total Cells Counted 100
== END ==
LOC: OLAB 12:07
PROVIDERS: ATTENDING PHYSICIAN Internal Medicine Hematology & Oncology
DX: D47.3 Essential (hemorrhagic) thrombocythemia (principal); C83.38 Diffuse large B-cell lymphoma, lymph nodes of multiple sites
CPT/HCPCS: 85025

== ENCOUNTER → 2023-07-04 14:57 | Outpatient (REF) | payer MEDICARE, OTHER, SELFPAY ==
[2023-07-04 16:07] LABS: % Basophils 0.9 % (0-2); % Eosinophils 3.3 % (0-6); % Immature Granulocytes 1.3 % (0-0.5); % Lymphocytes 4.7 % (20.5-51.1); % Monocytes 9.5 % (1.7-9.3); % Neutrophils 80.3 % (42.2-75.2); Absolute Basophils 0.1 10^3/uL (0-0.2); Absolute Eosinophils 0.5 10^3/uL (0-0.7); Absolute Immature Granulocytes 0.2 10^3/uL (0-0.05); Absolute Lymphocytes 0.8 10^3/uL (1.2-3.4); Absolute Monocytes 1.5 10^3/uL (0.1-0.6); Absolute Neutrophils 12.9 10^3/uL (1.4-6.5); Hematocrit 32.9 % (39.0-52.0); Hemoglobin 11.5 g/dL (13.0-18.0); Mean Corpuscular Hgb 31.9 pg (27.0-31.0); Mean Corpuscular Volume 91.1 fL (80.0-94.0); Mean Platelet Volume 10.3 fL (7.4-10.4); Nucleated Red Blood Cells % 0 % (-); Platelet Count 334 10^3/uL (130-400); Red Blood Cell Count 3.61 10^6/uL (4.70-6.10); Red Cell Dist. Width 15.4 % (11.5-14.5)
[2023-07-04 16:16] LABS: ALT (SGPT) 19 U/L (0-50); AST (SGOT) 23 U/L (17-59); Alkaline Phosphatase 153 U/L (38-126); Blood Urea Nitrogen 26 mg/dl (9-20); Calcium 9.6 mg/dl (8.4-10.2); Carbon Dioxide 21 mmol/L (22-30); Chloride 103 mmol/L (98-107); Glucose 100 mg/dl (70-99); LDH 256 U/L (120-246); Potassium 4.3 mmol/L (3.5-5.1); Sodium 135 mmol/L (135-145); Total Bilirubin 0.6 mg/dl (0.2-1.3); Total Protein 6.7 g/dl (6.3-8.2); eGFR 54.51
[2023-07-04 16:33] LABS: Urine Albumin Trace (Neg - Trace); Urine Bilirubin Negative (Negative); Urine Character Clear (Clear); Urine Color Yellow; Urine Glucose Negative (Negative); Urine Ketone Negative (Negative); Urine Leukocyte Negative (Negative); Urine Nitrite Negative (Negative); Urine Occult Blood Negative (Negative); Urine Specific Gravity 1.025 (<1.030); Urine Urobilinogen Negative (Neg - 1+)
== END ==
LOC: REG 14:57
PROVIDERS: ATTENDING PHYSICIAN Nurse Practitioner Family
DX: C83.38 Diffuse large B-cell lymphoma, lymph nodes of multiple sites (principal); R39.9 Unspecified symptoms and signs involving the genitourinary system
CPT/HCPCS: 36415; 71046; 80053; 81003; 83615; 85025; 87086

== ENCOUNTER 2023-07-06 21:56 | Inpatient (IN) | payer MEDICARE, OTHER, SELFPAY ==
[2023-07-06 13:59] VITALS: BP 133/70
[2023-07-06 14:47] VITALS: BMI 21.7
--- NOTE | 2023-07-06 15:39 | ED.GENMED ---
History of Present Illness
General
Chief Complaint: Fever
Source: patient
Exam Limitations: none
Time Seen by Provider: 07/06/23 15:08
Nursing documentation reviewed up to this point in time: agreed with
Travel History
Have you had any contact with someone who has COVID-19?: No
Do you have any symptoms of coronavirus? Fever > 100 degrees, chills, cough, shortness of breath, sore throat, loss of taste or smell, muscle aches, or headache?: No
History of Present Illness
History of Present Illness:
83-year-old male past medical history of diffuse large B-cell lymphoma CAD hypertension hyperlipidemia glaucoma presents to the ER for evaluation of fatigue for the past 4 days and low-grade fever 99.6/99.8. Patient does feel achy patient complains
of fatigue and achiness with fever but when the fever resolves he is asymptomatic... He does not have a cough.
He does not have any urinary frequency urgency or dysuria no nausea vomiting diarrhea abdominal pain. Dr. Milligan his his oncologist and they did speak with him over the phone several days ago and he ordered outpatient blood work and chest x-ray
with urine.
Pt does feel Short of breath. Denies l/e swelling.
Patient is due for his last chemotherapy treatment on Monday.
Phy Exam
General Physical Exam
General Presentation: no apparent distress
General age: appears stated age
General Skin: warm and dry
General Habitus: elderly
General Mental: alert
General Hydration: appears well hydrated
Cardiovascular Exam
Cardiovascular Exam: no murmur and normal peripheral pulses
Pulmonary Exam
Pulmonary Exam: lungs clear, no respiratory distress and other (right upper chest with port in place no erythema )
Neurological Exam
Neurological Exam: alert and oriented x3
Musculoskeletal Exam
Musculoskeletal Exam: full ROM
Skin Exam
Skin Exam: normal color and warm/dry
Psychiatric Exam
Psychiatric Exam: normal mood/affect
Course
Orders/Labs/Results
Orders:
Orders
07/06/23 15:38
Electrocardiogram (*1) Urgent
Reason for Study: Other
Other Reason for Exam: sepsis
Cardiac Monitoring- Treatment ONCE
EKG- Treatment ONCE
07/06/23 16:05
Complete Blood Count/With Diff Urgent
Comprehensive Metabolic Panel Urgent
Lactic Acid Q4H
Comment: CANCEL 2nd LACTIC ACID IF 1st LACTIC ACID IS LESS THAN 2
Lyme Progressive Urgent
Comment: ADD ON
NT-proBNP Urgent
Comment: AD
Blood Culture Q30M
KEERTHI Source: Blood/Venous
Specimen Description:
Blood Culture Q30M
KEERTHI Source: Blood/Venous
Specimen Description:
07/06/23 16:20
Add On- LAB Urgent
Tests Added?: Pro-BNP
07/06/23 17:43
Chest [CR Chest - 2 Views ] Urgent
Comment:
Reason For Exam: sob
07/06/23 18:58
Add On- LAB Urgent
Tests Added?: lyme progressive
07/06/23 19:40
CT Chest With Iv Contrast Urgent
Comment:
Reason For Exam: fever
0.9% Sodium Chloride 500 ml [Nss] 500 ml IV BOLUS
07/06/23 19:47
UA Reflex to Culture [Urinalysis Reflex To Culture] Urgent
Date Specimen was Collected: 07/06/23
Time Specimen was Collected: 18:33
Blood Culture Urgent
KEERTHI Source: Blood/Venous
Specimen Description:
07/06/23 21:20
Cefepime HCl [Maxipime] 1,000 mg IV NOW STA
07/06/23 21:22
Vancomycin 1 Gram/200 ml [Vancocin] 1 gram in 200 ml IV NOW
Abnormal Lab Results
07/06/23
16:05
WBC 12.0 H 10^3/uL
(4.8-10.8)
RBC 3.28 L 10^6/uL
(4.70-6.10)
Hgb 10.3 L g/dL
(13.0-18.0)
Hct 30.4 L %
(39.0-52.0)
MCH 31.4 H pg
(27.0-31.0)
RDW 14.7 H %
(11.5-14.5)
Abs Immat Gran (auto) 0.1 H 10^3/uL
(0-0.05)
Absolute Neuts (auto) 9.3 H 10^3/uL
(1.4-6.5)
Absolute Lymphs (auto) 0.7 L 10^3/uL
(1.2-3.4)
Absolute Monos (auto) 1.4 H 10^3/uL
(0.1-0.6)
Immature Gran % 0.7 H %
(0-0.5)
Neutrophils % 77.2 H %
(42.2-75.2)
Lymphocytes % 5.7 L %
(20.5-51.1)
Monocytes % 11.9 H %
(1.7-9.3)
BUN 28 H mg/dl
(9-20)
Creatinine 1.4 H mg/dL
(0.7-1.3)
Glucose 105 H mg/dl
(70-99)
Alkaline Phosphatase 186 H U/L
(38-126)
07/06/23 16:05
07/06/23 16:05
Vital Signs
Initial and Last Documented VS:
Initial Vital Signs
Temp Pulse Resp BP Pulse Ox
97.7 F 71 18 133/70 97
07/06/23 13:59 07/06/23 13:59 07/06/23 13:59 07/06/23 13:59 07/06/23 13:59
Last Documented Vital Signs
Temp Pulse Resp BP Pulse Ox
97.7 F 69 18 158/57 94
07/06/23 13:59 07/06/23 17:57 07/06/23 17:57 07/06/23 20:28 07/06/23 20:30
MDM/Problems Addressed
Differential Diagnosis Includes:
Not limited to pneumonia anemia, UTI viral syndrome
MDM/Problems Addressed:
Patient is an 83-year-old male currently undergoing chemotherapy for diffuse large B-cell lymphoma presents for fatigue over the past 4 days with low-grade fevers as high as 99.6. Patient feels achy and fatigued with fever but when fever resolves
his symptoms resolved. Oncology was aware and ordered outpatient labs chest x-ray and urine on the , 2 days ago. Patient arrives to the awake alert no acute distress slight crackles at bases abdomen soft nontender. White count today is 12
however patient's white count 2 days ago was 16,000 hemoglobin and BUN/creatinine at baseline minimally elevated.
Patient is short of breath as well however not presently. He is not hypoxic. Will order BMP chest x-ray.
2115: Case reviewed with Dr. Watt of [facility]. CAT scan ordered shows pneumonia mort pronounced in the left upper lobe. DR Rodriguez aware will adm for iv antibx . Pt was hydrated for ct with iv contrast with slight
elevation in creatinine.
*Radiology
Radiology exam reviewed: radiology read reviewed
*Pulse Oximetry
Patient hypoxic: no
*EKG
Interpreted by ED Provider?: Yes
Interpretation: normal
Heart Rate: 67
Rate: normal
Rhythm: sinus
Ischemia: no ischemia
*Critical Care Note
Total Time (30-74mins, 75-104mins- exclusive of procedures): Not Applicable
Patient Management
Discussion with other providers: Stunt Driver (oncology dr Rodriguez )
ED Attending Note
-
Portions of this chart may have been created with voice recognition software.� Occasional wrong word or��sound alike� substitutions may have occurred due to the inherent limitations of voice recognition software.
Discharge Plan
Departure
Patient Disposition: Admit
Date of Disposition: 07/06/23
Time of Disposition: 21:26
Admit to: Telemetry
Admit to doctor: hospitalist
Presentation/result/management discussed w/ accepting MD/DO: Hospitalist
Condition: Fair
Covid-19: Not Applicable
Discharge Problem:
Pneumonia
Prescriptions:
No Action
Adriamycin
1 dose IV Q21D
latanoprost 0.005 % Drops
1 drp BOTH EYES HS
atorvastatin 20 mg Tablet
20 mg PO QPM
sotalol 80 mg Tablet
40 mg PO BID
prednisone 20 mg Tablet
100 mg PO DIRECTED
Rx Instructions:
03/27/2023, take 5 tablets for 4 days following chemotherapy treatment Q21D.
amlodipine 5 mg Tablet
5 mg PO DAILY
sodium citrate-citric acid 500-334 mg/5 mL Solution
30 ml PO QPM
docusate sodium [Stool Softener] 100 mg Capsule
100 mg PO DAILY
allopurinol 300 mg Tablet
300 mg PO DAILY
ondansetron 4 mg Tablet,Disintegrating
4 mg PO Q6H PRN (Reason: nausea/vomiting)
Acidophilus Ex Str (L. sporog) 35 million- 25 million cell tablet
1 tab PO DAILY
Xarelto 15 mg Tablet
15 mg PO DAILY@1700
Rituxan
1 dose IV Q21D
cholecalciferol (vitamin D3)
1 tab PO DAILY
cyanocobalamin (vitamin B-12)
1 tab PO DAILY
Patient Comments:
03/27/2023, sublingual tablet.
cyclophosphamide
1 dose IV Q21D
vincristine
1 dose IV Q21D
ferrous sulfate 325 mg (65 mg iron) Tablet
325 mg PO DAILY
folic acid 800 mcg Tablet
0.8 mg PO DAILY
clotrimazole 10 mg Rivera
10 mg PO 5/D 7 Days Qty: 35 0RF
furosemide 20 mg Tablet
20 mg PO DAILY 30 Days Qty: 30 0RF
Referrals:
UNKNOWN - PT DOES,NOT KNOW [Family Provider] -
Interventions
Interventions:
*Risk Screen - Suicide Last Done: 07/06/23 14:49
*General Assessment Last Done: 07/06/23 13:59
*Neglect/Abuse Screening Last Done: 07/06/23 14:49
*ED COVID-19 Vaccine History Last Done: 07/06/23 13:59
ED- Neurological Assessment Last Done: 07/06/23 14:49
ED-Skin Assessment Last Done: 07/06/23 14:49
Discharge Date and Time
Print Language: KISWAHILI
[2023-07-06 16:13] LABS: % Basophils 0.7 % (0-2); % Eosinophils 3.8 % (0-6); % Immature Granulocytes 0.7 % (0-0.5); % Lymphocytes 5.7 % (20.5-51.1); % Monocytes 11.9 % (1.7-9.3); % Neutrophils 77.2 % (42.2-75.2); Absolute Basophils 0.1 10^3/uL (0-0.2); Absolute Eosinophils 0.5 10^3/uL (0-0.7); Absolute Immature Granulocytes 0.1 10^3/uL (0-0.05); Absolute Lymphocytes 0.7 10^3/uL (1.2-3.4); Absolute Monocytes 1.4 10^3/uL (0.1-0.6); Absolute Neutrophils 9.3 10^3/uL (1.4-6.5); Hematocrit 30.4 % (39.0-52.0); Hemoglobin 10.3 g/dL (13.0-18.0); Mean Corp Hgb Conc. 33.9 g/dL (33.0-37.0); Mean Corpuscular Hgb 31.4 pg (27.0-31.0); Mean Corpuscular Volume 92.7 fL (80.0-94.0); Mean Platelet Volume 9.9 fL (7.4-10.4); Nucleated Red Blood Cells % 0 % (-); Platelet Count 341 10^3/uL (130-400); Red Blood Cell Count 3.28 10^6/uL (4.70-6.10); Red Cell Dist. Width 14.7 % (11.5-14.5)
[2023-07-06 16:28] LABS: Lactic Acid 0.8 mmol/L (0.7-2.0)
[2023-07-06 16:31] LABS: ALT (SGPT) 36 U/L (0-50); AST (SGOT) 39 U/L (17-59); Albumin 3.7 g/dl (3.5-5.0); Alkaline Phosphatase 186 U/L (38-126); Blood Urea Nitrogen 28 mg/dl (9-20); Calcium 9.2 mg/dl (8.4-10.2); Carbon Dioxide 23 mmol/L (22-30); Estimated Creatinine Clearance 38 ml/min; Glucose 105 mg/dl (70-99); Total Bilirubin 0.6 mg/dl (0.2-1.3); Total Protein 6.3 g/dl (6.3-8.2); eGFR 49.87
[2023-07-06 17:06] LABS: Chloride 105 mmol/L (98-107); Potassium 4.5 mmol/L (3.5-5.1); Sodium 135 mmol/L (135-145)
[2023-07-06 17:48] LABS: NT-proBNP 1330 pg/ml
[2023-07-06] MEDS: NSS 500 IV (19:53)
[2023-07-06 19:57] LABS: Urine Albumin Negative (Neg - Trace); Urine Bilirubin Negative (Negative); Urine Character Clear (Clear); Urine Color Yellow; Urine Glucose Negative (Negative); Urine Ketone Negative (Negative); Urine Leukocyte Negative (Negative); Urine Nitrite Negative (Negative); Urine Occult Blood Negative (Negative); Urine Specific Gravity 1.015 (<1.030); Urine Urobilinogen Negative (Neg - 1+)
--- NOTE | 2023-07-06 20:13 | VATNOTE ---
BLD CULTURES OBTAINED FROM [facility] PRT PER MD ORDER. MICRO NOTIFIED OF SAME.
[2023-07-06 20:28] VITALS: BP 158/57
[2023-07-06 21:00] VITALS: BP 142/50
--- NOTE | 2023-07-06 21:51 | HPS.HSE ---
Family Physician
-
Family Physician: NOT KNOW UNKNOWN - PT DOES
Chief Complaint
-
Fevers / chills
History of Present Illness
Patient is an 83y M with PMH significant for DLBCL on chemotherapy who presents to ED complaining of fevers and chills. Patient states that he started with feeling very cold and having the shakes on Monday. His temperature at home has been
intermittent in the high 99s. He takes Tylenol with improvement in the chills and then has profuse diaphoresis. He denies any other symptoms including chest pain, sore throat, cough, GI or symptoms. He does note that he felt somewhat short of
breath today after he 'ran up the steps'. He was last hospitalized here in March and was treated for CHF and pneumonia at that time.
He notes that his weight is down 4 lbs in the past few days. He has no ankle edema.
No known sick contacts.
His last chemo session was nearly three weeks ago (every 21 days and his next / last session is scheduled for Monday).
Medical History
Past Medical History
Past Medical History: Reports Other
Additional Past Medical History:
Diffuse large B cell non-Hodgkin's lymphoma
Glaucoma
Polycythemia
Hypertension
Gout
Hyperlipidemia
Past Surgical History: Reports Other
Additional Past Surgical History:
Meniscus repair
Hernia repair
R ACW Port Placement
Social History
Tobacco: Non-smoker
Alcohol: None
Drug: None
Living: Alone
Family History
Family History: Not pertinent
Allergies / Home Medications
Allergies reflects when Allergies were last updated in [facility].
Home Medications with original date entered in [facility]
Allergy/Medication List:
Allergies
Allergy/AdvReac Type Severity Reaction Status Date / Time
No Known Allergies Allergy Verified 07/06/23 14:04
Home Medications
Adriamycin 1 dose IV Q21D Cancer 03/27/23
Rituxan 1 dose IV Q21D Cancer 03/27/23
amlodipine 5 mg tablet 5 mg PO DAILY blood pressure 03/27/23
atorvastatin 20 mg tablet 20 mg PO QPM High Cholesterol 03/27/23
cholecalciferol (vitamin D3) 25 mcg (1,000 unit) tablet 25 mcg PO DAILY Supplement ##0 03/27/23
cyanocobalamin (vitamin B-12) 1,000 mcg tablet 1,000 mcg PO DAILY Supplement ##0 03/27/23
cyclophosphamide 1 dose IV Q21D Cancer 03/27/23
docusate sodium 100 mg capsule (Stool Softener) 100 mg PO DAILY Constipation 03/27/23
ferrous sulfate 325 mg (65 mg iron) tablet 325 mg PO DAILY Supplement 03/27/23
latanoprost 0.005 % eye drops 1 drp BOTH EYES HS Eye Condition 03/27/23
ondansetron 4 mg disintegrating tablet 4 mg PO Q6H PRN nausea/vomiting 03/27/23
prednisone 20 mg tablet 100 mg PO DIRECTED Anti-Inflammatory 03/27/23
rivaroxaban 15 mg tablet (Xarelto) 15 mg PO QPM Blood Clot Prevention/Tx 03/27/23
sotalol 80 mg tablet 40 mg PO BID Arrhythmia 03/27/23
vincristine 1 dose IV Q21D Cancer 03/27/23
famotidine 20 mg tablet (Pepcid) 20 mg PO BID 07/06/23
furosemide 20 mg tablet 20 mg PO DAILY PRN swelling 07/06/23
Review of Systems
-
History Source: Patient
A 12 point ROS was completed and negative except as noted: Yes
Constitutional: Reports Fever, Weight Loss, Fatigue and Chills
EENT: Denies Sore Throat
Respiratory: Denies Cough or Trouble Breathing
Cardiac: Denies Chest Pain or Palpitations
Abdomen/GI: Denies Abdominal Pain, Nausea, Vomiting or Diarrhea
: Denies Dysuria, Frequency or Flank Pain
Musculoskeletal: Denies Joint Pain, Joint Swelling or Edema
Neurological: Denies Dizzy or Headache
Psych: Denies Depression or Anxiety
Physical Exam
Vital Signs
Vital Signs
Temp Pulse Resp BP Pulse Ox
97.7 F 69 18 158/57 94
07/06/23 13:59 07/06/23 17:57 07/06/23 17:57 07/06/23 20:28 07/06/23 20:30
Physical Exam
General: Other (83y M in no acute distress. Mild pallor.)
HEENT: Moist mucous membranes and PERRLA
Respiratory: Other (Rales R base and 2/3 of L lung. No wheeze / rhonchi.)
Cardiac: S1/S2, Regular Rhythm and Murmur (III/ CHARLES)
GI: Soft, Non Tender, Non Distended and Normal Bowel Sounds
Musculoskeletal: No Clubbing, No Cyanosis and No Edema
Neuro: AO x 3 and Nonfocal/grossly intact
Hematologic/Lymphatic: Other (R ACW port in place. No erythema / tenderness.)
Laboratory Results
-
07/06/23 16:05
07/06/23 16:05
Laboratory Results
Lactic Acid Cancelled 07/06/23 19:45
Total Bilirubin 0.6 mg/dl (0.2-1.3) 07/06/23 16:05
AST 39 U/L (17-59) 07/06/23 16:05
ALT 36 U/L (0-50) 07/06/23 16:05
Alkaline Phosphatase 186 U/L (38-126) H 07/06/23 16:05
Impression/Plan
-
A/P: Patient is an 83y M with PMH significant for DLBCL who presents to ED for evaluation of fevers / chills x 4-5 days.
Atypical Pneumonia
- Admit for further evaluation and treatment.
- Begin abx for coverage of possible pneumonia.
- Follow for clinical improvement.
- Multiple prior similar presentations and has had similar ground glass appearance on prior PET / CT.
- Pulmonary evaluation for additional eval / recommendations.
- Suspect interstitial disease +/- related to lymphoma diagnosis and / or treatment thereof.
- Supportive care including nebs, O2 if needed, etc.
- Follow up culture data.
- Check COVID status - especially given atypical features.
JACOBY
CHFpEF
- SCr = 1.4 compared to known baseline of 1.0.
- Holding Lasix (which he only takes PRN).
- BNP markedly decreased from prior.
- Received some IVFs in the ED - hold further for now.
- Follow for improvement in renal function.
DLBCL
History of Polycythemia
- Followed by Oncology.
- Cell counts appear stable at present.
- ? if sweats, chills, lung findings, etc are related to lymphoma > infection.
- Hold chemo acutely (next and final dose was scheduled for Monday).
Paroxysmal Atrial Fibrillation
- Stable. Continue Sotalol.
- Continue Xarelto for stroke risk reduction.
DVT Prophylaxis: On Xarelto
Code Status: Full
[2023-07-06] MEDS: MAXIPIME 1000 MG IV (22:14)
[2023-07-06] MEDS: VANCOCIN 200 IV (22:15)
[2023-07-06 22:37] LABS: COVID-19 Antigen Negative (Negative)
[2023-07-06 23:27] VITALS: BP 154/60; BMI 22.1
[2023-07-06] MEDS: XARELTO 15 MG PO (23:54)
[2023-07-06] MEDS: BETAPACE 40 MG PO (23:55)
[2023-07-06] MEDS: XALATAN OPHTHALMIC SOLUTION 1 DROP BOTH EYES (23:56)
[2023-07-07] VITALS (8 sets, daily range): BP systolic 109–149; BP diastolic 45–62; PULSE 62–79; O2SAT 96; BMI 22.1
--- NOTE | 2023-07-07 05:24 | PTCARENOTE ---
Patient received from ED via stretcher. Patient denies any pain or SOB. Vitals stable. Patient placed on microarray operations vice president, call garvin/remote reviewed with patient. POC reviewed with patient. Call garvin within reach, care ongoing.
[2023-07-07 05:31] LABS: Blood Urea Nitrogen 23 mg/dl (9-20); Calcium 8.7 mg/dl (8.4-10.2); Carbon Dioxide 23 mmol/L (22-30); Chloride 104 mmol/L (98-107); Estimated Creatinine Clearance 41 ml/min; Glucose 102 mg/dl (70-99); HDL Cholesterol 28 mg/dl; LDL Cholesterol, Calculated 62 mg/dl; Potassium 4.4 mmol/L (3.5-5.1); Sodium 132 mmol/L (135-145); Total Cholesterol 110 mg/dl (50-199); Triglyceride 102 mg/dl (10-149); Very Low Density Lipoprotein 20 mg/dl (0-30); eGFR 54.51
[2023-07-07] MEDS: ROCEPHIN 1000 MG IV (07:59)
[2023-07-07] MEDS: BETAPACE 40 MG PO ×2 (08:00→20:18)
[2023-07-07] MEDS: VIBRAMYCIN 100 MG PO ×2 (08:00→21:32)
[2023-07-07] MEDS: PEPCID 20 MG PO (08:00)
[2023-07-07] MEDS: STERILE WATER FOR INJECTION 10 ML IV (08:00)
[2023-07-07] MEDS: FEOSOL 325 MG PO (08:01)
[2023-07-07] MEDS: NORVASC 5 MG PO (08:01)
[2023-07-07] MEDS: COLACE 100 MG PO ×2 (08:01→20:24)
--- NOTE | 2023-07-07 09:11 | CON.ONC ---
Addendum entered and electronically signed by Jerome Oden MD 07/07/23 14:43:
Oncology Addendum:
Patient seen and evaluated and agree w/ DRAWER HARDWARE WORKER note and plan as outlined
-DLBCL - R-mini CHOP w/ Dr. Milligan w/ GCSF - 06/20
-possible pneumonia as per pulmonary and primary service
-anemia - multifactorial - chemotherapy induced
-follow CBC
-cont supportive care
-f/u as outpt for continued management w/ Dr. Milligan
Will continue to follow with you.
Original Note:
Impression
Impression
Diffuse large B-cell lymphoma (mini R-CHOP 06/19, G-CSF 06/20)
Chemotherapy induced pancytopenia
Neutropenic fevers
Night sweats
Acute weakness/fatigue
Atrial fibrillation on Xarelto
JASON atypical PNA on CT
Acute kidney injury
Hx ET (prior Hydrea use)
Plan
Plan
07/06 WBC 11.1, Hgb 8.9 Hct 26.1, PLT 300
Monitor CBC with diff daily
Transfuse as needed to maintain Hgb >7.5, PLT >20 (or >50 w/ active bleeding)
Additional labs have been ordered and remain pending
Consider Infectious Disease consult
Urine and blood cultures pending
Continue Xarelto - monitor for bleeding
Incentive spirometry
Supportive care
[facility] office has been notified of patient's clinical status.
We will follow.
Patient History
History of Present Illness
Ed Senior is an 83 year old male patient of Dr. Milligan at [facility] with history of stage IV large B-cell lymphoma receiving mini-RCHOP therapy. His last treatment was 06/20/23 with GCS-F support administered on 06/21/23 ([place]). Patient's
daughter called the office this week reporting that patient had been fatigued with low grade temps 99.4-100.1. Patient also reported symptoms of nasal congestion and neuropathy of feet. She had been administering Tylenol. We ordered outpatient labs,
CXR, and urinalysis which were fairly unremarkable. UA and CXR were negative for infectious process. CMP was stable, CBC showed leukocytosis. He was referred to the ER for further evaluation of fevers. CT chest showing mild PNA of JASON. Patient
continues with night sweats.
Past-Medical/Surgical History
Diffuse large B-cell lymphoma
Essential (hemorrhagic) thrombocythemia (low dose ASA, previous Hydrea)
Paroxysmal atrial fibrillation (Xarelto)
Heart murmur
Hypertension
Gout
Glaucoma
Childhood hepatitis
Appendectomy
BPH s/p TURP
Hernia repair
Meniscus repair (2007)
Patient Medication
�Medication �Instructions �Recorded �Confirmed �Last Taken �Type
Adriamycin 1 dose IV Q21D Cancer 03/27/23 07/06/23 Unknown History
Rituxan 1 dose IV Q21D Cancer 03/27/23 07/06/23 Unknown History
amlodipine 5 mg tablet 5 mg PO DAILY blood pressure 03/27/23 07/06/23 07/06/23 History
atorvastatin 20 mg tablet 20 mg PO QPM High Cholesterol 03/27/23 07/06/23 07/05/23 History
cholecalciferol (vitamin D3) 25 25 mcg PO DAILY Supplement ##0 03/27/23 07/06/23 07/06/23 History
mcg (1,000 unit) tablet
cyanocobalamin (vitamin B-12) 1,000 mcg PO DAILY Supplement ##0 03/27/23 07/06/23 07/06/23 History
1,000 mcg tablet
cyclophosphamide 1 dose IV Q21D Cancer 03/27/23 07/06/23 Unknown History
docusate sodium 100 mg capsule 100 mg PO DAILY Constipation 03/27/23 07/06/23 07/06/23 History
(Stool Softener)
ferrous sulfate 325 mg (65 mg 325 mg PO DAILY Supplement 03/27/23 07/06/23 07/06/23 History
iron) tablet
latanoprost 0.005 % eye drops 1 drp BOTH EYES HS Eye Condition 03/27/23 07/06/23 07/05/23 History
ondansetron 4 mg disintegrating 4 mg PO Q6H PRN nausea/vomiting 03/27/23 07/06/23 Unknown History
tablet
prednisone 20 mg tablet 100 mg PO DIRECTED 03/27/23 07/06/23 03/26/23 History
Anti-Inflammatory
rivaroxaban 15 mg tablet (Xarelto) 15 mg PO QPM Blood Clot 03/27/23 07/06/23 07/05/23 History
Prevention/Tx
sotalol 80 mg tablet 40 mg PO BID Arrhythmia 03/27/23 07/06/23 07/06/23 History
vincristine 1 dose IV Q21D Cancer 03/27/23 07/06/23 Unknown History
famotidine 20 mg tablet (Pepcid) 20 mg PO BID 07/06/23 07/06/23 07/06/23 History
furosemide 20 mg tablet 20 mg PO DAILY PRN swelling 07/06/23 07/06/23 Unknown History
Active Medications
Generic Name Dose Route Start Last Admin
Trade Name Freq PRN Reason Stop Dose Admin
Acetaminophen 650 mg 07/06/23 23:14
Acetaminophen 325 Mg Tablet PO 08/03/23 23:13
Q4HPRN PRN
Mild Pain / Temp > 101
Albuterol Sulfate 2.5 mg 07/06/23 23:14
Albuterol Nebs 2.5 Mg/3 Ml Ampul INH
R Q4HPRN PRN
SOB
Protocol
Amlodipine Besylate 5 mg 07/07/23 08:00 07/07/23 08:01
Amlodipine 5 Mg Tablet PO 08/04/23 07:59 5 mg
DAILY ENRIQUE Administration
Atorvastatin Calcium 20 mg 07/07/23 18:00
Atorvastatin (Lipitor) 20 Mg Tablet PO 08/04/23 17:59
QPM ENRIQUE
Ceftriaxone Sodium 1,000 mg 07/07/23 08:00 07/07/23 07:59
Ceftriaxone 1000 Mg / 10 Ml Vial IV 1,000 mg
Q24H ENRIQUE Administration
Docusate Sodium 100 mg 07/07/23 08:00 07/07/23 08:01
Docusate Sodium 100 Mg Capsule PO 08/04/23 07:59 100 mg
BID ENRIQUE Administration
Doxycycline Hyclate 100 mg 07/07/23 08:00 07/07/23 08:00
Doxycycline 100 Mg Capsule PO 100 mg
Q12 ENRIQUE Administration
Famotidine 20 mg 07/07/23 08:00 07/07/23 08:00
Famotidine 20 Mg Tablet PO 08/04/23 07:59 20 mg
DAILY ENRIQUE Administration
Ferrous Sulfate 325 mg 07/07/23 08:00 07/07/23 08:01
Ferrous Sulfate 325 Mg Tablet PO 08/04/23 07:59 325 mg
DAILY ENRIQUE Administration
Latanoprost 0 drop 07/06/23 23:14 07/06/23 23:56
Latanoprost 0.005% (Ophthalmic Solution) 2.5 Ml Bottle BOTH EYES 08/03/23 23:13 1 drop
HS ENRIQUE Administration
Ondansetron HCl 4 mg 07/06/23 23:14
Ondansetron 4 Mg/2 Ml Vial IV 08/03/23 23:13
Q6HPRN PRN
nausea and vomiting
Polyethylene Glycol 17 grams 07/06/23 23:14
Polyethylene Glycol Powder 17 Grams Packet PO 08/03/23 23:13
DAILYPRN PRN
Constipation
Rivaroxaban 15 mg 07/06/23 23:14 07/06/23 23:54
Rivaroxaban 15 Mg Tablet PO 08/03/23 23:13 15 mg
QPM ENRIQUE Administration
Sodium Chloride 0 flush 07/06/23 23:00
Sodium Chloride 0.9% (Flush) Syringe IV 08/03/23 22:59
PER PROTOCOL ENRIQUE
Sotalol HCl 40 mg 07/06/23 23:14 07/07/23 08:00
Sotalol 80 Mg Tablet PO 08/03/23 23:13 40 mg
BID ENRIQUE Administration
Sterile Water 10 ml 07/07/23 08:00 07/07/23 08:00
Sterile Water For Injection 10 Ml Vial IV 08/04/23 07:59 10 ml
Q24H ENRIQUE Administration
Review of Systems
-
History Source: Patient, Physician, Coordinated Provider and Records
Constitutional: Reports Night Sweats; Denies Fever
EENT: Reports No Symptoms
Respiratory: Reports No Symptoms
Cardiac: Reports No Symptoms
GI: Reports No Symptoms
Breast: Reports N/A
: Reports No Symptoms
Musculoskeletal: Reports No Symptoms
Skin: Reports No Symptoms
Neuro: Reports No Symptoms
Endocrine: Reports No Symptoms
Hematologic/Lymphatic: Reports No Symptoms
Allergy / Immunology: Reports No Symptoms
Psych: Reports No Symptoms
Physical Exam
-
Patient is resting in bed. He denies acute pain and states he feels 'fine'. Denies cough, SOB/MOREIRA or chset pain. He reports drenching night sweats. Denies fever this AM.
General: Well Developed, Comfortable, Sweats, Conversant and Appears Chronically Ill
HEENT: Negative Jaundice
Cardiology: S1, S2 and Other (bradycardia)
Pulmonary: Other (crackles/diminished, room air )
GI: Normal Bowel Sounds
Musculoskeletal: No Edema and Normal Gait & Station
Extremities: Pulses Present
Neurology: Non Focal
Skin: Warm, Dry and Other (pallor)
Hematologic / Lymphatic: No Petechiae
Psych: Calm
Labs
Lab Results
WBC 12.0 10^3/uL (4.8-10.8) H 07/06/23 16:05
RBC 3.28 10^6/uL (4.70-6.10) L 07/06/23 16:05
Hgb 10.3 g/dL (13.0-18.0) L 07/06/23 16:05
Hct 30.4 % (39.0-52.0) L 07/06/23 16:05
MCV 92.7 fL (80.0-94.0) 07/06/23 16:05
MCH 31.4 pg (27.0-31.0) H 07/06/23 16:05
MCHC 33.9 g/dL (33.0-37.0) 07/06/23 16:05
RDW 14.7 % (11.5-14.5) H 07/06/23 16:05
Plt Count 341 10^3/uL (130-400) 07/06/23 16:05
MPV 9.9 fL (7.4-10.4) 07/06/23 16:05
Abs Immat Gran (auto) 0.1 10^3/uL (0-0.05) H 07/06/23 16:05
Absolute Neuts (auto) 9.3 10^3/uL (1.4-6.5) H 07/06/23 16:05
Absolute Lymphs (auto) 0.7 10^3/uL (1.2-3.4) L 07/06/23 16:05
Absolute Monos (auto) 1.4 10^3/uL (0.1-0.6) H 07/06/23 16:05
Absolute Eos (auto) 0.5 10^3/uL (0-0.7) 07/06/23 16:05
Absolute Basos (auto) 0.1 10^3/uL (0-0.2) 07/06/23 16:05
Immature Gran % 0.7 % (0-0.5) H 07/06/23 16:05
Neutrophils % 77.2 % (42.2-75.2) H 07/06/23 16:05
Lymphocytes % 5.7 % (20.5-51.1) L 07/06/23 16:05
Monocytes % 11.9 % (1.7-9.3) H 07/06/23 16:05
Eosinophils % 3.8 % (0-6) 07/06/23 16:05
Basophils % 0.7 % (0-2) 07/06/23 16:05
Creatinine 1.3 mg/dL (0.7-1.3) 07/07/23 04:30
Vital Signs
Vital Signs
Temp Pulse Resp BP Pulse Ox
97.9 F 61 16 131/58 95
07/07/23 07:00 07/07/23 08:00 07/07/23 07:00 07/07/23 08:00 07/07/23 07:00
07/06/[address]: Mild pneumonia, most pronounced in the left upper lobe. However, no dense consolidation.No adenopathy
--- NOTE | 2023-07-07 09:55 | CON.PUL ---
Consultation
Consultation Request
Date/Time Consultation Requested: 07/07/2023-9 AM
Date/Time Consultation Performed: 07/07/2023-9:30 AM
Requesting Provider: Hospitalist
Performing Provider: Dr. Álvarez
Reason for Consultation: Pneumonia
Medical History
-
Chief Complaint: Shortness of breath and pneumonia
History of Present Illness:
83-year-old male with a history of large B cell non-Hodgkin's lymphoma on chemotherapy complaining of mild shortness of breath, fevers and chills noted to have pneumonia and pulmonary was consulted for pneumonia 07/07/2023. He states that over the
last 4 days he has had low-grade temperatures and night sweats. He had some mild shortness of breath when he climbs stairs. He denies any chest pain, chest tightness, mopped assist, productive cough, abdominal pain, nausea, vomiting, anorexia,
unintentional weight loss or increased leg swelling.
Past Medical History
Past Medical History: None (Hypertension. Hyperlipidemia. Polycythemia. Diffuse large B cell non-Hodgkin's lymphoma on chemotherapy. Glaucoma.)
Social History
Tobacco: Former Smoker (Minimal-1 to 2 cigarettes daily for a couple years-quit 50 years ago)
Alcohol: None
Drug: None
Living: With Family
Occupational Exposures: No known asbestos exposure
Environmental Exposures: No known tuberculosis exposure
Family History
Family History: Reviewed & Not Pertinent
Allergies / Home Medications
Allergies
Allergy/AdvReac Type Severity Reaction Status Date / Time
No Known Allergies Allergy Verified 07/06/23 14:04
Home Medications
�Medication �Instructions �Recorded �Confirmed �Last Taken �Type
Adriamycin 1 dose IV Q21D Cancer 03/27/23 07/06/23 Unknown History
Rituxan 1 dose IV Q21D Cancer 03/27/23 07/06/23 Unknown History
amlodipine 5 mg tablet 5 mg PO DAILY blood pressure 03/27/23 07/06/23 07/06/23 History
atorvastatin 20 mg tablet 20 mg PO QPM High Cholesterol 03/27/23 07/06/23 07/05/23 History
cholecalciferol (vitamin D3) 25 25 mcg PO DAILY Supplement ##0 03/27/23 07/06/23 07/06/23 History
mcg (1,000 unit) tablet
cyanocobalamin (vitamin B-12) 1,000 mcg PO DAILY Supplement ##0 03/27/23 07/06/23 07/06/23 History
1,000 mcg tablet
cyclophosphamide 1 dose IV Q21D Cancer 03/27/23 07/06/23 Unknown History
docusate sodium 100 mg capsule 100 mg PO DAILY Constipation 03/27/23 07/06/23 07/06/23 History
(Stool Softener)
ferrous sulfate 325 mg (65 mg 325 mg PO DAILY Supplement 03/27/23 07/06/23 07/06/23 History
iron) tablet
latanoprost 0.005 % eye drops 1 drp BOTH EYES HS Eye Condition 03/27/23 07/06/23 07/05/23 History
ondansetron 4 mg disintegrating 4 mg PO Q6H PRN nausea/vomiting 03/27/23 07/06/23 Unknown History
tablet
prednisone 20 mg tablet 100 mg PO DIRECTED 03/27/23 07/06/23 03/26/23 History
Anti-Inflammatory
rivaroxaban 15 mg tablet (Xarelto) 15 mg PO QPM Blood Clot 03/27/23 07/06/23 07/05/23 History
Prevention/Tx
sotalol 80 mg tablet 40 mg PO BID Arrhythmia 03/27/23 07/06/23 07/06/23 History
vincristine 1 dose IV Q21D Cancer 03/27/23 07/06/23 Unknown History
famotidine 20 mg tablet (Pepcid) 20 mg PO BID 07/06/23 07/06/23 07/06/23 History
furosemide 20 mg tablet 20 mg PO DAILY PRN swelling 07/06/23 07/06/23 Unknown History
Review of Systems
-
Unable to Obtain full review of systems at this time due to: Other (Per HPI)
Vitals / Labs / Diagnostic Testing
Vital Signs
Temp Pulse Resp BP Pulse Ox
97.9 F 61 16 131/58 95
07/07/23 07:00 07/07/23 08:00 07/07/23 07:00 07/07/23 08:00 07/07/23 07:00
Lab Data
07/07/23 04:30
Diagnostic Testing:
Physical Exam
-
Exam:
Well-nourished and well-developed in no apparent distress
HEENT-atraumatic, normocephalic
Neck-supple, no JVD, no bruit
Heart-regular rate and rhythm-no murmurs, rubs or gallops
Chest with crackles at both bases and no wheezes
Back without tenderness
Abdomen-soft, nontender, nondistended, no hepatosplenomegaly
Extremities-no cyanosis, clubbing, edema and good peripheral pulses
Integument-intact, no rashes, lesions or ecchymosis
Neurology-alert and oriented, nonfocal motor and sensory exam
Assessment
-
83-year-old male with a history of large B cell non-Hodgkin's lymphoma on chemotherapy complaining of mild shortness of breath, fevers and chills noted to have pneumonia and pulmonary was consulted for pneumonia 07/07/2023.
Pneumonia in immunocompromised patient with lymphoma undergoing chemotherapy
Chemotherapy induced pancytopenia
Anemia-hemoglobin 10.3-normocytic
Neutropenic fevers
JACOBY
Mild hyponatremia-serum sodium 132
Conditions present prior to admission:
Hypertension.
Hyperlipidemia.
History of polycythemia
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
Glaucoma.
Atrial fibrillation on Xarelto
Plan
History consistent with acute/subacute infection with fevers, chills and night sweats along with radiographic abnormalities consistent with pneumonia
Supplemental oxygen as needed
Incentive spirometry
Mucolytic's
Nebulizers if needed-currently not bronchospastic
Check cultures including sputum
Empiric antibiotics to cover community-acquired sources-ceftriaxone and doxycycline initiated
Radiographs reviewed-exam with bibasilar crackles-CT chest to my eye with basilar peripheral interstitial/fibrotic changes- I question whether there is a component of chronic interstitial pulmonary fibrosis
Recommend treating pneumonia and eventually getting follow-up CT chest and PFTs
Oncology evaluation
Monitor pancytopenia
Monitor renal function
Consider nephrology evaluation if worsens
Replace electrolytes
DVT prophylaxis recommended
Nutrition
Early mobilization
Outpatient pulmonary follow-up
Diagnostic data:
Chest x-ray 03/30/2023-diffuse increased interstitial and groundglass opacifications
Chest x-ray 07/04/2023-NAD, mild interstitial fibrosis
Chest x-ray 07/06/2023-mild bilateral peripheral pneumonia slightly greater than right
CT chest 07/06/2023-mild pneumonia most pronounced left upper lobe, no adenopathy, mild dependent atelectasis
PET scan/-favorable/complete response to therapy, stable splenomegaly, interval resolution of previous hypermetabolic lymph nodes
Data Reviewed
-
EKG: Report reviewed by me
Radiology: Report reviewed by me
CT Scan: Image personally visualized and interpreted and Report reviewed by me
Medical Tests (Nuc Med, Echo etc): Report reviewed by me
Labs: Labs reviewed by me
Old Records: Reviewed
Total Time Spent with Patient (in minutes): 65
--- NOTE | 2023-07-07 09:58 | W.PN.HOSP.TC ---
Today's Communication/Plan
-
.
Assessment / Plan
Assessment / Plan
Physical Exam
General: Other (83y M in no acute distress. Mild pallor.)
HEENT: Moist mucous membranes and PERRLA
Respiratory: Limited, no significant rales. No wheezes.
Cardiac: S1/S2, Regular Rhythm and Murmur (III/ CHARLES)
GI: Soft, Non Tender, Non Distended and Normal Bowel Sounds
Musculoskeletal: No Clubbing, No Cyanosis and No Edema
Neuro: AO x 3 and Nonfocal/grossly intact
Hematologic/Lymphatic: Other (R ACW port in place. No erythema / tenderness.)
Psych: no agitation.
Patient is an 83y M with PMH significant for DLBCL who presents to ED for evaluation of fevers / chills x 4-5 days.
# Fevers at home
DDX lymphoma related, less likely ? Atypical Pneumonia. CT chest showed : Mild pneumonia, most pronounced in the left upper lobe
Patient denied sob or cough.
No fevers or chills over night
- Antibiotics for coverage of possible pneumonia.
- Multiple prior similar presentations and has had similar ground glass appearance on prior PET / CT.
- Pulmonary evaluation for additional eval / recommendations.
- Suspect interstitial disease +/- related to lymphoma diagnosis and / or treatment thereof.
- Supportive care including nebs, O2 if needed, etc.
- Follow up culture data.
- Negative COVID status - especially given atypical features.
# Hyponatremia
# JACOBY
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
- SCr = 1.4 compared to known baseline of 1.0. Creatinine 1.3
- Holding Lasix (which he only takes PRN).
- BNP markedly decreased from prior.
- Received some IVFs in the ED - hold further for now.
- Follow for improvement in renal function.
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
History of Polycythemia
- Primary oncologist Dr Milligan.
- Cell counts appear stable at present.
- ? if sweats, chills, lung findings, etc are related to lymphoma > infection.
- Hold chemo acutely (next and final dose was scheduled for Monday).
# History of Chemotherapy induced pancytopenia. Currently his counts are not low
# Paroxysmal Atrial Fibrillation
- No chest pain. Continue Sotalol.
- Continue Xarelto for stroke risk reduction.
# DVT Prophylaxis: On Xarelto
Code Status: Full
# Hx ET (prior Hydrea use)
Total time spent to see the patient, examine the patient on the floor, review data and lab results, discuss treatment plan with patient, nursing staff around 55 minutes
Anticipated Discharge: 24 - 48 hours
Subjective/Interval History
-
Date of Service: July 07, 2023
He feels better, no chills or fevers last night
No cough
No pain issues
Objective Data
-
Labs:
Laboratory Results
07/07/23 07/07/23
04:30 09:41
WBC Pending
Hgb Pending
Hct Pending
Plt Count Pending
Sodium 132 L
Potassium 4.4
Chloride 104
Carbon Dioxide 23
BUN 23 H
Creatinine 1.3
Glucose 102 H
Calcium 8.7
Vital Signs:
Vital Signs
Temp Pulse Resp BP Pulse Ox
97.9 F 61 16 131/58 95
07/07/23 07:00 07/07/23 08:00 07/07/23 07:00 07/07/23 08:00 07/07/23 07:00
I&O
07/06/23 07/07/23 07/08/23
06:59 06:59 06:59
Intake Total 240 / 240
Balance 240 / 240
[2023-07-07 11:04] LABS: % Basophils 0.5 % (0-2); % Eosinophils 4.9 % (0-6); % Immature Granulocytes 0.6 % (0-0.5); % Lymphocytes 4.5 % (20.5-51.1); % Monocytes 14.8 % (1.7-9.3); % Neutrophils 74.7 % (42.2-75.2); Absolute Basophils 0.1 10^3/uL (0-0.2); Absolute Eosinophils 0.5 10^3/uL (0-0.7); Absolute Immature Granulocytes 0.1 10^3/uL (0-0.05); Absolute Lymphocytes 0.5 10^3/uL (1.2-3.4); Absolute Monocytes 1.6 10^3/uL (0.1-0.6); Absolute Neutrophils 8.3 10^3/uL (1.4-6.5); Hematocrit 26.1 % (39.0-52.0); Hemoglobin 8.9 g/dL (13.0-18.0); Mean Corp Hgb Conc. 34.1 g/dL (33.0-37.0); Mean Corpuscular Hgb 31.6 pg (27.0-31.0); Mean Corpuscular Volume 92.6 fL (80.0-94.0); Mean Platelet Volume 9.7 fL (7.4-10.4); Nucleated Red Blood Cells % 0 % (-); Platelet Count 300 10^3/uL (130-400); Red Blood Cell Count 2.82 10^6/uL (4.70-6.10); Red Cell Dist. Width 14.9 % (11.5-14.5); White Blood Cell Count 11.1 10^3/uL (4.8-10.8)
[2023-07-07 11:32] LABS: LDH 266 U/L (120-246); Uric Acid 6.5 mg/dl (3.5-8.5)
[2023-07-07 12:42] LABS: Folate > 20.0 ng/ml (2.76-20); Vitamin B12 > 1000 pg/ml (239-931)
--- NOTE | 2023-07-07 16:41 | CM ---
Alert awake oriented patient who lives with his dgt Lucía who lives in a 2 story home with 4 step to enter and 12 steps to bed and bathroom. He is independent in all activities of daily living.He was offered Vn he requested [facility] .
[facility] hx / No SNF history
Pharmacy [facility]
PCP DR Trent Canela
PLAN Home with [facility] if accepted
[2023-07-07] MEDS: LIPITOR 20 MG PO (17:04)
[2023-07-07] MEDS: XARELTO 15 MG PO (17:04)
[2023-07-07] MEDS: TYLENOL 650 MG PO (20:27)
[2023-07-07] MEDS: XALATAN OPHTHALMIC SOLUTION 1 DROP BOTH EYES (21:32)
[2023-07-08 03:00] VITALS: BP 121/56
[2023-07-08 06:00] VITALS: BMI 21.6
[2023-07-08 08:05] VITALS: BP 139/63
[2023-07-08] MEDS: ROCEPHIN 1000 MG IV (09:16)
[2023-07-08] MEDS: STERILE WATER FOR INJECTION 10 ML IV (09:17)
[2023-07-08] MEDS: PEPCID 20 MG PO (09:18)
[2023-07-08] MEDS: NORVASC 5 MG PO (09:18)
[2023-07-08] MEDS: COLACE 100 MG PO ×2 (09:18→20:12)
[2023-07-08] MEDS: BETAPACE 40 MG PO ×2 (09:18→20:11)
[2023-07-08] MEDS: FEOSOL 325 MG PO (09:19)
[2023-07-08] MEDS: VIBRAMYCIN 100 MG PO ×2 (09:19→21:09)
[2023-07-08 11:35] VITALS: BP 142/61
--- NOTE | 2023-07-08 11:47 | W.PN.HOSP.TC ---
Today's Communication/Plan
-
.
Assessment / Plan
Assessment / Plan
Physical Exam
General: Other (83y M in no acute distress. Mild pallor.)
HEENT: Moist mucous membranes and PERRLA
Respiratory: Limited, no significant rales. No wheezes.
Cardiac: S1/S2, Regular Rhythm and Murmur (III/ CHARLES)
GI: Soft, Non Tender, Non Distended and Normal Bowel Sounds
Musculoskeletal: No Clubbing, No Cyanosis and No Edema
Neuro: AO x 3 and Nonfocal/grossly intact
Hematologic/Lymphatic: Other (R ACW port in place. No erythema / tenderness.)
Psych: no agitation.
Patient is an 83y M with PMH significant for DLBCL who presents to ED for evaluation of fevers / chills x 4-5 days.
# Fevers at home
DDX lymphoma related, less likely ? Atypical Pneumonia. CT chest showed : Mild pneumonia, most pronounced in the left upper lobe
Patient denied sob or cough.
No fevers or chills over night
- Antibiotics for coverage of possible pneumonia per images but no respiratory issues.
- Multiple prior similar presentations and has had similar ground glass appearance on prior PET / CT.
- Suspect interstitial disease +/- related to lymphoma diagnosis and / or treatment thereof. I requested pulmonary doctor to re-evaluate
- Blood culture no growth
- Negative COVID status - especially given atypical features.
# Hyponatremia
# JACOBY
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
- SCr = 1.4 compared to known baseline of 1.0. Creatinine 1.3
- Holding Lasix (which he only takes PRN).
- BNP markedly decreased from prior.
- Received some IVFs in the ED - hold further for now.
- Follow for improvement in renal function.
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
History of Polycythemia
- Primary oncologist Dr Milligan.
- Cell counts appear stable at present.
- ? if sweats, chills, lung findings, etc are related to lymphoma > infection.
- Chemotherapy : next and final dose is scheduled for this Monday).
# History of Chemotherapy induced pancytopenia. Currently his counts are not low other than anemia
# Paroxysmal Atrial Fibrillation
- No chest pain. Continue Sotalol.
- Continue Xarelto for stroke risk reduction.
# DVT Prophylaxis: On Xarelto
Code Status: Full
# Hx ET (prior Hydrea use)
Total time spent to see the patient, examine the patient on the floor, review data and lab results, discuss treatment plan with patient, consultants, nursing staff around 57 minutes
Anticipated Discharge: Within 24 hours
Subjective/Interval History
-
Date of Service: July 08, 2023
No sob
No chest pain
No cough
Objective Data
-
Vital Signs:
Vital Signs
Temp Pulse Resp BP Pulse Ox
98 F 67 16 142/61 97
07/08/23 11:35 07/08/23 11:35 07/08/23 11:35 07/08/23 11:35 07/08/23 11:35
I&O
07/07/23 07/08/23 07/09/23
06:59 06:59 06:59
Intake Total 240 / 240 1740 / 1740
Balance 240 / 240 1740 / 1740
[2023-07-08 15:43] VITALS: BP 131/61
--- NOTE | 2023-07-08 16:41 | W.PN.PUL3 ---
Today's Communication / Plan
-
Will continue antibiotics, patient continues to report chills/sweats and feeling flushed.
Low-grade fevers documented.
Follow cultures
If remains symptomatic bronchoscopy will be indicated in this patient with immunosuppression.
Assessment
-
83-year-old male with a history of large B cell non-Hodgkin's lymphoma on chemotherapy complaining of mild shortness of breath, fevers and chills noted to have pneumonia and pulmonary was consulted for pneumonia 07/07/2023.
Pneumonia in immunocompromised patient with lymphoma undergoing chemotherapy
CT chest: Showed patchy bilateral groundglass opacities. Particularly on the left upper lobe.
Chemotherapy induced pancytopenia
Anemia-hemoglobin 10.3-normocytic
Neutropenic fevers
JACOBY
Mild hyponatremia-serum sodium 132
Conditions present prior to admission:
Hypertension.
Hyperlipidemia.
History of polycythemia
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
Glaucoma.
Atrial fibrillation on Xarelto
Plan
History consistent with acute/subacute infection with fevers, chills and night sweats along with radiographic abnormalities consistent with pneumonia
Appears nontoxic but continues to report night sweats and chills.
He feels flushed.
Denies shortness of breath, hemoptysis or phlegm production.
Continues to have intermittent low-grade fevers.
Leukocytosis is mild and noted.
All cultures pending.
All cultures negative
Unable to produce sputum. All unable to produce a sputum.
Empiric antibiotics to cover community-acquired sources-ceftriaxone and doxycycline initiated. Day 2 of antibiotics.
-
Based on CT scan- does have infiltrates, groundglass opacities left upper lobe predominant but does have bilateral, currently on immunosuppression- I will err on the side of complaint and a course of 7 days of antibiotics.
Continues to report chills and night sweats.
-
Radiographs -exam with bibasilar crackles-CT chest to my eye with basilar peripheral interstitial/fibrotic changes- I question whether there is a component of chronic interstitial pulmonary fibrosis
Recommend treating pneumonia and eventually getting follow-up CT chest and PFTs
Abnormalities on CAT scan are new compared to PET scan performed on May 22, 2023. Images reviewed.
-
Differential diagnosis includes also noninfectious pneumonitis, drug-induced pneumonitis, opportunistic infections.
If continues to be symptomatic chills, low-grade fevers and negative cultures then bronchoscopy will be necessary.
Discussed with patient in detail.
Will reevaluate in a.m.
Oncology evaluation-noted
DVT prophylaxis recommended
Outpatient pulmonary follow-up, information will be left in the chart.

Diagnostic data:
Chest x-ray 03/30/2023-diffuse increased interstitial and groundglass opacifications
Chest x-ray 07/04/2023-NAD, mild interstitial fibrosis
Chest x-ray 07/06/2023-mild bilateral peripheral pneumonia slightly greater than right
CT chest 07/06/2023-mild pneumonia most pronounced left upper lobe, no adenopathy, mild dependent atelectasis
PET scan/-favorable/complete response to therapy, stable splenomegaly, interval resolution of previous hypermetabolic lymph nodes
Subjective Data
-
Date of Service:
Date of Service: July 08, 2023
Chief Complaint: Pulmonary Follow Up (Hypoxemic-possible pneumonia)
Review of Systems
General: Fever (n)
Cardiopulmonary: Dyspnea (none at rest)
GI: Abdominal Pain (n) and Nausea (n)
Objective Data
Data Reviewed
Vital Signs / I&O / Oxygen:
Vital Signs
Temp Pulse Resp BP Pulse Ox
98 F 76 16 131/61 95
07/08/23 15:43 07/08/23 15:43 07/08/23 15:43 07/08/23 15:43 07/08/23 15:43
Intake and Output
07/07/23 07/08/23 07/09/23
06:59 06:59 06:59
Intake Total 240 / 240 1740 / 1740
Balance 240 / 240 1740 / 1740
SaO2 95
Physical Exam
General: Respiratory Distress (n) and Comfortable
HEENT: Normocephalic
Cardiovascular: S1-S2
Respiratory: Clear and Non-Labored Respirations
GI: Soft and Non Distended
Neurology: Awake and Alert
Skin: Warm (n)
Labs/Micro/Reports
Lab Data
07/07/23 10:52
07/07/23 04:30
Microbiology
07/06/23 16:05 Blood/Venous Blood Culture - Preliminary
No Growth in 48 hours- Final report to follow
07/06/23 16:05 Blood/Venous Blood Culture - Preliminary
No Growth in 48 hours- Final report to follow
07/06/23 19:47 Blood/Venous Blood Culture - Preliminary
No Growth in 24 hours- Final report to follow
[2023-07-08] MEDS: LIPITOR 20 MG PO (18:01)
[2023-07-08] MEDS: XARELTO 15 MG PO (18:01)
[2023-07-08] MEDS: TYLENOL 650 MG PO (18:10)
[2023-07-08 19:00] VITALS: BP 130/61; BP 130/66; BP 133/56; PULSE 78; PULSE 85; PULSE 87
[2023-07-08] MEDS: XALATAN OPHTHALMIC SOLUTION 1 DROP BOTH EYES (21:09)
[2023-07-08 23:00] VITALS: BP 125/57
[2023-07-09 03:00] VITALS: BP 127/58
[2023-07-09 06:00] VITALS: BMI 21.6
[2023-07-09 06:18] LABS: % Basophils 0.7 % (0-2); % Eosinophils 7.1 % (0-6); % Immature Granulocytes 0.7 % (0-0.5); % Lymphocytes 5.1 % (20.5-51.1); % Monocytes 13.7 % (1.7-9.3); % Neutrophils 72.7 % (42.2-75.2); Absolute Basophils 0.1 10^3/uL (0-0.2); Absolute Eosinophils 0.8 10^3/uL (0-0.7); Absolute Immature Granulocytes 0.1 10^3/uL (0-0.05); Absolute Lymphocytes 0.6 10^3/uL (1.2-3.4); Absolute Monocytes 1.5 10^3/uL (0.1-0.6); Hematocrit 26.4 % (39.0-52.0); Hemoglobin 9.3 g/dL (13.0-18.0); Mean Corp Hgb Conc. 35.2 g/dL (33.0-37.0); Mean Corpuscular Hgb 31.5 pg (27.0-31.0); Mean Corpuscular Volume 89.5 fL (80.0-94.0); Mean Platelet Volume 9.9 fL (7.4-10.4); Nucleated Red Blood Cells % 0 % (-); Platelet Count 388 10^3/uL (130-400); Red Blood Cell Count 2.95 10^6/uL (4.70-6.10); Red Cell Dist. Width 14.7 % (11.5-14.5); White Blood Cell Count 11.1 10^3/uL (4.8-10.8)
[2023-07-09 06:41] LABS: ALT (SGPT) 36 U/L (0-50); AST (SGOT) 35 U/L (17-59); Albumin 3.3 g/dl (3.5-5.0); Alkaline Phosphatase 292 U/L (38-126); Blood Urea Nitrogen 28 mg/dl (9-20); Calcium 9.3 mg/dl (8.4-10.2); Carbon Dioxide 20 mmol/L (22-30); Chloride 105 mmol/L (98-107); Estimated Creatinine Clearance 48 ml/min; Glucose 106 mg/dl (70-99); Potassium 4.3 mmol/L (3.5-5.1); Sodium 133 mmol/L (135-145); Total Bilirubin 0.5 mg/dl (0.2-1.3); Total Protein 5.8 g/dl (6.3-8.2); eGFR > 60.00
[2023-07-09 07:00] VITALS: BP 129/57
[2023-07-09] MEDS: STERILE WATER FOR INJECTION 10 ML IV (09:32)
[2023-07-09] MEDS: COLACE 100 MG PO ×2 (09:33→20:35)
[2023-07-09] MEDS: FEOSOL 325 MG PO (09:33)
[2023-07-09] MEDS: ROCEPHIN 1000 MG IV (09:33)
[2023-07-09] MEDS: NORVASC 5 MG PO (09:33)
[2023-07-09] MEDS: PEPCID 20 MG PO (09:33)
[2023-07-09] MEDS: VIBRAMYCIN 100 MG PO ×2 (09:34→21:39)
[2023-07-09] MEDS: BETAPACE 40 MG PO ×2 (09:34→20:35)
--- NOTE | 2023-07-09 10:26 | W.PN.ONC ---
Today's Communication / Plan
-
Continue abx - doxycycline
Pulm is considering bronch if symptoms persist
Will stop FeSO4 - recent outpatient ferritin was 2500!
Further treatment of lymphoma TBD, will need to be rescheduled (was scheduled for 07/09)
Impression
Impression
Pneumonia, JASON
Diffuse large B-cell lymphoma (mini R-CHOP 06/19, G-CSF 06/20)
Night sweats
Atrial fibrillation on Xarelto
Hx ET (prior Hydrea use)
Plan
Plan
Continue abx - doxycycline
Pulm is considering bronch if symptoms persist
Will stop FeSO4 - recent outpatient ferritin was 2500!
Further treatment of lymphoma TBD, will need to be rescheduled (was scheduled for 07/09)
Subjective/Objective
Subjective/Objective
had some sweats/chills last evening, got tylenol and slept well for the first time in a while
dry cough, no sputum
Vital Signs:
Vital Signs
Temp Pulse Resp BP Pulse Ox
97.4 F 67 14 129/57 96
07/09/23 07:00 07/09/23 07:00 07/09/23 07:00 07/09/23 07:00 07/09/23 07:00
Lab Results:
Laboratory Data
WBC 11.1 10^3/uL (4.8-10.8) H 07/09/23 05:37
Hgb 9.3 g/dL (13.0-18.0) L 07/09/23 05:37
Plt Count 388 10^3/uL (130-400) D 07/09/23 05:37
eGFR > 60.00 07/09/23 05:37
Orders
Orders
Orders From Last 24 Hours
07/09/23 05:37
CMP [Comprehensive Metabolic Panel] IN AM
Complete Blood Count/With Diff IN AM
[2023-07-09 11:00] VITALS: BP 125/58; BP 128/58; BP 131/58; PULSE 65; PULSE 73; PULSE 76
--- NOTE | 2023-07-09 11:59 | W.PN.HOSP.TC ---
Today's Communication/Plan
-
.
Assessment / Plan
Assessment / Plan
Physical Exam
General: Other (83y M in no acute distress. Mild pallor.)
HEENT: Moist mucous membranes and PERRLA
Respiratory: Limited, no significant rales. No wheezes.
Cardiac: S1/S2, Regular Rhythm and Murmur (III/ CHARLES)
GI: Soft, Non Tender, Non Distended and Normal Bowel Sounds
Musculoskeletal: No Clubbing, No Cyanosis and No Edema
Neuro: AO x 3 and Nonfocal/grossly intact
Hematologic/Lymphatic: Other (R ACW port in place. No erythema / tenderness.)
Psych: no agitation.
Patient is an 83y M with PMH significant for DLBCL who presented to ED for evaluation of fevers / chills x 4-5 days.
# Fevers at home, Suspected with absence of respiratory symptoms.
DDX lymphoma related, atypical Pneumonia. CT chest showed : Mild pneumonia, most pronounced in the left upper lobe
Patient denied sob or cough.
No fevers. No tachycardia.
No chills over night but reported night time sweating ( less last night)
- Antibiotics for coverage of possible pneumonia per images. Doxy and Rocephin.
urine culture is negative. Port in right upper chest looks clean with no tenderness or erythema
- CT is reviewed.
- Blood culture no growth
- Negative COVID status
- Pulmonary to decide if bronchoscopy is necessary
- Appreciate pulmonary help
# Hyponatremia
# JACOBY
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
- SCr = 1.4 compared to known baseline of 1.0. Creatinine 1.1
- Holding Lasix (which he only takes PRN).
- BNP markedly decreased from prior.
- Received some IVFs in the ED - hold further for now.
- Follow for improvement in renal function.
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
History of Polycythemia
- Primary oncologist Dr Milligan.
- Cell counts appear stable at present.
- Chemotherapy : next and final dose was scheduled for this Monday/ but now rescheduled.
# History of Chemotherapy induced pancytopenia. Currently his counts are not low other than mild anemia which is anemia of malignancy/ chemo related.
# Paroxysmal Atrial Fibrillation
- No chest pain. Continue Sotalol.
- Continue Xarelto for stroke risk reduction.
# DVT Prophylaxis: On Xarelto
Code Status: Full
# Hx ET (prior Hydrea use)
Total time spent to see the patient, examine the patient on the floor, review data and lab results, discuss treatment plan with patient, family, consultants, , nursing staff around 59 minutes
Anticipated Discharge: 24 - 48 hours
Subjective/Interval History
-
Date of Service: July 09, 2023
No chest pain, no sob
No fevers
Reports less sweating at night
Objective Data
-
Labs:
Laboratory Results
07/09/23
05:37
WBC 11.1 H
Hgb 9.3 L
Hct 26.4 L
Plt Count 388 D
Sodium 133 L
Potassium 4.3
Chloride 105
Carbon Dioxide 20 L
BUN 28 H
Creatinine 1.1
Glucose 106 H
Calcium 9.3
Total Bilirubin 0.5
AST 35
ALT 36
Alkaline Phosphatase 292 H
Vital Signs:
Vital Signs
Temp Pulse Resp BP Pulse Ox
97.8 F 65 14 128/58 97
07/09/23 11:00 07/09/23 11:00 07/09/23 11:00 07/09/23 11:00 07/09/23 11:00
I&O
07/08/23 07/09/23 07/10/23
06:59 06:59 06:59
Intake Total 1740 / 1740 1680 / 1680
Balance 1740 / 1740 1680 / 1680
--- NOTE | 2023-07-09 13:54 | W.PN.PUL3 ---
Today's Communication / Plan
-
Continue antibiotics
Transition to oral tomorrow if improved
Continue to monitor symptoms
If improved complete 7 days of antibiotic, today is day 3 of antibiotics.
If continues to be symptomatic chills/night sweats bronchoscopy will be needed. This will be an ongoing discussion.
Assessment
-
83-year-old male with a history of large B cell non-Hodgkin's lymphoma on chemotherapy complaining of mild shortness of breath, fevers and chills noted to have pneumonia and pulmonary was consulted for pneumonia 07/07/2023.
Pneumonia in immunocompromised patient with lymphoma undergoing chemotherapy
CT chest: Showed patchy bilateral groundglass opacities. Particularly on the left upper lobe.
Chemotherapy induced pancytopenia
Anemia-hemoglobin 10.3-normocytic
Neutropenic fevers
JACOBY
Mild hyponatremia-serum sodium 132
Conditions present prior to admission:
Hypertension.
Hyperlipidemia.
History of polycythemia
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
Glaucoma.
Atrial fibrillation on Xarelto
Plan
History consistent with acute/subacute infection with fevers, chills and night sweats along with radiographic abnormalities consistent with pneumonia
Appears nontoxic but continues to report night sweats and chills.
He feels flushed.
-
Denies shortness of breath, hemoptysis or phlegm production.
No documented fevers. Only low-grade.
Leukocytosis is mild and noted.
Today 07/09/2023: Less symptomatic.
All cultures negative.
Unable to produce sputum. All unable to produce a sputum.
Empiric antibiotics to cover community-acquired sources-ceftriaxone and doxycycline initiated. Day 3 of antibiotics.
-
Based on CT scan- does have infiltrates, groundglass opacities left upper lobe predominant but does have bilateral, currently on immunosuppression- I will err on the side of complete a course of 7 days of antibiotics.
Will continue to monitor symptoms.
Radiographs -exam with bibasilar crackles-CT chest to my eye with basilar peripheral interstitial/fibrotic changes- I question whether there is a component of chronic interstitial pulmonary fibrosis
Abnormalities on CAT scan are new compared to PET scan performed on May 22, 2023. Images reviewed.
-
Differential diagnosis includes also noninfectious pneumonitis, drug-induced pneumonitis, opportunistic infections, less likely malignant.
If continues to be symptomatic chills, low-grade fevers and negative cultures then bronchoscopy will be necessary.
Discussed with patient in detail. Daughter was updated by Dr. Barrera 07/09/2023
At this point continue antibiotics, he seems to be improving.
-
If in the next 24 hours there is no documented fevers transition to oral antibiotics and complete 7 days. May use Augmentin.
Will need outpatient close follow-up if discharged.
-
Oncology evaluation-noted
DVT prophylaxis recommended
Outpatient pulmonary follow-up, information will be left in the chart.

Diagnostic data:
Chest x-ray 03/30/2023-diffuse increased interstitial and groundglass opacifications
Chest x-ray 07/04/2023-NAD, mild interstitial fibrosis
Chest x-ray 07/06/2023-mild bilateral peripheral pneumonia slightly greater than right
CT chest 07/06/2023-mild pneumonia most pronounced left upper lobe, no adenopathy, mild dependent atelectasis
PET scan/-favorable/complete response to therapy, stable splenomegaly, interval resolution of previous hypermetabolic lymph nodes
Subjective Data
-
Date of Service:
Date of Service: July 09, 2023
Chief Complaint: Pulmonary Follow Up (Hypoxemic-possible pneumonia)
Subjective:
Reporting less night sweats
Hemodynamically stable
No reported fevers
Review of Systems
General: Fever (n)
Cardiopulmonary: Dyspnea (n), Dyspnea on Exertion (n) and Cough (n)
GI: Abdominal Pain (n)
Objective Data
Data Reviewed
Vital Signs / I&O / Oxygen:
Vital Signs
Temp Pulse Resp BP Pulse Ox
97.8 F 65 14 128/58 97
07/09/23 11:00 07/09/23 11:00 07/09/23 11:00 07/09/23 11:00 07/09/23 11:00
Intake and Output
07/08/23 07/09/23 07/10/23
06:59 06:59 06:59
Intake Total 1740 / 1740 1680 / 1680
Balance 1740 / 1740 1680 / 1680
SaO2 97
Physical Exam
General: Respiratory Distress (n) and Comfortable
HEENT: Normocephalic
Cardiovascular: S1-S2
Respiratory: Clear and Non-Labored Respirations
GI: Soft and Non Distended
Neurology: Awake and Alert
Skin: Warm (n)
Labs/Micro/Reports
Lab Data
07/09/23 05:37
07/09/23 05:37
Microbiology
07/06/23 19:47 Blood/Venous Blood Culture - Preliminary
No Growth in 48 hours- Final report to follow
07/06/23 16:05 Blood/Venous Blood Culture - Preliminary
No Growth in 48 hours- Final report to follow
07/06/23 16:05 Blood/Venous Blood Culture - Preliminary
No Growth in 48 hours- Final report to follow
[2023-07-09 15:00] VITALS: BP 110/59
[2023-07-09] MEDS: XARELTO 15 MG PO (17:59)
[2023-07-09] MEDS: LIPITOR 20 MG PO (17:59)
[2023-07-09 20:04] VITALS: BP 142/61; BP 148/63; BP 150/65; PULSE 87; PULSE 88; PULSE 94
[2023-07-09] MEDS: TYLENOL 650 MG PO (20:37)
[2023-07-09] MEDS: XALATAN OPHTHALMIC SOLUTION 1 DROP BOTH EYES (21:39)
[2023-07-09 23:40] VITALS: BP 112/53
[2023-07-10 03:20] VITALS: BP 124/56
[2023-07-10 06:00] VITALS: BMI 21.6
[2023-07-10 06:58] LABS: % Basophils 0.9 % (0-2); % Eosinophils 9.6 % (0-6); % Immature Granulocytes 0.8 % (0-0.5); % Lymphocytes 5.5 % (20.5-51.1); % Neutrophils 69.2 % (42.2-75.2); Absolute Basophils 0.1 10^3/uL (0-0.2); Absolute Eosinophils 1.3 10^3/uL (0-0.7); Absolute Immature Granulocytes 0.1 10^3/uL (0-0.05); Absolute Lymphocytes 0.7 10^3/uL (1.2-3.4); Absolute Monocytes 1.9 10^3/uL (0.1-0.6); Absolute Neutrophils 9.2 10^3/uL (1.4-6.5); Hematocrit 28.1 % (39.0-52.0); Hemoglobin 9.6 g/dL (13.0-18.0); Mean Corp Hgb Conc. 34.2 g/dL (33.0-37.0); Mean Corpuscular Hgb 31.7 pg (27.0-31.0); Mean Corpuscular Volume 92.7 fL (80.0-94.0); Mean Platelet Volume 9.8 fL (7.4-10.4); Nucleated Red Blood Cells % 0 % (-); Platelet Count 437 10^3/uL (130-400); Red Blood Cell Count 3.03 10^6/uL (4.70-6.10); Red Cell Dist. Width 14.7 % (11.5-14.5); White Blood Cell Count 13.2 10^3/uL (4.8-10.8)
[2023-07-10 07:23] LABS: Blood Urea Nitrogen 28 mg/dl (9-20); Calcium 9.4 mg/dl (8.4-10.2); Carbon Dioxide 22 mmol/L (22-30); Chloride 105 mmol/L (98-107); Estimated Creatinine Clearance 48 ml/min; Glucose 105 mg/dl (70-99); Potassium 4.6 mmol/L (3.5-5.1); Sodium 136 mmol/L (135-145); eGFR > 60.00
[2023-07-10 07:39] VITALS: BP 134/57
[2023-07-10] MEDS: BETAPACE 40 MG PO ×2 (08:21→20:43)
[2023-07-10] MEDS: COLACE 100 MG PO ×2 (08:23→20:44)
[2023-07-10] MEDS: PEPCID 20 MG PO (08:23)
[2023-07-10] MEDS: STERILE WATER FOR INJECTION 10 ML IV (08:23)
[2023-07-10] MEDS: ROCEPHIN 1000 MG IV (08:23)
[2023-07-10] MEDS: NORVASC 5 MG PO (08:23)
[2023-07-10] MEDS: VIBRAMYCIN 100 MG PO ×2 (10:06→21:47)
--- NOTE | 2023-07-10 10:06 | CM ---
Patient seen at bedside, patient confirmed living arrangements and plan for discharge home. Patient did not anticipate needing VN, at this time but will be opten to consider. CM will continue to follow for discharge planning needs.
Plan; home with [facility] vs home with no needs
--- NOTE | 2023-07-10 10:11 | W.PN.PUL.V3 ---
Today's Communication / Plan
-
Continues with night sweats, had 1 temperature last evening
Continue to monitor night sweats and temperature
Consider bronchoscopy-reviewed with patient
Oncology following
Assessment
-
83-year-old male with a history of large B cell non-Hodgkin's lymphoma on chemotherapy complaining of mild shortness of breath, fevers and chills noted to have pneumonia and pulmonary was consulted for pneumonia 07/07/2023.
Pneumonia in immunocompromised patient with lymphoma undergoing chemotherapy
CT chest: Showed patchy bilateral groundglass opacities. Particularly on the left upper lobe.
Chemotherapy induced pancytopenia
Anemia-hemoglobin 10.3-normocytic
Neutropenic fevers
JACOBY
Mild hyponatremia-serum sodium 132
Conditions present prior to admission:
Hypertension.
Hyperlipidemia.
History of polycythemia
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
Glaucoma.
Atrial fibrillation on Xarelto
Plan
History consistent with acute/subacute infection with fevers, chills and night sweats along with radiographic abnormalities consistent with pneumonia
Appears nontoxic but continues to report night sweats and chills.
He continues to deny any shortness of breath, hemoptysis or phlegm production.
Had temperature of 101.5 last evening-continue to monitor temperature and night sweats
Monitor persistent mild leukocytosis
Cultures reviewed-negative thus far
Urine Legionella and streptococcal antigens negative
Unable to produce sputum. All unable to produce a sputum.
Continue empiric antibiotics-finish finite course
Consider bronchoscopy if persistent night sweats-CT chest reviewed with groundglass opacifications left upper lobe
Differential diagnosis includes also noninfectious pneumonitis, drug-induced pneumonitis, opportunistic infections, less likely malignant.
Oncology following-correspondence reviewed
DVT prophylaxis recommended
Outpatient pulmonary follow-up, information will be left in the chart.
Diagnostic data:
Chest x-ray 03/30/2023-diffuse increased interstitial and groundglass opacifications
Chest x-ray 07/04/2023-NAD, mild interstitial fibrosis
Chest x-ray 07/06/2023-mild bilateral peripheral pneumonia slightly greater than right
CT chest 07/06/2023-mild pneumonia most pronounced left upper lobe, no adenopathy, mild dependent atelectasis
PET scan/-favorable/complete response to therapy, stable splenomegaly, interval resolution of previous hypermetabolic lymph nodes
Subjective Data
-
Date of Service:
Date of Service: July 10, 2023
Chief Complaint: Pulmonary Follow Up (Hypoxemic-possible pneumonia) and Dyspnea Follow Up
Subjective:
Continues to complain of nighttime temperatures and night sweats, during the daytime he feels fine, no shortness of breath, chest congestion, productive cough, night sweats worse than when he was first diagnosed with lymphoma
Review of Systems
General: Other (Per HPI)
Objective Data
Data Reviewed
Vital Signs / I&O:
Vital Signs
Temp Pulse Resp BP Pulse Ox
97.5 F 63 16 134/57 95
07/10/23 07:39 07/10/23 08:21 07/10/23 07:39 07/10/23 08:21 07/10/23 07:39
Intake and Output
07/09/23 07/10/23 07/11/23
06:59 06:59 06:59
Intake Total 1680 / 1680
Balance 1680 / 1680
SaO2: 95
Physical Exam
General: Respiratory Distress (n) and Comfortable
HEENT: Normocephalic
Cardiovascular: Regular Rhythm
Respiratory: Clear, Wheeze (n), Crackles (n), Rhonchi, Non-Labored Respirations, Accessory Resp Muscle Use (n) and Stridor (n)
GI: Soft and Non Distended
Neurology: Awake, Alert and No Motor Deficits
Skin: Warm (n), Good Color (n), Cyanosis (n) and Jaundice (n)
Labs/Micro/Reports
Lab Data
07/10/23 06:22
07/10/23 06:22
Microbiology
07/06/23 19:47 Blood/Venous Blood Culture - Preliminary
No Growth in 72 hours- Final report to follow
07/06/23 16:05 Blood/Venous Blood Culture - Preliminary
No Growth in 72 hours- Final report to follow
07/06/23 16:05 Blood/Venous Blood Culture - Preliminary
No Growth in 72 hours- Final report to follow
[2023-07-10 11:30] VITALS: BP 140/57; BP 149/66; BP 166/64; PULSE 63; PULSE 71; PULSE 72
--- NOTE | 2023-07-10 11:47 | W.PN.HOSP.TC ---
Today's Communication/Plan
-
trend wbc/fever curve
Cont abx
?possible bronch this admit
Assessment / Plan
Assessment / Plan
Physical Exam
General: Other (83y M in no acute distress. Mild pallor.)
HEENT: Moist mucous membranes and
Respiratory: Limited, no significant rales. No wheezes.
Cardiac: S1/S2, Regular Rhythm and Murmur (III/ CHARLES)
GI: Soft, Non Tender, Non Distended and Normal Bowel Sounds
Musculoskeletal: No Clubbing, No Cyanosis and No Edema
Neuro: AO x 3 and Nonfocal/grossly intact
Hematologic/Lymphatic: Other (R ACW port in place. No erythema / tenderness.)
Psych: no agitation.
Patient is an 83y M with PMH significant for DLBCL who presented to ED for evaluation of fevers / chills x 4-5 days.
# Fevers at home, Suspected with absence of respiratory symptoms.
DDX lymphoma related, atypical Pneumonia. CT chest showed : Mild pneumonia, most pronounced in the left upper lobe
Patient denied sob or cough.
No fevers. No tachycardia.
- Antibiotics for coverage of possible pneumonia per images. Doxy and Rocephin.
urine culture is negative. Port in right upper chest looks clean with no tenderness or erythema
- CT is reviewed.
- Blood culture no growth
- Negative COVID status
- Pulmonary to decide if bronchoscopy is necessary
-If persistent fever will ask ID for input
- Appreciate pulmonary help
# Hyponatremia-resolved.
# JACOBY
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
- SCr = 1.4 compared to known baseline of 1.0. Creatinine 1.1 back to baseline
- Holding Lasix (which he only takes PRN).
- BNP markedly decreased from prior.
- Received some IVFs in the ED - hold further for now.
- Follow for improvement in renal function.
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
History of Polycythemia/ET
- Primary oncologist Dr Milligan.
- Cell counts appear stable at present.
- Chemotherapy : next and final dose was scheduled for this Monday/ but now rescheduled.
# History of Chemotherapy induced pancytopenia. Currently his counts are not low other than mild anemia which is anemia of malignancy/ chemo related.
# Paroxysmal Atrial Fibrillation
- No chest pain. Continue Sotalol.
- Continue Xarelto for stroke risk reduction.
# DVT Prophylaxis: On Xarelto
Code Status: Full
Anticipated Discharge: 24 - 48 hours
Subjective/Interval History
-
Date of Service: July 10, 2023
spiked fever overnight
states he felt flushed and started sweating
dry cough
no dysuria or diarrhea
denies rash
deneis LE or UE edema
Objective Data
-
Labs:
Laboratory Results
07/10/23
06:22
WBC 13.2 H
Hgb 9.6 L
Hct 28.1 L
Plt Count 437 H
Sodium 136
Potassium 4.6
Chloride 105
Carbon Dioxide 22
BUN 28 H
Creatinine 1.1
Glucose 105 H
Calcium 9.4
Vital Signs:
Vital Signs
Temp Pulse Resp BP Pulse Ox
97.5 F 63 16 134/57 95
07/10/23 07:39 07/10/23 08:21 07/10/23 07:39 07/10/23 08:21 07/10/23 10:11
I&O
07/09/23 07/10/23 07/11/23
06:59 06:59 06:59
Intake Total 1680 / 1680
Balance 1680 / 1680
--- NOTE | 2023-07-10 11:51 | VNURNOTE ---
Home Health Liaison met with patient and son at bedside to discuss [facility] nurse/therapy, visits, schedule and homebound status. Patient is agreeable and understands that visits at home will be 2-3 x per week to assess and teach medical management.
Patient has had our services in the past.
[facility] brochure provided with contact information. Patient is aware that [facility] will contact them for start of care in 1-2 days after discharge from .
[facility] referral completed in [facility].
--- NOTE | 2023-07-10 12:37 | W.PN.ONC ---
Today's Communication / Plan
-
Fever last night, preceded by chills, with subsequent sweats. However, he looks and feels good today. Continue antibiotics. Bronchoscopy plans as per pulmonary.
Impression
Impression
Pneumonia, JASON
Diffuse large B-cell lymphoma (mini R-CHOP 06/19, G-CSF 06/20)
Night sweats
Atrial fibrillation on Xarelto
Hx ET (prior Hydrea use)
Plan
Plan
Continue abx - doxycycline
Pulm is considering bronch if symptoms persist
Will stop FeSO4 - recent outpatient ferritin was 2500!
Further treatment of lymphoma TBD, will need to be rescheduled (was scheduled for 07/09)
Subjective/Objective
Subjective/Objective
He is feeling reasonably well. He reports no new symptoms. Examination is unchanged. There is a soft systolic murmur, which he says he has had since childhood.
Vital Signs:
Vital Signs
Temp Pulse Resp BP Pulse Ox
97.5 F 63 16 134/57 95
07/10/23 07:39 07/10/23 08:21 07/10/23 07:39 07/10/23 08:21 07/10/23 10:11
Lab Results:
Laboratory Data
WBC 13.2 10^3/uL (4.8-10.8) H 07/10/23 06:22
Hgb 9.6 g/dL (13.0-18.0) L 07/10/23 06:22
Plt Count 437 10^3/uL (130-400) H 07/10/23 06:22
eGFR > 60.00 07/10/23 06:22
[2023-07-10 16:00] VITALS: BP 125/54
--- NOTE | 2023-07-10 16:12 | W.PN.UPDATE ---
Update Note
Progress Note Update
Dr. Álvarez called and updated daughter at length.
Told patient still having night sweats and temperature spikes and should have responded to antibacterial antibiotics by now.
Told daughter that if he has another night of night sweats than likely we would set him up for a bronchoscopy-Chek for atypicals, opportunistic infections, and cytology, possible biopsy.
Told daughter that bronchoscopy would be the next step, but it is not always diagnostic-attempting to inform with realistic expectations
[2023-07-10 16:39] LABS: Lyme Antibody Screen, EIA Negative (Negative)
[2023-07-10] MEDS: LIPITOR 20 MG PO (17:43)
[2023-07-10] MEDS: XARELTO 15 MG PO (17:43)
[2023-07-10 19:40] VITALS: BP 138/74
[2023-07-10] MEDS: XALATAN OPHTHALMIC SOLUTION 1 DROP BOTH EYES (21:48)
[2023-07-10 23:26] VITALS: BP 118/51
[2023-07-11] VITALS (7 sets, daily range): BP systolic 121–148; BP diastolic 51–59; PULSE 68; O2SAT 97; BMI 21.6
[2023-07-11] MEDS: BETAPACE 40 MG PO ×2 (07:46→21:00)
[2023-07-11] MEDS: COLACE 100 MG PO ×2 (07:51→21:00)
[2023-07-11] MEDS: PEPCID 20 MG PO (07:52)
[2023-07-11] MEDS: STERILE WATER FOR INJECTION 10 ML IV (07:53)
[2023-07-11] MEDS: NORVASC 5 MG PO (07:53)
[2023-07-11] MEDS: ROCEPHIN 1000 MG IV (07:54)
--- NOTE | 2023-07-11 09:41 | W.PN.PUL.V3 ---
Today's Communication / Plan
-
Monitor temperature curve and night sweats.
Continue antibiotics.
Bronchoscopy tentatively scheduled for tomorrow if personnel available to help perform
Assessment
-
83-year-old male with a history of large B cell non-Hodgkin's lymphoma on chemotherapy complaining of mild shortness of breath, fevers and chills noted to have pneumonia and pulmonary was consulted for pneumonia 07/07/2023.
Pneumonia in immunocompromised patient with lymphoma undergoing chemotherapy
CT chest: Showed patchy bilateral groundglass opacities. Particularly on the left upper lobe.
Chemotherapy induced pancytopenia
Anemia-hemoglobin 10.3-normocytic
Neutropenic fevers
JACOBY
Mild hyponatremia-serum sodium 132
Conditions present prior to admission:
Hypertension.
Hyperlipidemia.
History of polycythemia
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
Glaucoma.
Atrial fibrillation on Xarelto
Plan
History consistent with acute/subacute infection with fevers, chills and night sweats along with radiographic abnormalities consistent with pneumonia
Appears nontoxic but continues to report night sweats and chills.
He continues to deny any shortness of breath, hemoptysis or phlegm production..
Overall, had a better night-only low-grade temp and no drenching night sweats
Monitor persistent mild leukocytosis
Cultures reviewed-negative thus far
Urine Legionella and streptococcal antigens negative
Unable to produce sputum. All unable to produce a sputum.
Continue empiric antibiotics-finish finite course.
Bronchoscopy tentatively scheduled for tomorrow 07/12/23. If personnel available to perform-I have contacted GI suite/respiratory and they will get back to me.
If he is much improved, no more temperatures, no night sweats, then the bronchoscopy may be canceled.
Check chest x-ray 07/11/23.
Differential diagnosis includes also noninfectious pneumonitis, drug-induced pneumonitis, opportunistic infections, less likely malignant.
Oncology following-correspondence reviewed
Dr. Álvarez updated daughter 07/10/23
DVT prophylaxis recommended
Outpatient pulmonary follow-up, information will be left in the chart.
Diagnostic data:
Chest x-ray 03/30/2023-diffuse increased interstitial and groundglass opacifications
Chest x-ray 07/04/2023-NAD, mild interstitial fibrosis
Chest x-ray 07/06/2023-mild bilateral peripheral pneumonia slightly greater than right
CT chest 07/06/2023-mild pneumonia most pronounced left upper lobe, no adenopathy, mild dependent atelectasis
PET scan/-favorable/complete response to therapy, stable splenomegaly, interval resolution of previous hypermetabolic lymph nodes
Subjective Data
-
Date of Service:
Date of Service: July 11, 2023
Chief Complaint: Pulmonary Follow Up (Hypoxemic-possible pneumonia) and Dyspnea Follow Up
Subjective:
Had a better night, only low-grade temp, no drenching night sweats, no increased sugars of breath, productive cough, or abdominal pain
Review of Systems
General: Other ( per HPI)
Objective Data
Data Reviewed
Vital Signs / I&O:
Vital Signs
Temp Pulse Resp BP Pulse Ox
98.0 F 66 18 128/59 96
07/11/23 07:30 07/11/23 07:46 07/11/23 07:30 07/11/23 07:46 07/11/23 07:30
Intake and Output
07/10/23 07/11/23 07/12/23
06:59 06:59 06:59
Intake Total 940 / 940
Balance 940 / 940
SaO2: 96
Physical Exam
General: Respiratory Distress (n) and Comfortable
HEENT: Normocephalic
Cardiovascular: Regular Rhythm
Respiratory: Clear, Wheeze (n), Crackles (n), Rhonchi, Non-Labored Respirations, Accessory Resp Muscle Use (n) and Stridor (n)
GI: Soft and Non Distended
Neurology: Awake, Alert and No Motor Deficits
Skin: Warm (n), Good Color (n), Cyanosis (n) and Jaundice (n)
Labs/Micro/Reports
Lab Data
07/10/23 06:22
07/10/23 06:22
Microbiology
07/06/23 19:47 Blood/Venous Blood Culture - Preliminary
No Growth in 4 days- Final report to follow
07/06/23 16:05 Blood/Venous Blood Culture - Preliminary
No Growth in 4 days- Final report to follow
07/06/23 16:05 Blood/Venous Blood Culture - Preliminary
No Growth in 4 days- Final report to follow
--- NOTE | 2023-07-11 10:59 | W.PN.HOSP.TC ---
Today's Communication/Plan
-
IV abx
Pulm recs
npo pmn
trend fever/wbc curve
culture data neg so far
Assessment / Plan
Assessment / Plan
Physical Exam
General: Other (83y M in no acute distress. Mild pallor.)
HEENT: Moist mucous membranes and
Respiratory: Limited, no significant rales. No wheezes.
Cardiac: S1/S2, Regular Rhythm and Murmur (III/ CHARLES)
GI: Soft, Non Tender, Non Distended and Normal Bowel Sounds
Musculoskeletal: No Clubbing, No Cyanosis and No Edema
Neuro: AO x 3 and Nonfocal/grossly intact
Hematologic/Lymphatic: Other (R ACW port in place. No erythema / tenderness.)
Psych: no agitation.
Patient is an 83y M with PMH significant for DLBCL who presented to ED for evaluation of fevers / chills x 4-5 days.
#Fever likely 2/2 malignancy Diffuse large B-cell lymphoma vs. pneumonia bacterial/viral
Patient denied sob or cough.
No fevers. No tachycardia. No GI symptoms. No urinary symptoms. No rash.
- Antibiotics for coverage of possible pneumonia per images. Doxy and Rocephin.
urine culture is negative. Port in right upper chest looks clean with no tenderness or erythema.
- CT is reviewed.
- Blood culture no growth
- Negative COVID status
- Pulmonary to decide if bronchoscopy is necessary-plan to keep NPO pmn
- Appreciate pulmonary help
# Hyponatremia-resolved.
# JACOBY
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
- SCr = 1.4 compared to known baseline of 1.0. Creatinine 1.1 back to baseline
- Holding Lasix (which he only takes PRN).
- BNP markedly decreased from prior.
- Received some IVFs in the ED - hold further for now.
- Follow for improvement in renal function.
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
History of Polycythemia/ET
- Primary oncologist Dr Milligan.
- Cell counts appear stable at present.
- Chemotherapy : next and final dose was scheduled for this Monday/ but now rescheduled.
# History of Chemotherapy induced pancytopenia. Currently his counts are not low other than mild anemia which is anemia of malignancy/ chemo related.
# Paroxysmal Atrial Fibrillation
- No chest pain. Continue Sotalol.
- Continue Xarelto for stroke risk reduction.
# DVT Prophylaxis: On Xarelto
Code Status: Full
Anticipated Discharge: 24 - 48 hours
Subjective/Interval History
-
Date of Service: July 11, 2023
spiked fever yesterday but no chills/sweats
Objective Data
-
Vital Signs:
Vital Signs
Temp Pulse Resp BP Pulse Ox
98.0 F 66 18 128/59 96
07/11/23 07:30 07/11/23 07:46 07/11/23 07:30 07/11/23 07:46 07/11/23 09:41
I&O
07/10/23 07/11/23 07/12/23
06:59 06:59 06:59
Intake Total 940 / 940
Balance 940 / 940
[2023-07-11] MEDS: VIBRAMYCIN 100 MG PO ×2 (11:28→21:06)
[2023-07-11] MEDS: LIPITOR 20 MG PO (16:59)
[2023-07-11] MEDS: XARELTO 15 MG PO (16:59)
[2023-07-11] MEDS: XALATAN OPHTHALMIC SOLUTION 1 DROP BOTH EYES (21:06)
[2023-07-12] VITALS (12 sets, daily range): BP systolic 113–141; BP diastolic 46–66; PULSE 65–74; BMI 21.6
[2023-07-12 05:03] LABS: % Basophils 0.8 % (0-2); % Eosinophils 12.1 % (0-6); % Immature Granulocytes 0.9 % (0-0.5); % Lymphocytes 7.2 % (20.5-51.1); % Monocytes 16.1 % (1.7-9.3); % Neutrophils 62.9 % (42.2-75.2); Absolute Basophils 0.1 10^3/uL (0-0.2); Absolute Eosinophils 1.2 10^3/uL (0-0.7); Absolute Immature Granulocytes 0.1 10^3/uL (0-0.05); Absolute Lymphocytes 0.7 10^3/uL (1.2-3.4); Absolute Monocytes 1.7 10^3/uL (0.1-0.6); Absolute Neutrophils 6.4 10^3/uL (1.4-6.5); Hematocrit 25.1 % (39.0-52.0); Hemoglobin 8.7 g/dL (13.0-18.0); Mean Corp Hgb Conc. 34.7 g/dL (33.0-37.0); Mean Corpuscular Hgb 31.2 pg (27.0-31.0); Nucleated Red Blood Cells % 0 % (-); Platelet Count 441 10^3/uL (130-400); Red Blood Cell Count 2.79 10^6/uL (4.70-6.10); Red Cell Dist. Width 14.7 % (11.5-14.5); White Blood Cell Count 10.2 10^3/uL (4.8-10.8)
[2023-07-12 05:30] LABS: Blood Urea Nitrogen 30 mg/dl (9-20); Calcium 9.1 mg/dl (8.4-10.2); Carbon Dioxide 22 mmol/L (22-30); Chloride 104 mmol/L (98-107); Estimated Creatinine Clearance 44 ml/min; Glucose 102 mg/dl (70-99); Potassium 4.5 mmol/L (3.5-5.1); Sodium 134 mmol/L (135-145); eGFR > 60.00
[2023-07-12] MEDS: NSS 1000 IV (05:51)
--- NOTE | 2023-07-12 07:02 | W.PN.ONC2 ---
Today's Communication / Plan
-
Proceed with Bronch.
PET 05/21 was KYLAH and CR (Lugano 1). Suspect not related to NHL but await path.
Impression
Impression
Pneumonia, JASON
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
Night sweats
Atrial fibrillation on Xarelto
Hx ET (prior Hydrea use)
Plan
Plan
Await bronch scheduled for later today.
PET 05/21 shows [place] 1 (radiographic CR so suspect sweats unlikely DLCL but await bronch and path). Atypical infections more likely.
Further treatment of lymphoma TBD, will need to be rescheduled (was scheduled for 07/09). It was supposed to be his final cycle.
Subjective/Objective
Chief Complaint
ACS Heme ONC F/U
Subjective
For Bronch this am ~ 9:30 AM. Low grade fevers with drenching sweats if he takes Tylenol. Otherwise looks good and feels pretty good.
Vital Signs:
Vital Signs
Temp Pulse Resp BP Pulse Ox
98.7 F 63 16 126/55 92
07/12/23 03:41 07/12/23 03:41 07/12/23 03:41 07/12/23 03:41 07/12/23 03:41
Lab Results:
Laboratory Data
WBC 10.2 10^3/uL (4.8-10.8) 07/12/23 04:24
Hgb 8.7 g/dL (13.0-18.0) L 07/12/23 04:24
Plt Count 441 10^3/uL (130-400) H 07/12/23 04:24
eGFR > 60.00 07/12/23 04:24
Physical Exam
HEENT: No Jaundice
Cardiology: S1 and S2
Pulmonary: Clear
GI: Soft
Extremities: No C/C/E
[2023-07-12] MEDS: BETAPACE 40 MG PO ×2 (08:25→20:17)
[2023-07-12] MEDS: PEPCID 20 MG PO (08:27)
[2023-07-12] MEDS: ROCEPHIN 1000 MG IV (08:27)
[2023-07-12] MEDS: STERILE WATER FOR INJECTION 10 ML IV (08:27)
[2023-07-12] MEDS: NORVASC 5 MG PO (08:27)
[2023-07-12] MEDS: COLACE 100 MG PO ×2 (08:28→20:18)
--- NOTE | 2023-07-12 10:03 | W.PN.PUL.V3 ---
Today's Communication / Plan
-
Bronchoscopy
Check atypical cultures
Reviewed with oncology
Continue antibiotics
Assessment
-
83-year-old male with a history of large B cell non-Hodgkin's lymphoma on chemotherapy complaining of mild shortness of breath, fevers and chills noted to have pneumonia and pulmonary was consulted for pneumonia 07/07/2023.
Pneumonia in immunocompromised patient with lymphoma undergoing chemotherapy
CT chest: Showed patchy bilateral groundglass opacities. Particularly on the left upper lobe.
Chemotherapy induced pancytopenia
Anemia-hemoglobin 10.3-normocytic
Neutropenic fevers
JACOBY
Mild hyponatremia-serum sodium 132
Conditions present prior to admission:
Hypertension.
Hyperlipidemia.
History of polycythemia
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
Glaucoma.
Atrial fibrillation on Xarelto
Plan
History consistent with acute/subacute infection with fevers, chills and night sweats along with radiographic abnormalities consistent with pneumonia
Appears nontoxic but continues to report night sweats as well as low-grade temperatures
He continues to deny any shortness of breath, hemoptysis or phlegm production..
Overall, had a better night-only low-grade temp and no drenching night sweats
Monitor persistent mild leukocytosis
Cultures reviewed-negative thus far
Urine Legionella and streptococcal antigens negative
Unable to produce sputum. All unable to produce a sputum.
Continue empiric antibiotics-finish finite course.
Bronchoscopy 07/12/2390-[id number] endobronchial lesions, minimal secretions, culture sent for routine, AFB, fungal, viral panel and and cytology
Chest x-ray 07/30 with progressive left greater than right interstitial infiltrates
Consider infectious disease consultation
Differential diagnosis includes also noninfectious pneumonitis, drug-induced pneumonitis, opportunistic infections, less likely malignant.
Oncology following-reviewed with Dr. Zipin does not believe infiltrates, chills, and night sweats are oncologically related and more likely atypical infection
Dr. Álvarez updated daughter 07/10/23 as well as 07/12/23 at length
DVT prophylaxis recommended
Outpatient pulmonary follow-up, information will be left in the chart.
Diagnostic data:
Chest x-ray 03/30/2023-diffuse increased interstitial and groundglass opacifications
Chest x-ray 07/04/2023-NAD, mild interstitial fibrosis
Chest x-ray 07/06/2023-mild bilateral peripheral pneumonia slightly greater than right
CT chest 07/06/2023-mild pneumonia most pronounced left upper lobe, no adenopathy, mild dependent atelectasis
PET scan/-favorable/complete response to therapy, stable splenomegaly, interval resolution of previous hypermetabolic lymph nodes
Subjective Data
-
Date of Service:
Date of Service: July 12, 2023
Chief Complaint: Pulmonary Follow Up (Hypoxemic-possible pneumonia) and Dyspnea Follow Up
Subjective:
Patient did not complain of any night sweats last evening, had low-grade temperature, no increase shortness of breath, productive cough or abdominal pain
Review of Systems
General: Other ( Per HPI)
Objective Data
Data Reviewed
Vital Signs / I&O:
Vital Signs
Temp Pulse Resp BP Pulse Ox
97.5 F 59 14 125/46 94
07/12/23 09:25 07/12/23 09:45 07/12/23 09:45 07/12/23 09:45 07/12/23 09:45
Intake and Output
07/11/23 07/12/23 07/13/23
06:59 06:59 06:59
Intake Total 940 / 940 1200 / 1200 60 / 60
Balance 940 / 940 1200 / 1200 60 / 60
SaO2: 94
Nasal Cannula flow liters per minute: 2
Physical Exam
General: Respiratory Distress (n) and Comfortable
HEENT: Normocephalic
Cardiovascular: Regular Rhythm
Respiratory: Clear, Wheeze (n), Crackles (n), Rhonchi, Non-Labored Respirations, Accessory Resp Muscle Use (n) and Stridor (n)
GI: Soft and Non Distended
Neurology: Awake, Alert and No Motor Deficits
Skin: Warm (n), Good Color (n), Cyanosis (n) and Jaundice (n)
Labs/Micro/Reports
Lab Data
07/12/23 04:24
07/12/23 04:24
Microbiology
07/06/23 19:47 Blood/Venous Blood Culture - Final
No Growth - Final Report
07/06/23 16:05 Blood/Venous Blood Culture - Final
No Growth - Final Report
07/06/23 16:05 Blood/Venous Blood Culture - Final
No Growth - Final Report
[2023-07-12] MEDS: VIBRAMYCIN 100 MG PO ×2 (10:37→21:17)
--- NOTE | 2023-07-12 12:14 | W.PN.HOSP.TC ---
Today's Communication/Plan
-
bronch results
IV abx
trend fever curve
Assessment / Plan
Assessment / Plan
Physical Exam
General: Other (83y M in no acute distress. Mild pallor.)
HEENT: Moist mucous membranes and
Respiratory: Limited, no significant rales. No wheezes.
Cardiac: S1/S2, Regular Rhythm and Murmur (III/ CHARLES)
GI: Soft, Non Tender, Non Distended and Normal Bowel Sounds
Musculoskeletal: No Clubbing, No Cyanosis and No Edema
Neuro: AO x 3 and Nonfocal/grossly intact
Hematologic/Lymphatic: Other (R ACW port in place. No erythema / tenderness.)
Psych: no agitation.
Patient is an 83y M with PMH significant for DLBCL who presented to ED for evaluation of fevers / chills x 4-5 days.
#Fever likely 2/2 atypical pneumonia bacterial/viral
Patient denied sob or cough.
No fevers. No tachycardia. No GI symptoms. No urinary symptoms. No rash.
- Antibiotics for coverage of possible pneumonia per images. Doxy and Rocephin.
urine culture is negative. Port in right upper chest looks clean with no tenderness or erythema.
- CT is reviewed.
- Blood culture no growth
- Negative COVID status
- CXR with bilateral infiltrates. ?viral pneumonia/pneumonitis.
- Per oncology, fever not malignancy related. Leukocytosis resolved.
- s/p bronchoscopy
- Hopefully some preliminary data results in 24 hours.
- Appreciate pulmonary help
- If spikes fever again consult ID.
# Hyponatremia-resolved.
# JACOBY
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
- SCr = 1.4 compared to known baseline of 1.0. Creatinine 1.1 back to baseline
- Holding Lasix (which he only takes PRN).
- BNP markedly decreased from prior.
- Received some IVFs in the ED - hold further for now.
- Follow for improvement in renal function.
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
History of Polycythemia/ET
- Primary oncologist Dr Milligan.
- Cell counts appear stable at present.
- Chemotherapy : next and final dose was scheduled for this Monday/ but now rescheduled.
# History of Chemotherapy induced pancytopenia. Currently his counts are not low other than mild anemia which is anemia of malignancy/ chemo related.
# Paroxysmal Atrial Fibrillation
- No chest pain. Continue Sotalol.
- Continue Xarelto for stroke risk reduction.
# DVT Prophylaxis: On Xarelto
Code Status: Full
d/w with son at bedside in details.
Anticipated Discharge: 24 - 48 hours
Subjective/Interval History
-
Date of Service: July 12, 2023
Afebrile overnight
low temp per pt to 100.1F
seen post bronch
Objective Data
-
Labs:
Laboratory Results
07/12/23
04:24
WBC 10.2
Hgb 8.7 L
Hct 25.1 L
Plt Count 441 H
Sodium 134 L
Potassium 4.5
Chloride 104
Carbon Dioxide 22
BUN 30 H
Creatinine 1.2
Glucose 102 H
Calcium 9.1
Vital Signs:
Vital Signs
Temp Pulse Resp BP Pulse Ox
97.2 F 60 18 141/56 97
07/12/23 10:36 07/12/23 10:36 07/12/23 10:36 07/12/23 10:36 07/12/23 10:36
I&O
07/11/23 07/12/23 07/13/23
06:59 06:59 06:59
Intake Total 940 / 940 1200 / 1200 120 / 120
Balance 940 / 940 1200 / 1200 120 / 120
[2023-07-12] MEDS: TYLENOL 650 MG PO (16:17)
[2023-07-12] MEDS: XARELTO 15 MG PO (17:33)
[2023-07-12] MEDS: LIPITOR 20 MG PO (17:33)
[2023-07-12] MEDS: XALATAN OPHTHALMIC SOLUTION 1 DROP BOTH EYES (21:17)
[2023-07-13 03:24] VITALS: BP 121/54
[2023-07-13 06:00] VITALS: BMI 21.4
[2023-07-13] MEDS: BETAPACE 40 MG PO ×2 (07:39→19:53)
[2023-07-13] MEDS: ROCEPHIN 1000 MG IV (07:40)
[2023-07-13] MEDS: COLACE 100 MG PO ×2 (07:40→19:54)
[2023-07-13] MEDS: NORVASC 5 MG PO (07:40)
[2023-07-13] MEDS: STERILE WATER FOR INJECTION 10 ML IV (07:40)
[2023-07-13] MEDS: PEPCID 20 MG PO (07:40)
[2023-07-13] MEDS: FLUSH (NSS) 2 FLUSH IV (07:41)
[2023-07-13 08:20] VITALS: BP 139/67
--- NOTE | 2023-07-13 08:59 | W.PN.ONC ---
Today's Communication / Plan
-
Await bronch results
PET 05/21 shows [place] 1 (radiographic CR so suspect sweats unlikely DLCL but await bronch and path). Atypical infections more likely.
Further treatment of lymphoma TBD, will need to be rescheduled had 1 additional cycle pending
Monitor CBC
Impression
Impression
Pneumonia, JASON
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
Night sweats
Atrial fibrillation on Xarelto
Hx ET (prior Hydrea use)
Subjective/Objective
Subjective/Objective
Patient reported low-grade fever yesterday. Bronchoscopy completed yesterday.
Vital Signs:
Vital Signs
Temp Pulse Resp BP Pulse Ox
97.5 F 81 17 139/67 97
07/13/23 08:20 07/13/23 08:20 07/13/23 08:20 07/13/23 08:20 07/13/23 08:20
Physical Exam
General: Currently appears comfortable without dyspnea
HEENT: No scleral icterus
Respiratory: Crepitance in the right base decreased breath sounds in the left
Cardiac: S1/S2, Regular Rhythm and Murmur (III/ CHARLES)
GI: Soft, Non Tender, Non Distended and Normal Bowel Sounds
Musculoskeletal: No Clubbing, No Cyanosis and No Edema
Neuro: AO x 3 and Nonfocal/grossly intact
Psych: Appropriate
Lab Results:
Laboratory Data
WBC 10.2 10^3/uL (4.8-10.8) 07/12/23 04:24
Hgb 8.7 g/dL (13.0-18.0) L 07/12/23 04:24
Plt Count 441 10^3/uL (130-400) H 07/12/23 04:24
eGFR > 60.00 07/12/23 04:24
--- NOTE | 2023-07-13 09:28 | W.PN.PUL.V3 ---
Today's Communication / Plan
-
Bronchoscopy results pending
Increase activity
Continue antibiotics
Consider infectious disease consultation-outpatient antibiotics and length of treatment
Outpatient radiographic and pulmonary follow-up
Assessment
-
83-year-old male with a history of large B cell non-Hodgkin's lymphoma on chemotherapy complaining of mild shortness of breath, fevers and chills noted to have pneumonia and pulmonary was consulted for pneumonia 07/07/2023.
Pneumonia in immunocompromised patient with lymphoma undergoing chemotherapy
CT chest: Showed patchy bilateral groundglass opacities. Particularly on the left upper lobe.
Chemotherapy induced pancytopenia
Anemia-hemoglobin 10.3-normocytic
Neutropenic fevers
JACOBY
Mild hyponatremia-serum sodium 132
Conditions present prior to admission:
Hypertension.
Hyperlipidemia.
History of polycythemia
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
Glaucoma.
Atrial fibrillation on Xarelto
Plan
History consistent with acute/subacute infection with fevers, chills and night sweats along with radiographic abnormalities consistent with pneumonia
Appears nontoxic but continues to report night sweats as well as low-grade temperatures
He continues to deny any shortness of breath, hemoptysis or phlegm production
Overall his nights have been better-occasional temperatures but no drenching night sweats
Monitor persistent mild leukocytosis
Cultures reviewed-negative thus far
Urine Legionella and streptococcal antigens negative
Unable to produce sputum. All unable to produce a sputum.
Continue empiric antibiotics-finish finite course.
Bronchoscopy 07/12/2314-[id number] endobronchial lesions, minimal secretions, culture sent for routine, AFB, fungal, viral panel and and cytology-all pending
Chest x-ray 07/11/23 with progressive left greater than right interstitial infiltrates
Consider infectious disease consultation
Differential diagnosis includes also noninfectious pneumonitis, drug-induced pneumonitis, opportunistic infections, less likely malignant.
Oncology following-reviewed with Dr. Milligan does not believe infiltrates, chills, and night sweats are oncologically related and more likely atypical infection
Dr. Arzola saw patient 07/13/2023-correspondence reviewed
Dr. Álvarez updated daughter 07/10/23 as well as 07/12/23 at length
DVT prophylaxis recommended
Outpatient pulmonary follow-up, information will be left in the chart.
Diagnostic data:
Chest x-ray 03/30/2023-diffuse increased interstitial and groundglass opacifications
Chest x-ray 07/04/2023-NAD, mild interstitial fibrosis
Chest x-ray 07/06/2023-mild bilateral peripheral pneumonia slightly greater than right
CT chest 07/06/2023-mild pneumonia most pronounced left upper lobe, no adenopathy, mild dependent atelectasis
PET scan/-favorable/complete response to therapy, stable splenomegaly, interval resolution of previous hypermetabolic lymph nodes
Subjective Data
-
Date of Service:
Date of Service: July 13, 2023
Chief Complaint: Pulmonary Follow Up (Hypoxemic-possible pneumonia) and Dyspnea Follow Up
Subjective:
Feels better, no drenching night sweats, had mid afternoon yesterday temperature spike, no shortness of breath, ambulating without difficulties
Review of Systems
General: Other (Per HPI)
Objective Data
Data Reviewed
Vital Signs / I&O:
Vital Signs
Temp Pulse Resp BP Pulse Ox
97.5 F 81 17 139/67 97
07/13/23 08:20 07/13/23 08:20 07/13/23 08:20 07/13/23 08:20 07/13/23 08:20
Intake and Output
07/12/23 07/13/23 07/14/23
06:59 06:59 06:59
Intake Total 1200 / 1200 1520 / 1520
Output Total 300 / 300
Balance 1200 / 1200 1220 / 1220
SaO2: 97
Nasal Cannula flow liters per minute: 0
Physical Exam
General: Respiratory Distress (n) and Comfortable
HEENT: Normocephalic
Cardiovascular: Regular Rhythm
Respiratory: Clear, Wheeze (n), Crackles (n), Rhonchi, Non-Labored Respirations, Accessory Resp Muscle Use (n) and Stridor (n)
GI: Soft and Non Distended
Neurology: Awake, Alert and No Motor Deficits
Skin: Warm (n), Good Color (n), Cyanosis (n) and Jaundice (n)
Labs/Micro/Reports
Lab Data
07/12/23 04:24
Microbiology
07/12/23 09:35 Lingula Respiratory Culture - Preliminary
Usual Respiratory Vanna
07/12/23 09:35 Lingula Gram Stain - Preliminary
07/12/23 09:35 Bronch Left Upper Lobe Respiratory Culture - Preliminary
Usual Respiratory Vanna
07/12/23 09:35 Bronch Left Upper Lobe Gram Stain - Preliminary
07/12/23 09:35 Bronch Left Upper Lobe Fungal Culture - Preliminary
Culture in progress.
Positive cultures are reported as soon as detected.
Final report to follow in four to five weeks.
07/12/23 09:35 Lingula Fungal Culture - Preliminary
Culture in progress.
Positive cultures are reported as soon as detected.
Final report to follow in four to five weeks.
07/06/23 19:47 Blood/Venous Blood Culture - Final
No Growth - Final Report
07/06/23 16:05 Blood/Venous Blood Culture - Final
No Growth - Final Report
07/06/23 16:05 Blood/Venous Blood Culture - Final
No Growth - Final Report
[2023-07-13] MEDS: VIBRAMYCIN 100 MG PO ×2 (10:49→21:52)
[2023-07-13 11:16] VITALS: BP 149/64
--- NOTE | 2023-07-13 11:49 | W.PN.HOSP.TC ---
Today's Communication/Plan
-
Await ID input
Assessment / Plan
Assessment / Plan
Physical Exam
General: Other (83y M in no acute distress. Mild pallor.)
HEENT: Moist mucous membranes and
Respiratory: Limited, no significant rales. No wheezes.
Cardiac: S1/S2, Regular Rhythm and Murmur (III/ CHARLES)
GI: Soft, Non Tender, Non Distended and Normal Bowel Sounds
Musculoskeletal: No Clubbing, No Cyanosis and No Edema
Neuro: AO x 3 and Nonfocal/grossly intact
Hematologic/Lymphatic: Other (R ACW port in place. No erythema / tenderness.)
Psych: no agitation.
Patient is an 83y M with PMH significant for DLBCL who presented to ED for evaluation of fevers / chills x 4-5 days.
#Fever likely 2/2 atypical pneumonia bacterial/viral
Patient denied sob or cough.
No fevers. No tachycardia. No GI symptoms. No urinary symptoms. No rash. No extremity swelling.
- Antibiotics for coverage of possible pneumonia per images. Doxy and Rocephin.
- urine culture is negative. Port in right upper chest looks clean with no tenderness or erythema.
- CT is reviewed.
- Blood culture no growth so far
- Negative COVID status
- CXR with bilateral infiltrates. ?viral pneumonia/pneumonitis.
- Per oncology, fever not malignancy related. Leukocytosis resolved.
- s/p bronchoscopy
- Hopefully some preliminary data results in next 24 hours. Preliminary respiratory culture with usual respiratory lurdes
- Appreciate pulmonary help
- Spiking fever intermittently on abx. Will ask ID input
# Hyponatremia-resolved.
# JACOBY
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
- SCr = 1.4 compared to known baseline of 1.0. Creatinine 1.1 back to baseline
- Holding Lasix (which he only takes PRN).
- BNP markedly decreased from prior.
- Received some IVFs in the ED - hold further for now.
- Follow for improvement in renal function.
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
History of Polycythemia/ET
- Primary oncologist Dr Milligan.
- Cell counts appear stable at present.
- Chemotherapy : next and final dose was scheduled for this Monday/ but now rescheduled.
# History of Chemotherapy induced pancytopenia. Currently his counts are not low other than mild anemia which is anemia of malignancy/ chemo related.
# Paroxysmal Atrial Fibrillation
- No chest pain. Continue Sotalol.
- Continue Xarelto for stroke risk reduction.
# DVT Prophylaxis: On Xarelto
Code Status: Full
d/w with son at bedside in details on 07/11.
Anticipated Discharge: Within 24 hours
Subjective/Interval History
-
Date of Service: July 13, 2023
spiked fever yesterday post bronch
Objective Data
-
Labs:
Laboratory Results
07/13/23
08:06
WBC Pending
Hgb Pending
Hct Pending
Plt Count Pending
Vital Signs:
Vital Signs
Temp Pulse Resp BP Pulse Ox
97.6 F 69 17 149/64 92
07/13/23 11:16 07/13/23 11:16 07/13/23 11:16 07/13/23 11:16 07/13/23 11:16
I&O
07/12/23 07/13/23 07/14/23
06:59 06:59 06:59
Intake Total 1200 / 1200 1520 / 1520
Output Total 300 / 300
Balance 1200 / 1200 1220 / 1220
[2023-07-13 13:56] LABS: % Basophils 0.8 % (0-2); % Immature Granulocytes 0.8 % (0-0.5); % Lymphocytes 6.2 % (20.5-51.1); % Monocytes 13.6 % (1.7-9.3); % Neutrophils 68.6 % (42.2-75.2); Absolute Basophils 0.1 10^3/uL (0-0.2); Absolute Eosinophils 1.2 10^3/uL (0-0.7); Absolute Immature Granulocytes 0.1 10^3/uL (0-0.05); Absolute Lymphocytes 0.7 10^3/uL (1.2-3.4); Absolute Monocytes 1.6 10^3/uL (0.1-0.6); Absolute Neutrophils 8.1 10^3/uL (1.4-6.5); Hematocrit 26.7 % (39.0-52.0); Hemoglobin 9.3 g/dL (13.0-18.0); Mean Corp Hgb Conc. 34.8 g/dL (33.0-37.0); Mean Platelet Volume 9.7 fL (7.4-10.4); Nucleated Red Blood Cells % 0 % (-); Platelet Count 511 10^3/uL (130-400); Red Cell Dist. Width 14.7 % (11.5-14.5); White Blood Cell Count 11.8 10^3/uL (4.8-10.8)
--- NOTE | 2023-07-13 14:45 | CON.ID ---
Consultation
-
Date/Time Consultation Requested: 07/12/2023 1619
Date/Time Consultation Performed: 07/13/2023 1408
Requesting Provider: Dr. Ballesteros
Performing Provider: Dr. Bowser
Reason for Consultation: Fever; question pneumonia versus pneumonitis
Chief Complaint / Past History
History of Present Illness
Ed Senior is an 83-year-old male being evaluated at the request of Dr. Ballesteros in regards to fever and pneumonia/pneumonitis. History is obtained from chart review, along with patient interview.
Patient reports a history of stage IV large B-cell lymphoma receiving mini-RCHOP therapy, with a diagnosis earlier this year. Review hospital EMR records indicate that he was admitted here in March, following a recent hospitalization at another
hospital. During the March hospitalization was treated for right infiltrates, it was noted it was not clear whether this was fluid overload or pneumonia. He did not have any pulmonary symptomatology (i.e. cough or sputum production) at that
time, although hypoxemia was noted, requiring supplemental O2 via nasal cannula. Ultimately he was discharged to home.
He presented back on 07/06/2023 secondary to fatigue. He reports that at this point he had had 4 days of fever and progressive fatigue. He notes that temperatures at home are greater than 100 �F. He denies any chills at that time. In the ER he
was found to have leukocytosis, and started on empiric antibiotics. Since admission he has had ongoing intermittent fevers, and Infectious Diseases is asked to comment further antimicrobial therapy.
At this time he denies any cough or sputum production. He denies any shortness of breath.
He denies any travel. He has no pet exposure. He has no known sick contacts. He denies any rashes.
Past History
Additional Past Medical History:
A-fib
HTN
Large B-cell lymphoma
Additional Past Surgical History:
Port-A-Cath placement
Knee surgery
Hernia repair
Allergy History:
No Known Allergies Allergy (Verified 07/06/23 14:04)
Medications Reviewed: Yes
Current Antibiotics:
Ceftriaxone (day #7)
Doxycycline (day #7)
Social History
Tobacco: Non-Smoker
Alcohol: None
Drug: None
Living: With Family
Employment: Retired
Family History
Family History: Not Pertinent
Review of Systems
Vital Signs
Temp Pulse Resp BP Pulse Ox
97.6 F 69 17 149/64 92
07/13/23 11:16 07/13/23 11:16 07/13/23 11:16 07/13/23 11:16 07/13/23 11:16
Physical Exam
Physical Exam
Constitutional: No Acute Distress, Comfortable, Chronically Ill and Non-toxic
Eyes: Pupils Equal, Pupils Round, No Conjunctival Hemorrhage and Sclera Anicteric
Oral: No Thrush and No Ulcers
Cardiovascular: S1/S2; Negative S3/S4
Pulmonary: Rales, Coarse and Non Labored; Negative Rhonchi
Gastrointestinal: Soft, Non Tender, Non Distended, Normal Bowel Sounds, No Rebound and No Guarding
Extremities: Negative Edema, Cyanosis or Erythema
Neurological: Awake and Alert
Psychological: Calm
Lab / Diagnostic Study Results
07/13/23 13:45
07/12/23 04:24
Abs Immat Gran (auto) 0.1 10^3/uL (0-0.05) H 07/13/23 13:45
Absolute Neuts (auto) 8.1 10^3/uL (1.4-6.5) H 07/13/23 13:45
Absolute Lymphs (auto) 0.7 10^3/uL (1.2-3.4) L 07/13/23 13:45
Absolute Monos (auto) 1.6 10^3/uL (0.1-0.6) H 07/13/23 13:45
Absolute Basos (auto) 0.1 10^3/uL (0-0.2) 07/13/23 13:45
Immature Gran % 0.8 % (0-0.5) H 07/13/23 13:45
Neutrophils % 68.6 % (42.2-75.2) 07/13/23 13:45
Lymphocytes % 6.2 % (20.5-51.1) L 07/13/23 13:45
Monocytes % 13.6 % (1.7-9.3) H 07/13/23 13:45
Eosinophils % 10.0 % (0-6) H 07/13/23 13:45
Basophils % 0.8 % (0-2) 07/13/23 13:45
Lactic Acid Cancelled 07/06/23 19:45
Microbiology Results
Micro:
07/12/23 09:35 Respiratory Virus Culture - Preliminary
Bronch Left Upper Lobe
07/12/23 09:35 Respiratory Culture - Preliminary
Lingula Usual Respiratory Vanna
Gram Stain - Preliminary
07/12/23 09:35 Respiratory Culture - Preliminary
Bronch Left Upper Lobe Usual Respiratory Vanna
Gram Stain - Preliminary
07/12/23 09:35 Fungal Culture - Preliminary
Bronch Left Upper Lobe Culture in progress.
Positive cultures are reported as soon as detected.
Final report to follow in four to five weeks.
07/12/23 09:35 Fungal Culture - Preliminary
Lingula Culture in progress.
Positive cultures are reported as soon as detected.
Final report to follow in four to five weeks.
07/12/23 09:35 Acid Fast Bacilli Smear - Pending
Lingula Acid Fast Bacilli Culture - Pending
07/12/23 09:35 Acid Fast Bacilli Smear - Pending
Bronch Left Upper Lobe Acid Fast Bacilli Culture - Pending
07/06/23 19:47 Blood Culture - Final
Blood/Venous No Growth - Final Report
07/06/23 16:05 Blood Culture - Final
Blood/Venous No Growth - Final Report
07/06/23 16:05 Blood Culture - Final
Blood/Venous No Growth - Final Report
Imaging:
07/11/2023 CXR (2 view): Increased reticular nodular and slightly more confluent opacities within the left lung, relatively sparing the apex, increased from radiograph of 07/06/2023. Mild reticulonodular parenchymal opacity within the right mid to
lower lung, probably slightly increased. No evidence for significant pleural effusion.
07/06/2023 CT chest with IV contrast: Scattered regions of subtle interstitial and groundglass opacity are noted, more pronounced in the left upper lobe. No dense consolidation noted mild dependent atelectasis noted. Please see full dictation for
additional detail.
Assessment / Plan
Intermittent fevers of unclear etiology.
Pulmonary infiltrates
Leukocytosis
Large B-cell lymphoma
-On chemotherapy
A-fib
HTN
Recommendations:
Etiology of fevers not especially clear.
Patient is status post bronchoscopy, with cultures pending.
Viral culture ordered and pending.
Will additionally try to elucidate etiology of infiltrates with viral respiratory PCR panel.
Await further studies, including pathology from recent bronchoscopy.
Continue with doxycycline. Can transition ceftriaxone to cefdinir. Would continue both for an additional 7 days.
Follow white count and temperature curve.
[2023-07-13 16:25] VITALS: BP 148/61
--- NOTE | 2023-07-13 16:58 | CM ---
IMM reviewed pt signed on chart.
Pt requested [facility] .
As per care port [facility] accpeted him.
Family will drive him home.
PLAN Home with [facility]
[2023-07-13] MEDS: LIPITOR 20 MG PO (17:01)
[2023-07-13] MEDS: XARELTO 15 MG PO (17:01)
[2023-07-13 19:20] VITALS: BP 142/57
[2023-07-13] MEDS: OMNICEF 300 MG PO (19:53)
[2023-07-13] MEDS: XALATAN OPHTHALMIC SOLUTION 1 DROP BOTH EYES (21:52)
[2023-07-13 23:59] VITALS: BP 124/54
[2023-07-14 03:13] VITALS: BP 114/54
[2023-07-14 06:00] VITALS: BMI 21.4
[2023-07-14] MEDS: NORVASC 5 MG PO (07:12)
[2023-07-14] MEDS: OMNICEF 300 MG PO (07:12)
[2023-07-14] MEDS: BETAPACE 40 MG PO (07:12)
[2023-07-14] MEDS: COLACE 100 MG PO (07:13)
[2023-07-14] MEDS: PEPCID 20 MG PO (07:13)
[2023-07-14 07:31] VITALS: BP 139/57
[2023-07-14 08:39] LABS: % Basophils 0.9 % (0-2); % Eosinophils 10.8 % (0-6); % Immature Granulocytes 0.6 % (0-0.5); % Lymphocytes 5.4 % (20.5-51.1); % Monocytes 13.1 % (1.7-9.3); % Neutrophils 69.2 % (42.2-75.2); Absolute Basophils 0.1 10^3/uL (0-0.2); Absolute Eosinophils 1.2 10^3/uL (0-0.7); Absolute Immature Granulocytes 0.1 10^3/uL (0-0.05); Absolute Lymphocytes 0.6 10^3/uL (1.2-3.4); Absolute Monocytes 1.5 10^3/uL (0.1-0.6); Absolute Neutrophils 7.8 10^3/uL (1.4-6.5); Hematocrit 27.2 % (39.0-52.0); Hemoglobin 9.2 g/dL (13.0-18.0); Mean Corp Hgb Conc. 33.8 g/dL (33.0-37.0); Mean Corpuscular Hgb 31.1 pg (27.0-31.0); Mean Corpuscular Volume 91.9 fL (80.0-94.0); Mean Platelet Volume 9.8 fL (7.4-10.4); Nucleated Red Blood Cells % 0 % (-); Platelet Count 480 10^3/uL (130-400); Red Blood Cell Count 2.96 10^6/uL (4.70-6.10); Red Cell Dist. Width 14.6 % (11.5-14.5); White Blood Cell Count 11.2 10^3/uL (4.8-10.8)
--- NOTE | 2023-07-14 08:42 | W.PN.ONC ---
Today's Communication / Plan
-
07/12 Bronchoscopy
Await cultures and pathology
07/13 WBC 11.2, Hgb 9.2, Hct 27.2, PLT 480
Afebrile overnight
Infectious Disease consult
Doxycycline and Cefdinir recommended
Supportive care
Discharge planning
[place] office updated of patient's clinical status.
He will need follow up with Dr. Milligan prior to his final treatment which will be rescheduled.
Impression
Impression
Pneumonia, JASON
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
Intermittent fevers/chills
Night sweats
Atrial fibrillation on Xarelto
Hx ET (prior Hydrea use)
Subjective/Objective
Subjective/Objective
patient is resting in bed comfortably. denies acute pain or shortness of breath. he is relieved that he did not have fever/chills or sweats overnight. he is eager for discharge.
Vital Signs:
Vital Signs
Temp Pulse Resp BP Pulse Ox
97.6 F 69 16 139/57 96
07/14/23 07:31 07/14/23 07:31 07/14/23 07:31 07/14/23 07:31 07/14/23 07:31
physical exam:
aaox3, pallor
lungs: LLL/RLL crackles, JASON/RUL clear, room air
Lab Results:
Laboratory Data
WBC 11.8 10^3/uL (4.8-10.8) H 07/13/23 13:45
Hgb 9.3 g/dL (13.0-18.0) L 07/13/23 13:45
Plt Count 511 10^3/uL (130-400) H 07/13/23 13:45
eGFR > 60.00 07/12/23 04:24
--- NOTE | 2023-07-14 09:21 | W.PN.PUL.V3 ---
Today's Communication / Plan
-
Antibiotics per infectious disease
Bronchoscopy results summarized including stains, routine cultures, and cytology
Pulmonary status stabilizing and stable for potential discharge with pulmonary follow-up
Assessment
-
83-year-old male with a history of large B cell non-Hodgkin's lymphoma on chemotherapy complaining of mild shortness of breath, fevers and chills noted to have pneumonia and pulmonary was consulted for pneumonia 07/07/2023.
Pneumonia in immunocompromised patient with lymphoma undergoing chemotherapy
CT chest: Showed patchy bilateral groundglass opacities. Particularly on the left upper lobe.
Chemotherapy induced pancytopenia
Anemia-hemoglobin 10.3-normocytic
Neutropenic fevers
JACOBY
Mild hyponatremia-serum sodium 132
Conditions present prior to admission:
Hypertension.
Hyperlipidemia.
History of polycythemia
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
Glaucoma.
Atrial fibrillation on Xarelto
Plan
History consistent with acute/subacute infection with fevers, chills and night sweats along with radiographic abnormalities consistent with pneumonia
Appears nontoxic but continues to report night sweats as well as low-grade temperatures-oncology does not believe oncologically related
Differential diagnosis includes also noninfectious pneumonitis, drug-induced pneumonitis, opportunistic infections, less likely malignant.
He continues to deny any shortness of breath, hemoptysis or phlegm production
Overall his nights have been better-occasional temperatures but no drenching night sweats-no temperatures since 07/12/2023
Monitor persistent mild leukocytosis
Cultures reviewed-negative thus far
Urine Legionella and streptococcal antigens negative
Nasopharyngeal viral swab-pending
Unable to produce sputum
Continue empiric antibiotics-finish finite course.
Bronchoscopy 07/12/2332-[id number] endobronchial lesions, minimal secretions, culture sent for routine-rare WBCs, no organisms, usual respiratory lurdes, AFB stains negative, fungal pending, viral cultures pending and cytology-negative for malignant
cells
Chest x-ray 07/11/23 with progressive left greater than right interstitial infiltrates
Infectious disease consultation obtained-correspondence reviewed-changed to cefdinir and doxycycline and continue for an additional 7 days
Oncology following-reviewed with Dr. Milligan does not believe infiltrates, chills, and night sweats are oncologically related and more likely atypical infection
Dr. Arzola saw patient 07/13/2023-correspondence reviewed
Dr. Membreno saw patient 07/13/2023-correspondence reviewed
Respiratory status improved-on room air, ambulating, no complaints,-stable for potential discharge from a pulmonary perspective with pulmonary follow-up
Note: Dr. Álvarez updated daughter 07/10/23 as well as 07/12/23 at length
DVT prophylaxis recommended
Outpatient pulmonary follow-up, information will be left in the chart.
Diagnostic data:
Chest x-ray 03/30/2023-diffuse increased interstitial and groundglass opacifications
Chest x-ray 07/04/2023-NAD, mild interstitial fibrosis
Chest x-ray 07/06/2023-mild bilateral peripheral pneumonia slightly greater than right
CT chest 07/06/2023-mild pneumonia most pronounced left upper lobe, no adenopathy, mild dependent atelectasis
PET scan/-favorable/complete response to therapy, stable splenomegaly, interval resolution of previous hypermetabolic lymph nodes
Subjective Data
-
Date of Service:
Date of Service: July 14, 2023
Chief Complaint: Pulmonary Follow Up (Hypoxemic-possible pneumonia) and Dyspnea Follow Up
Subjective:
Feels better, no complaints of shortness of breath, ambulating without difficulties, no productive cough, chest pain, abdominal pain
Review of Systems
General: Other (Per HPI)
Objective Data
Data Reviewed
Vital Signs / I&O:
Vital Signs
Temp Pulse Resp BP Pulse Ox
97.6 F 69 16 139/57 96
07/14/23 07:31 07/14/23 07:31 07/14/23 07:31 07/14/23 07:31 07/14/23 07:31
Intake and Output
07/13/23 07/14/23 07/15/23
06:59 06:59 06:59
Intake Total 1520 / 1520 1200 / 1200
Output Total 300 / 300
Balance 1220 / 1220 1200 / 1200
SaO2: 96
Nasal Cannula flow liters per minute: 0
Physical Exam
General: Respiratory Distress (n) and Comfortable
HEENT: Normocephalic
Cardiovascular: Regular Rhythm
Respiratory: Wheeze (n), Crackles (Bilateral bases), Rhonchi, Non-Labored Respirations, Accessory Resp Muscle Use (n) and Stridor (n)
GI: Soft and Non Distended
Neurology: Awake, Alert and No Motor Deficits
Skin: Warm (n), Good Color (n), Cyanosis (n) and Jaundice (n)
Labs/Micro/Reports
Lab Data
07/14/23 08:31
07/12/23 04:24
Microbiology
07/12/23 09:35 Bronch Left Upper Lobe Acid Fast Bacilli Smear - Preliminary
07/12/23 09:35 Bronch Left Upper Lobe Acid Fast Bacilli Culture - Preliminary
07/12/23 09:35 Lingula Acid Fast Bacilli Smear - Preliminary
07/12/23 09:35 Lingula Acid Fast Bacilli Culture - Preliminary
07/12/23 09:35 Bronch Left Upper Lobe Respiratory Virus Culture - Preliminary
07/12/23 09:35 Lingula Respiratory Culture - Preliminary
Usual Respiratory Lurdes
07/12/23 09:35 Lingula Gram Stain - Preliminary
07/12/23 09:35 Bronch Left Upper Lobe Respiratory Culture - Preliminary
Usual Respiratory Lurdes
07/12/23 09:35 Bronch Left Upper Lobe Gram Stain - Preliminary
07/12/23 09:35 Bronch Left Upper Lobe Fungal Culture - Preliminary
Culture in progress.
Positive cultures are reported as soon as detected.
Final report to follow in four to five weeks.
07/12/23 09:35 Lingula Fungal Culture - Preliminary
Culture in progress.
Positive cultures are reported as soon as detected.
Final report to follow in four to five weeks.
07/06/23 19:47 Blood/Venous Blood Culture - Final
No Growth - Final Report
07/06/23 16:05 Blood/Venous Blood Culture - Final
No Growth - Final Report
07/06/23 16:05 Blood/Venous Blood Culture - Final
No Growth - Final Report
[2023-07-14] MEDS: VIBRAMYCIN 100 MG PO (10:49)
[2023-07-14 11:22] VITALS: BP 122/65
--- NOTE | 2023-07-14 11:40 | W.PN.ID1 ---
Date of Service
Date of Service: July 14, 2023
Today's Communication
Continue doxycycline and cefdinir for an additional 6 days.
Assessment / Plan
Intermittent fevers of unclear etiology.
Pulmonary infiltrates
Leukocytosis
Large B-cell lymphoma
-On chemotherapy
A-fib
HTN
Recommendations:
Etiology of fevers not especially clear.
Patient is status post bronchoscopy, with cultures pending.
Viral culture ordered and pending.
Await viral respiratory PCR panel.
Await further studies, including pathology from recent bronchoscopy.
Continue doxycycline and cefdinir for an additional 6 days.
Follow white count and temperature curve.
����������������������������������������������������������
Chief Complaint
-: Fever
Subjective / Review of Systems
Review of Systems: No Fever and No Chills
Vital Signs / Physical Exam
Vital Signs
Vital Signs
Temp Pulse Resp BP Pulse Ox
97.7 F 66 16 122/65 96
07/14/23 11:22 07/14/23 11:22 07/14/23 11:22 07/14/23 11:22 07/14/23 11:22
Physical Exam
Constitutional: Comfortable, Chronically Ill and Non-toxic
Head: Normocephalic
Eyes: Pupils Equal, Pupils Round, No Conjunctival Hemorrhage and Sclera Anicteric
Cardiovascular: S1/S2; Negative S3/S4
Pulmonary: Non Labored
Gastrointestinal: Soft and Non Distended
Neurological: Awake and Alert
Psychological: Calm
Objective Data
Lab Data
Lab Results
07/14/23 08:31
07/12/23 04:24
Estimated Creat Clear 44 ml/min 07/12/23 04:24
Lactic Acid Cancelled 07/06/23 19:45
Total Bilirubin 0.5 mg/dl (0.2-1.3) 07/09/23 05:37
AST 35 U/L (17-59) 07/09/23 05:37
ALT 36 U/L (0-50) 07/09/23 05:37
Alkaline Phosphatase 292 U/L (38-126) H 07/09/23 05:37
Most recent labs reviewed.
Micro Results:
07/12/23 09:35 Respiratory Culture - Final
Lingula Usual Respiratory Vanna
Gram Stain - Final
07/12/23 09:35 Respiratory Culture - Final
Bronch Left Upper Lobe Usual Respiratory Vanna
Gram Stain - Final
07/12/23 09:35 Acid Fast Bacilli Smear - Preliminary
Bronch Left Upper Lobe Acid Fast Bacilli Culture - Preliminary
07/12/23 09:35 Acid Fast Bacilli Smear - Preliminary
Lingula Acid Fast Bacilli Culture - Preliminary
07/12/23 09:35 Respiratory Virus Culture - Preliminary
Bronch Left Upper Lobe
07/12/23 09:35 Fungal Culture - Preliminary
Bronch Left Upper Lobe Culture in progress.
Positive cultures are reported as soon as detected.
Final report to follow in four to five weeks.
07/12/23 09:35 Fungal Culture - Preliminary
Lingula Culture in progress.
Positive cultures are reported as soon as detected.
Final report to follow in four to five weeks.
07/06/23 19:47 Blood Culture - Final
Blood/Venous No Growth - Final Report
07/06/23 16:05 Blood Culture - Final
Blood/Venous No Growth - Final Report
07/06/23 16:05 Blood Culture - Final
Blood/Venous No Growth - Final Report
Imaging:
07/11/2023 CXR (2 view): Increased reticular nodular and slightly more confluent opacities within the left lung, relatively sparing the apex, increased from radiograph of 07/06/2023. Mild reticulonodular parenchymal opacity within the right mid to
lower lung, probably slightly increased. No evidence for significant pleural effusion.
07/06/2023 CT chest with IV contrast: Scattered regions of subtle interstitial and groundglass opacity are noted, more pronounced in the left upper lobe. No dense consolidation noted mild dependent atelectasis noted. Please see full dictation for
additional detail.
Care Review
Plan reviewed with: Physician (Pulmonary)
--- NOTE | 2023-07-14 11:48 | W.PN.HOSP.TC ---
Today's Communication/Plan
-
DC po abx for 6d
Assessment / Plan
Assessment / Plan
Physical Exam
General: Other (83y M in no acute distress. Mild pallor.)
HEENT: Moist mucous membranes and
Respiratory: Limited, no significant rales. No wheezes.
Cardiac: S1/S2, Regular Rhythm and Murmur (III/ CHARLES)
GI: Soft, Non Tender, Non Distended and Normal Bowel Sounds
Musculoskeletal: No Clubbing, No Cyanosis and No Edema
Neuro: AO x 3 and Nonfocal/grossly intact
Hematologic/Lymphatic: Other (R ACW port in place. No erythema / tenderness.)
Psych: no agitation.
Patient is an 83y M with PMH significant for DLBCL who presented to ED for evaluation of fevers / chills x 4-5 days.
#Fever likely 2/2 atypical pneumonia bacterial/viral
Patient denied sob or cough.
No fevers. No tachycardia. No GI symptoms. No urinary symptoms. No rash. No extremity swelling.
- Antibiotics for coverage of possible pneumonia per images. Doxy and Rocephin.
- urine culture is negative. Port in right upper chest looks clean with no tenderness or erythema.
- CT is reviewed.
- Blood culture no growth so far
- Negative COVID status
- CXR with bilateral infiltrates. ?viral pneumonia/pneumonitis.
- Per oncology, fever not malignancy related. Leukocytosis resolved.
- s/p bronchoscopy
- Preliminary respiratory culture with usual respiratory lurdes
- Appreciate pulmonary help. OP pulm f/u.
- Viral resp culture in lab.
- Per ID plan for Cefdinir/doxy for additional 6 days.s
# Hyponatremia-resolved.
# JACOBY on CKD stage IIIB
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
- Holding Lasix (which he only takes PRN).
- BNP markedly decreased from prior.
- Received some IVFs in the ED - hold further for now.
- Follow for improvement in renal function.
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
History of Polycythemia/ET
- Primary oncologist Dr Milligan.
- Cell counts appear stable at present.
- Plan remains to finish last course of chemo.
# History of Chemotherapy induced pancytopenia. Currently his counts are not low other than mild anemia which is anemia of malignancy/ chemo related.
# Paroxysmal Atrial Fibrillation
- No chest pain. Continue Sotalol.
- Continue Xarelto for stroke risk reduction.
# DVT Prophylaxis: On Xarelto
Code Status: Full
Discussed with infectious disease. Okay for discharge.
More than 30 minutes spent in discharge including
Final examination of the patient
Summarizing hospital stay
Instructions for continuing care to all relevant caregivers
Preparation of discharge records, prescriptions, and referral forms
Total time spent (in minutes): 50
Anticipated Discharge: Today
Subjective/Interval History
-
Date of Service: July 14, 2023
Feeling better
remains afebrile
tolerating diet
Objective Data
-
Labs:
Laboratory Results
07/14/23
08:31
WBC 11.2 H
Hgb 9.2 L
Hct 27.2 L
Plt Count 480 H
Vital Signs:
Vital Signs
Temp Pulse Resp BP Pulse Ox
97.7 F 66 16 122/65 96
07/14/23 11:22 07/14/23 11:22 07/14/23 11:22 07/14/23 11:22 07/14/23 11:22
I&O
07/13/23 07/14/23 07/15/23
06:59 06:59 06:59
Intake Total 1520 / 1520 1200 / 1200
Output Total 300 / 300
Balance 1220 / 1220 1200 / 1200
[2023-07-14 12:05] VITALS: PULSE 77; O2SAT 97
--- NOTE | 2023-07-14 12:20 | CM ---
MD entered order for discharge.
Pt said he was ready for dc today.
Pt requested [facility] .[facility] aware of dc today.
As per care port [facility] accepted him.
Son in law Barrie will drive him home.
IMM done 2 days ago .
PLAN Home with [facility]
--- NOTE | 2023-07-14 12:56 | PTOTSP ---
PATIENT ABLE TO MOBILIZE INDEPENDENTLY ON LEVEL SURFACES WELL ELEVATIONS REQUIRING NO FURTHER ACUTE CARE SKILLED P.T. AT THIS TIME. WILL DISCHARGE FROM P.T. SERVICES.
--- NOTE | 2023-07-14 13:48 | W.DCSUMMARY ---
Discharge Summary
Discharge Data
Date of Admission: 07/06/23
Date of Discharge: 07/14/23
-
Pending Results: Yes
Additional Pending Results:
Bronchoscopy culture results with pulmonary as outpatient
Hospital Course
Patient is an 83y M with PMH significant for DLBCL who presented to ED for evaluation of fevers / chills x 4-5 days. Patient did not have any pulmonary symptoms. Patient denies shortness of breath or cough. Patient without any tachycardia.
Patient no GI symptoms. No urinary symptoms. No rash. No extremity swelling. There was concern for pneumonia and patient was started on ceftriaxone and doxycycline. Blood cultures were negative. COVID was negative. Pulmonary was consulted.
Oncology was consulted. Patient continued to spike fever and underwent bronchoscopy. Preliminary respiratory culture from [facility] with usual respiratory lurdes. Patient continues spike fever infectious disease was consulted. Patient started to
remain afebrile. Patient was tolerating diet. Had mild elevated creatinine which downtrended. Patient was tolerating diet. Discussed case with infectious disease and patient can be discharged with additional 6 days of antibiotics of cefdinir and
doxycycline. Patient agreed with the plan. Patient follow-up outpatient with pulmonary for additional culture bronchoscopy results. Patient will follow with Dr. Milligan his primary oncologist for his last chemotherapy regimen.
Discharge Plan
-
Patient Disposition: Home (Routine Discharge)
Discharge Diagnosis/Procedures: Fevers likely second atypical pneumonia viral versus bacterial
Hyponatremia
Acute kidney injury on chronic kidney disease
Condition: Fair
Diet: As tolerated
Activity: With assistance and As tolerated
Driving Restrictions: As prior to admission
Referrals:
Karl Álvarez MD [Active] - in two to three weeks (Or nurse [id number] pneumonia and possible pulmonary fibrosis and follow-up on the bronchoscopy culture results)
UNKNOWN - PT DOES,NOT KNOW [Family Provider] - in less than 1 week
Prescriptions:
New
doxycycline hyclate 100 mg Capsule
100 mg PO Q12@1000,2200 Qty: 12 0RF
cefdinir 300 mg Capsule
300 mg PO Q12 Qty: 12 0RF
Continued
Adriamycin
1 dose IV Q21D
latanoprost 0.005 % Drops
1 drp BOTH EYES HS
atorvastatin 20 mg Tablet
20 mg PO QPM
sotalol 80 mg Tablet
40 mg PO BID
prednisone 20 mg Tablet
100 mg PO DIRECTED
Patient Comments:
07/06/2023: take 5 tablets for 4 days following chemotherapy treatment Q21D.
cyanocobalamin (vitamin B-12) 1,000 mcg Tablet
1,000 mcg PO DAILY Qty: 0
Patient Comments:
03/27/2023, sublingual tablet.
amlodipine 5 mg Tablet
5 mg PO DAILY
docusate sodium [Stool Softener] 100 mg Capsule
100 mg PO DAILY
cholecalciferol (vitamin D3) 25 mcg (1,000 unit) Tablet
25 mcg PO DAILY Qty: 0
Xarelto 15 mg Tablet
15 mg PO QPM
Rituxan
1 dose IV Q21D
cyclophosphamide
1 dose IV Q21D
vincristine
1 dose IV Q21D
ferrous sulfate 325 mg (65 mg iron) Tablet
325 mg PO DAILY
famotidine [Pepcid] 20 mg Tablet
20 mg PO BID
Held
furosemide 20 mg tablet
20 mg PO DAILY PRN (Reason: swelling)
Hold Instructions: Resume on 07/21/23.
Discontinued
ondansetron 4 mg Tablet,Disintegrating
4 mg PO Q6H PRN (Reason: nausea/vomiting)
Discharge Orders:
Discharge Patient (As Directed); Ordered 07/14/23
Ordered By: Trerell Ballesteros
Discharge Date and Time
Print Language: FRISIAN
--- NOTE | 2023-07-14 13:55 | PN.CDI ---
CDI
- -
CDI:
Physician Documentation Request
Admit Date: 07/06/23 21:56
Dear Doctor Favian,
Clinical Indicators:
Documentation in the record includes the diagnosis of JACOBY and CKD. The following clinical information was noted in the record:
6/7 PN, 'JACOBY on CKD stage IIIB'
Cr/GFR trend (during admission):
07/06/23 07/07/23 07/09/23
16:05 04:30 05:37
Creatinine 1.4 H 1.3 1.1
eGFR 49.87 54.51 > 60.00
07/10/23 07/12/23
06:22 04:24
Creatinine 1.1 1.2
eGFR > 60.00 > 60.00
Cr/GFR (outpatient lab 07/03):
07/04/23
15:35
Creatinine 1.3
eGFR 54.51
Please clarify which of the following most accurately represents the patient's renal status:
CKD IIIb with rise in creatinine only
JACOBY on CKD IIIb (documentation complete)
Other, please specify
Criteria for JACOBY*
1 Increase in serum creatinine by > or = to 0.3 mg/dL (> or = to 26.5 micromol/L) within 48 hours, OR
2 Increase in serum creatinine to > or = to 1.5 times baseline, which is known or presumed to have occurred within 7 days, OR
3 Urine volume < 0.5 nL/kg/hour for six hours
Stages of Chronic Kidney Disease*
Level Description GFR
G1 Normal or High >90
G2 Mildly decreased 60-89
G3a Mildly to moderately decreased 45-59
G3b Moderately to severely decreased 30-44
G4 Severely decreased 15-29
G5 Kidney failure <15
Use of terms such as suspected, likely, concern for, or probable (associated with a specific diagnosis that is being evaluated, monitored, or treated as if it exists) are acceptable and can be coded in the inpatient setting, when documented at the
time of discharge.
Thank you,
LUIS ARMANDO Perez RN
CDI Specialist
available via tiger text
Please use your independent medical judgment in providing your response.
*Source: Kidney Disease: Improving Global Outcomes (KDIGO) 2012
== END 2023-07-14 14:25 | disposition home health service (06) | DRG 194 ==
LOC: 3 WEST ACU 21:56
PROVIDERS: Internal Medicine; Internal Medicine Hematology & Oncology; Nurse Practitioner; Nurse Practitioner Family; ADMITTING PHYSICIAN Hospitalist; ATTENDING PHYSICIAN Hospitalist; CONSULT PHYSICIAN Internal Medicine Infectious Disease; EMERGENCY PHYSICIAN Emergency Medicine; OTHER PHYSICIAN Internal Medicine Critical Care Medicine; OTHER PHYSICIAN Internal Medicine Hematology & Oncology
PROC: 0BJ08ZZ Inspection of Tracheobronchial Tree, Via Natural or Artificial Opening Endoscopic (ICD-10-PCS; 2023-07-12)
DX: J18.1 Lobar pneumonia, unspecified organism (principal); C83.30 Diffuse large B-cell lymphoma, unspecified site; N17.9 Acute kidney failure, unspecified; D84.9 Immunodeficiency, unspecified; E87.1 Hypo-osmolality and hyponatremia; I50.32 Chronic diastolic (congestive) heart failure; J98.11 Atelectasis; Z79.01 Long term (current) use of anticoagulants; D70.9 Neutropenia, unspecified; Z87.891 Personal history of nicotine dependence; D64.81 Anemia due to antineoplastic chemotherapy; I11.0 Hypertensive heart disease with heart failure; Z11.52 Encounter for screening for COVID-19
CPT/HCPCS: 36415; 71046; 71260; 80048; 80053; 80061; 81003; 82607; 82746; 83605; 83615; 83880; 84550; 85025; 85045; 86618; 87015; 87040; 87070; 87086; 87102; 87106; 87116; 87205; 87252; 87811; 88112; 93005; 96360; 97116; 97162; 97166; 97530; 97535; 99285; Q9967